=== PATIENT | female | born 1975 | race Caucasian/White ===

== ENCOUNTER 2020-05-25 07:59 | Outpatient (CLI) | payer BC, SELFPAY ==
--- NOTE | ~2020-05-25 | MM_ITS ---
EXAMINATION: MM screening urszula BI w lana HISTORY: Screening TECHNIQUE: Craniocaudal and mediolateral oblique 3-D tomosynthesis images were obtained and synthetic 2-D images were generated. CAD analysis was submitted and interpreted. COMPARISON: Comparison to multiple prior studies sequentially, with oldest reviewed study dated 03/2014. BREAST PARENCHYMAL COMPOSITION: There are scattered areas of fibroglandular density. FINDINGS: There are developing cluster of nonspecific calcifications mid outer aspect of the right br east. There is developing focal asymmetry in the lower outer quadrant of the left breast. IMPRESSION: 1. Developing clustered right breast calcifications and focal left breast asymmetry. 2. Additional mammographic views and possible breast ultrasound are recommended. BI-RADS Category 0: Incomplete: Needs additional imaging evaluation. Reviewed, dictated and finalized at location A. IMPRESSION: 1. Developing clustered right breast calcifications and focal left breast asymm etry. 2. Additional mammographic views and possible breast ultrasound are recommended . BI-RADS Category 0: Incomplete: Needs additional imaging evaluation.
== END 2020-05-25 08:00 | disposition home or self-care (01) ==
LOC: ANHIMG 08:02
PROVIDERS: PCP Family Medicine; Visit Provider Family Medicine
DX: Z12.31 Encounter for screening mammogram for malignant neoplasm of breast (principal); R92.8 Other abnormal and inconclusive findings on diagnostic imaging of breast
CPT/HCPCS: 77063; 77067

== ENCOUNTER 2020-06-16 11:20 | Outpatient (CLI) | payer BC, SELFPAY ==
--- NOTE | ~2020-06-16 | MMUS_ITS ---
EXAMINATION: MM diagnostic mammo BI, US breast LT limited HISTORY: Right breast calcifications and left breast mass on screening mammogram TECHNIQUE: Additional 3-D tomosynthesis images of the breasts were performed and synthetic 2-D images were generated. CAD analysis was submitted and interpreted. High resolution limited left breast ultr asound was performed. COMPARISON: 05/25/2020, 05/07/2019, 12/25/2018, 12/03/2018 FINDINGS: MAMMOGRAPHIC FINDINGS: Right breast: There are grouped fine pleomorphic calcifications in the middle third of the outer diane st at the 9:00 location 7 cm from the nipple. Left breast: There is a 7 mm low density oval, obscured mass in the middle third of the lower breast at the 6:00 location 5 cm from the nipple. ULTRASOUND: There is a 6 mm round hypoechoic mass at the 5:00 location 4 cm from the nipple which demonstrates po sterior acoustic enhancement and no internal vascularity. IMPRESSION: 1. Suspicious grouped calcifications in the right breast. Stereotactic biopsy is recommended. 2. Likely complicated cyst of the left breast. Follow-up diagnostic mammogram and ultrasound of the l eft breast in six months are recommended. BI-RADS category 4, suspicious findings. Reviewed, dictated and finalized at location A. IMPRESSION: 1. Suspicious grouped calcifications in the right breast. Stereotactic biopsy i s recommended. 2. Likely complicated cyst of the left breast. Follow-up diagnostic mammogram a nd ultrasound of the left breast in six months are recommended. BI-RADS category 4, suspicious findings.
== END 2020-06-16 11:21 | disposition home or self-care (01) ==
PROVIDERS: PCP Family Medicine; Visit Provider Physician Assistant
DX: R92.8 Other abnormal and inconclusive findings on diagnostic imaging of breast (principal)
CPT/HCPCS: 76642; 77066

== ENCOUNTER → 2020-06-24 10:08 | Outpatient (CLI) | payer BC, SELFPAY ==
--- NOTE | ~2020-06-24 | DEXA_ITS ---
Bone Density Report Name: Rebecca Pantoja Age: 45 Sex: Female Ethnicity: White Date of : 1975 Indication: postmenopausal; hysterectomy; Referring Provider: CHAZ, SHAINA Study: Bone densitometry was performed. Exam Date: June 24, 2020 Accession number: [id number] Bone Density: Region BMD T-score Z-score Classification AP Spine (L1-L4) 1.329 2.6 3.1 Normal Femoral Neck (Left) 1.115 2.4 3.0 Normal Total Hip (Left) 1.177 1.9 2.3 Normal Femoral Neck (Right) 1.027 1.6 2.2 Normal Total Hip (Right) 1.149 1.7 2.1 Normal Total Hip Mean 1.163 1.8 2.2 Normal World Health Organization criteria for BMD impression classify patients as: Normal (T-score at or above -1.0), Osteopenia (T-score between -1.0 and -2.5), or Osteoporosis (T-score at or below -2.5). 10-year Fracture Risk: FRAX not reported because: All T-scores for Spine Total, Hip Total, Femoral Neck at or above -1.0 Treated for osteoporosis Clinical Information Provided by Patient: Is being treated for osteoporosis Has used the following medications: HRT (i.e. estrogen/hormone therapy) Has the following medical conditions: Hysterectomy Patient maximum height was 65 Menopause Age: 45 Does not regularly consume dairy products Drinks caffeinated beverages Onset of menses at age 10 Number of children 2 Impression: The patient has normal bone mass. Discussion: It is important to ask patients whether they are taking their medications and to encourage continued and appropriate compliance with their osteoporosis therapies to reduce fracture risk. It is also important to review their risk factors and encourage appropriate calcium and vitamin D intakes, exercise, fall prevention and other lifestyle measures. Follow-Up: Consider a repeat BMD and Vertebral Fracture Assessment (VFA) exam in 2 years or sooner if medically necessary, to reassess this patient's status. Reported by: HARRY on 06/24/2020 10:40:00 AM. Reviewed, dictated and finalized at location ADee WONG
== END ==
PROVIDERS: Visit Provider Nurse Practitioner
DX: Z13.820 Encounter for screening for osteoporosis (principal); Z78.0 Asymptomatic menopausal state
CPT/HCPCS: 77080

== ENCOUNTER 2020-12-23 12:41 | Outpatient (CLI) | payer BC, SELFPAY ==
--- NOTE | ~2020-12-23 | MM_ITS ---
EXAMINATION: MM diagnostic urszula BI w lana HISTORY: Recent breast stereotactic biopsy at outside institution TECHNIQUE: Additional 3-D tomosynthesis images of the breasts were performed and synthetic 2-D images were generated. CAD analysis was submitted and interpreted. COMPARISON: Comparison to multiple prior studies sequentially, with oldest reviewed study dated 03/06. BREAST PARENCHYMAL COMPOSITION: Breast composed of scattered areas of fibroglandular density. FINDINGS: There is focal architectural distortion in the mid lateral aspect of the right breast is ne w from prior studies, although corresponds to the area of calcifications noted on prior examination d ated 06/16/2020. No tissue marker is identified to correspond to the area of biopsy. The left breast i s stable without evidence for malignancy. There is an older tissue marker anteriorly in the right ny ast in the upper outer quadrant near the nipple. IMPRESSION: 1. New architectural distortion mid lateral aspect of the right breast likely corresponds to recent b enign biopsy site, although no tissue marker is demonstrated. 2. Recommend 6 month follow-up diagnostic right mammogram BI-RADS category 3, probably benign findings. Reviewed, dictated and finalized at location A. CENTER RECRUITER IMPRESSION: 1. New architectural distortion mid lateral aspect of the right breast likely c orresponds to recent benign biopsy site, although no tissue marker is demonstra jairo. 2. Recommend 6 month follow-up diagnostic right mammogram BI-RADS category 3, probably benign findings.
== END 2020-12-23 12:42 | disposition home or self-care (01) ==
LOC: ANHIMG 12:44
PROVIDERS: PCP Family Medicine
DX: R92.8 Other abnormal and inconclusive findings on diagnostic imaging of breast (principal)
CPT/HCPCS: 77062; 77066; G0279

== ENCOUNTER 2021-07-13 11:41 | Outpatient (CLI) | payer BC, SELFPAY ==
--- NOTE | ~2021-07-13 | MMUS_ITS ---
EXAMINATION: MM diagnostic urszula RT w lana, US breast RT limited HISTORY: Six-month follow-up TECHNIQUE: ML, MLO and craniocaudal 3-D tomosynthesis images of the right breast were performed and s ynthetic 2-D images were generated. CAD analysis was submitted and interpreted. High resolution upper outer and lower outer quadrant right breast ultrasound was performed. COMPARISON: 12/23/2020, 06/16/2020 bilateral diagnostic digital mammogram examinations 05/25/2020 bilateral digital screening mammogram BREAST PARENCHYMAL COMPOSITION: There are scattered areas of fibroglandular density. FINDINGS: MAMMOGRAPHIC FINDINGS: There is stable postoperative change of the right breast following reported benign right lumpectomy. No interval suspicious mass or new architectural distortion, malignant calcification, skin thickening or retraction is evident. ULTRASOUND: 11:00 3 cm from nipple: 3.6 mm simple cyst with through transmission posterior enhancement There is some ill-defined shadowing associated with scar at 7:00 position 6 cm from the nipple IMPRESSION: 1. Probable benign postoperative change 2. Diagnostic right mammogram and targeted right breast ultrasound follow-up are recommended in 6 mon ths BI-RADS category 3, probably benign findings. Reviewed, dictated and finalized at location A. IMPRESSION: 1. Probable benign postoperative change 2. Diagnostic right mammogram and targeted right breast ultrasound follow-up ar e recommended in 6 months BI-RADS category 3, probably benign findings.
== END 2021-07-13 11:42 | disposition home or self-care (01) ==
PROVIDERS: PCP Family Medicine
DX: N60.01 Solitary cyst of right breast (principal)
CPT/HCPCS: 76642; 77061; 77065; G0279

== ENCOUNTER 2022-01-11 13:42 | Outpatient (CLI) | payer BC, SELFPAY ==
--- NOTE | ~2022-01-11 | MMUS_ITS ---
EXAMINATION: MM diagnostic urszula BI w lana, US breast RT limited HISTORY: Six-month follow-up of probable benign postoperative change at 7:00 6 cm from nipple TECHNIQUE: ML, MLO and CC 3-D tomosynthesis images of both breasts were performed and synthetic 2-D i mages were generated. CAD analysis was submitted and interpreted. High resolution limited right breas t ultrasound was performed. COMPARISON: 07/13/2021 diagnostic right mammogram and limited right breast ultrasound FINDINGS: MAMMOGRAPHIC FINDINGS: Stable asymmetry in the outer right breast on CC projection since 07/13/2021, likely postoperative wilfredo nge. ULTRASOUND: Stable focal ill-defined hypoechogenicity/shadowing at 7:00 6 cm from the nipple at the area of the s urgical scar, likely postoperative change. Previous reported 11:00 cyst 3 cm from the nipple is no longer present, having resolved since 07/13/20 21 IMPRESSION: 1. Postoperative changes of right breast; no evidence of malignancy 2. Routine annual mammographic screening is recommended. BI-RADS Category 2: Benign finding(s). Reviewed, dictated and finalized at location A. IMPRESSION: 1. Postoperative changes of right breast; no evidence of malignancy 2. Routine annual mammographic screening is recommended. BI-RADS Category 2: Benign finding(s).
== END 2022-01-11 13:43 | disposition home or self-care (01) ==
PROVIDERS: PCP Family Medicine
DX: R92.8 Other abnormal and inconclusive findings on diagnostic imaging of breast (principal)
CPT/HCPCS: 76642; 77062; 77066; G0279

== ENCOUNTER 2022-12-04 08:00 | Outpatient (NON) | payer OTHER, SELFPAY | END 2022-12-04 08:01 | disposition home or self-care (01) | PROVIDERS: PCP Family Medicine; Visit Provider Internal Medicine Gastroenterology | DX: Z12.11 Encounter for screening for malignant neoplasm of colon (principal) | CPT/HCPCS: 88305 ==

== ENCOUNTER 2022-12-04 10:58 | Day surgery (SDC) | payer OTHER, SELFPAY ==
[2022-10-26 11:45] VITALS: BMI 36.3
[2022-11-22 10:11] VITALS: BMI 35.9
[2022-12-04 11:29] VITALS: BP 132/89; PULSE 82; RESP 16; TEMP 36.8; O2SAT 97
[2022-12-04] MEDS: LACTATED RINGERS 1,000 ML 150 ML IV CONT (11:38)
--- NOTE | 2022-12-04 11:52 | WPDANESEPPF ---
Anes - Initial Pre Proc Eval Procedure: Operation Date: 12/04/22 13:00 Proposed Procedures p Diagnostic Colonoscopy - Sherwin Marquis MD Date/Time: 12/04/22 11:52 Surgeon: Sherwin Marquis MD Pre Op Diagnosis: Change in Bowel Habits Patient Data Age: 47 Gender: F Height: 1.65 m Weight: 98 kg Last Vital Signs Temp 36.8 C 12/04/22 11:29 Pulse 82 12/04/22 11:29 Resp 16 12/04/22 11:29 BP 132/89 12/04/22 11:29 Pulse Ox 97 12/04/22 11:29 O2 Del Method Room Air 12/04/22 11:29 Allergies Allergy/AdvReac Type Severity Reaction Status Date / Time Penicillins Allergy Intermediate Hives Verified 12/04/22 11:23 liraglutide [From Saxenda] AdvReac Unknown nausea Verified 12/04/22 11:23 Home Medications Medication Instructions Recorded Confirmed Type ubidecarenone-omega 3-vit E 25 1 cap PO DAILY 07/05/22 12/04/22 History mg-150 (90-60) mg-200 unit capsule (Co G-66-Swcyntn E-Fish Oil) cholestyramine-aspartame 4 gram 4 g PO BID #239.4 grams 10/24/22 12/04/22 Rx oral powder (Cholestyramine Light) venlafaxine 75 mg capsule,extended 75 mg PO QPM #90 caps 10/24/22 12/04/22 Rx release 24 hr vitamin B complex (B 1 tablet PO DAILY 11/22/22 12/04/22 History Complex-Vitamin B12 tablet) Patient hx anesthesia problems: none Family hx anesthesia problems: none Results Review: All pre-operative results and documents have been reviewed as part of the pre-operative evaluation. [facility] Past Medical History Medical History Intermittent palpitations Patellofemoral syndrome, right Perimenopausal menorrhagia Family History Family History Mother Family history of thyroid disease Depression Family history of malignant neoplasm of ovary Family history of malignant neoplasm of cervix Family history of malignant neoplasm of thyroid Father Diabetes mellitus Family history of arthritis Family history of diabetes mellitus in first degree relative Grandparent Family history of coronary artery disease Other Family history of Alzheimer's disease Family history of cardiovascular disease Family history of congestive heart failure Social History Social History Smoking packs per day: 1.5 Smoking cigarettes per day: 30.0 Years smoked: 20 Smoking pack-years: 30.00 Smoking status: Former smoker Tobacco type: cigarettes Smoking end date: 10/21/12 Alcohol intake: current Drinks per week: 1 Alcohol use details: 1-2 PER MONTH Substance use: current Substance use type: marijuana Other substance usage details: TAKE A GUMMY AT NIGHT TO SLEEP Last use: 11/21/22 Lack of Transportation: No Lack of Food: Never True Current Housing: I Have Housing Concerned About Future Housing: No Difficulty Paying Gas/Electric Bills: No Difficulty Paying for Meds: No Currently Unemployed: No Education: Trade/Vocational Certificate Difficulty w/ Childcare or Family Care: No Living arrangements: with family Spiritual care concerns: No Anes - Eval Final PreProcedure Day of Procedure 12/04/22 11:52 Patient weight: obese Heart: regular rate and rhythm Lungs: clear to auscultation Airway: Mallampati scale class II Last oral intake: >/= 8 hours ASA classification: II Emergent: no Anesthetic plan: proceed Anesthesia type and monitoring: general GIVS and standard monitoring Results Review: All pre-operative results and documents have been reviewed as part of the pre-operative evaluation. Informed Consent: The patient's anesthetic plan and its attendant risks and benefits were discussed with the patient/family/POA. Questions were solicited and answers provided to the satisfaction of the patient/family/POA.
--- NOTE | 2022-12-04 12:31 | PM.HPGS ---
History of Present Illness History of Present Illness Consent: Risks, benefits, and alternatives have been discussed and questions answered. Patient agrees to proceed with procedure. Chief complaint: Change in Bowel Habits Narrative: Rebecca Pantoja is a 47 year old female here for first screening colonoscopy Review of Systems Constitutional: Constitutional: Denies headache(s) and Denies weakness Eyes: Eyes: Denies blurry vision ENT: Reports Normal hearing present, Denies headache(s) and Denies neck pain Cardiovascular: Cardiovascular: Denies chest pain and Denies dyspnea Respiratory: Respiratory: Denies dyspnea Gastrointestinal: Gastrointestinal: Reports no additional gastrointestinal complaints Genitourinary: Genitourinary: Denies dysuria Musculoskeletal: Musculoskeletal: Denies neck pain Integumentary/Breasts: Skin/Breast: Denies dry skin Neurologic: Reports Normal hearing present, Denies headache(s) and Denies weakness Psychiatric: Psychiatric: Denies anxiety Endocrine: Endocrine: Denies change in body appearance Hematologic/Lymphatic: Hematologic/Lymphatic: Denies easy bleeding Allergic/Immunologic: Allergic/Immunologic: Denies urticaria PMFSH Past Medical History Medical History (Updated 12/04/22 @ 12:32 by Sherwin Marquis MD) Colon cancer screening Intermittent palpitations Patellofemoral syndrome, right Perimenopausal menorrhagia Family History Family History Mother Family history of thyroid disease Depression Family history of malignant neoplasm of ovary Family history of malignant neoplasm of cervix Family history of malignant neoplasm of thyroid Father Diabetes mellitus Family history of arthritis Family history of diabetes mellitus in first degree relative Grandparent Family history of coronary artery disease Other Family history of Alzheimer's disease Family history of cardiovascular disease Family history of congestive heart failure Social History Social History Smoking packs per day: 1.5 Smoking cigarettes per day: 30.0 Years smoked: 20 Smoking pack-years: 30.00 Smoking status: Former smoker Tobacco type: cigarettes Smoking end date: 10/21/12 Alcohol intake: current Drinks per week: 1 Alcohol use details: 1-2 PER MONTH Substance use: current Substance use type: marijuana Other substance usage details: TAKE A GUMMY AT NIGHT TO SLEEP Last use: 11/21/22 Lack of Transportation: No Lack of Food: Never True Current Housing: I Have Housing Concerned About Future Housing: No Difficulty Paying Gas/Electric Bills: No Difficulty Paying for Meds: No Currently Unemployed: No Education: Trade/Vocational Certificate Difficulty w/ Childcare or Family Care: No Living arrangements: with family Spiritual care concerns: No Meds Home Medications and Allergies Home Medications Medication Instructions Recorded Confirmed Type ubidecarenone-omega 3-vit E 25 1 cap PO DAILY 07/05/22 12/04/22 History mg-150 (90-60) mg-200 unit capsule (Co Z-10-Trftyxt E-Fish Oil) cholestyramine-aspartame 4 gram 4 g PO BID #239.4 grams 10/24/22 12/04/22 Rx oral powder (Cholestyramine Light) venlafaxine 75 mg capsule,extended 75 mg PO QPM #90 caps 10/24/22 12/04/22 Rx release 24 hr vitamin B complex (B 1 tablet PO DAILY 11/22/22 12/04/22 History Complex-Vitamin B12 tablet) Allergies Allergy/AdvReac Type Severity Reaction Status Date / Time Penicillins Allergy Intermediate Hives Verified 12/04/22 11:23 liraglutide [From Saxenda] AdvReac Unknown nausea Verified 12/04/22 11:23 Vital Signs Vital Signs - 24 hr 12/04/22 11:29 Temperature 98.3 F Pulse Rate 82 Respiratory Rate 16 Blood Pressure 132/89 Pulse Oximetry 97 Oxygen Delivery Room Air Exam Const: General: comfortable and no acute
[2022-12-04 13:00] VITALS: BP 106/60; PULSE 69; RESP 16; O2SAT 99
[2022-12-04 13:10] VITALS: BP 104/66; PULSE 63; RESP 16; O2SAT 100
--- NOTE | 2022-12-04 13:17 | WPDANESPN ---
Anes - Prog Note Post-Op Date/Time: 12/04/22 13:17 Cardiovascular status: normal Respiratory status: normal Airway patency: baseline Mental status: baseline Post-Op hydration status: normal Vital Signs: Last Vital Signs Temp 36.8 C 12/04/22 11:29 Pulse 82 12/04/22 11:29 Resp 16 12/04/22 11:29 BP 132/89 12/04/22 11:29 Pulse Ox 97 12/04/22 11:29 O2 Del Method Room Air 12/04/22 11:29 Pain Score (VAS): 0/10 Patient Feedback: Patient satisfied with anesthetic care.
[2022-12-04 13:20] VITALS: BP 119/80; PULSE 60; RESP 16; O2SAT 99
== END 2022-12-04 13:35 | disposition home or self-care (01) ==
PROVIDERS: PCP Family Medicine; Visit Provider Internal Medicine Gastroenterology
PROC: 0DJD8ZZ Inspection of Lower Intestinal Tract, Via Natural or Artificial Opening Endoscopic (ICD-10-PCS; CPT 45378; principal; 2022-12-04 13:00)
DX: Z12.11 Encounter for screening for malignant neoplasm of colon (principal)
CPT/HCPCS: 45385

== ENCOUNTER 2023-10-18 07:27 | Outpatient (CLI) | payer OTHER, SELFPAY ==
--- NOTE | ~2023-10-18 | MM_ITS ---
EXAMINATION: MM screening urszula BI w lana HISTORY: Screening mammogram TECHNIQUE: Craniocaudal and mediolateral oblique 3-D tomosynthesis images were obtained and synthetic 2-D images were generated. CAD analysis was submitted and interpreted. COMPARISON: 01/11/2022 diagnostic bilateral mammogram and limited right breast ultrasound 07/13/2021 diagnostic right mammogram and limited right breast ultrasound 12/23/2020 bilateral diagnostic mammogram BREAST PARENCHYMAL COMPOSITION: There are scattered areas of fibroglandular density. FINDINGS: Biopsy marker on the right; history of prior benign right breast biopsy. Stable mild fibro glandular asymmetry. There is no evidence of suspicious mass, calcification, or architectural distort ion to suggest malignancy in either breast. There has been no suspicious interval change. IMPRESSION: 1. No mammographic evidence of malignancy. 2. Recommend routine screening mammography in one year. BI-RADS Category 2: Benign finding(s). Reviewed, dictated and finalized at location A. IMEDIA DESIGNER
== END 2023-10-18 07:28 | disposition home or self-care (01) ==
PROVIDERS: PCP Family Medicine; Visit Provider Family Medicine
DX: Z12.31 Encounter for screening mammogram for malignant neoplasm of breast (principal)
CPT/HCPCS: 77063; 77067

== ENCOUNTER 2023-12-26 12:41 | Outpatient (CLI) | payer OTHER, SELFPAY ==
--- NOTE | ~2023-12-26 | MR_ITS ---
EXAMINATION: MR brain/brain stem wo/w con DATE: 12/26/2023 13:43 INDICATION: Other amnesia. Confusion. TECHNIQUE: Magnetic resonance imaging (MRI) of the brain and brainstem was performed without and with 15 mL MultiHance intravenous contrast. COMPARISON: None. FINDINGS: There is no intracranial hemorrhage, acute infarction, or abnormal intracranial mass lesion . The ventricles are normal in size. The paranasal sinuses are clear. The orbits are normal. The mast oid air cells are normal. IMPRESSION: 1. Normal brain. Reviewed, dictated and finalized at location E. MANAGER IMPRESSION: 1. Normal brain.
== END 2023-12-26 12:42 ==
LOC: GOSHIMG 12:42
PROVIDERS: PCP Family Medicine; Visit Provider Family Medicine
DX: R41.3 Other amnesia (principal)
CPT/HCPCS: 70553; A9577

== ENCOUNTER 2024-01-02 13:11 | Outpatient (CLI) | payer OTHER, SELFPAY | END 2024-01-02 13:12 | disposition home or self-care (01) | LOC: ANHAUDIO 13:12 | PROVIDERS: PCP Family Medicine; Visit Provider Family Medicine | DX: H90.3 Sensorineural hearing loss, bilateral (principal) | CPT/HCPCS: 92557; 92567 ==

== ENCOUNTER 2024-03-06 13:41 | Outpatient (CLI) | payer OTHER, SELFPAY ==
--- NOTE | 2024-03-06 14:34 | ECG_ITS ---
SEE SCANNED COPY FOR CONFIRMED REPORT MTDD
[2024-03-06 16:16] LABS: Urine Cotinine NEGATIVE
== END 2024-03-06 13:42 | disposition home or self-care (01) ==
LOC: ANHSURGERY 13:44
PROVIDERS: PCP Family Medicine; Visit Provider Orthopaedic Surgery
DX: Z01.818 Encounter for other preprocedural examination (principal); M17.0 Bilateral primary osteoarthritis of knee
CPT/HCPCS: 80307; 83036; 87081; 93005

== ENCOUNTER 2024-03-26 00:42 | Day surgery (SDC) | payer OTHER, SELFPAY ==
[2024-03-06 13:56] VITALS: BMI 31.8
--- NOTE | 2024-03-06 14:15 | PC.NURSE ---
Report to the Outpatient Waiting Room, entrance under the green pavilion located off [facility], at time _6:00 AM on date __03/26/24 . Planned Procedure Time: 7:30 AM . Time changes happen often and if your time is changed the preop area will call you the afternoon before. - You and your visitor will be asked to self-screen and do not enter if you have any COVID symptoms. - A mask is optional within the hospital at this time. Patients may have clear liquids (water, carbonated beverages, clear teas, apple juice) until 3 hours prior to surgery( 4:30AM) with a maximum of 20 ounces. - No food from midnight until time of surgery - Infants may have breast milk until 4 hours before surgery, infant formula 6 hours prior to surgery. - Children will be allowed to drink immediately following surgery. If applicable, please bring a bottle or sippy cup to assist with drinking. Juice, water, soda, and popsicles are readily available. For infants on formula, please bring formula the day of surgery. Pacifiers are allowed. Take the following medications with a SIP of water the morning of surgery: _VENLAFAXINE DO NOT STOP ANY OF YOUR OTHER PRESCRIPTION MEDICATIONS PRIOR TO SURGERY ?EXCEPT THE FOLLOWING Medications to discontinue per physician __HOLD IBUPROFEN 7 _DAYS PER OP PER DR SNYDER .LAST DOSE 03/18/24. MAY TAKE TYLENOL IF NEEDED FOR PAIN. HOLD TIRZEPATIDE 10 DAYS PRE OP PER ANESTHESIA.LAST DOSE 03/09/24 Please no make-up, nail korean, hairspray, perfume, deodorant, or body powder the day of surgery. No jewelry (including any body piercings) or valuables the day of surgery, leave them at home. Please take a shower or bath the night before, or the morning of, surgery with an antibacterial soap. Wear comfortable, loose fitting clothing. Children are encouraged to wear pajamas. - Jewelry must be removed prior to entering the operating room. Rings and piercings that are not removed may be cut off. - The hospital will not accept responsibility for valuables. - Please leave all valuables, including medications, at home the day of surgery. If you are going home after surgery, a licensed fence post driver must drive you home. - NO public transportation without another adult if you receive anesthesia. - We recommend that an adult stay with you for 24 hours following discharge. - We also recommend that you do not drive, make important decision, drink alcoholic beverages, or take any drugs that were not prescribed by your health care provider for at least 24 hours after your discharge time. Follow any additional instructions given to you from your surgeon. If you or anyone in your household have experienced Covid symptoms in the past week, please notify your surgeon or the nurse liaison at the phone number below for possible testing. VERBAL AND WRITTEN instructions given to ___PATIENT and asked if any additional questions and then verbalized understanding. Patient advised to call surgeon office or pre surgery nurse liaison [phone] if any additional questions.
[2024-03-06 14:32] VITALS: BP 114/72; PULSE 69; RESP 18; TEMP 37.1; O2SAT 100
--- NOTE | 2024-03-25 07:36 | PM.IMHP ---
H&P: HPI History of Present Illness Date/Time: 03/25/24 07:36 Chief Complaint: Bilateral knee DJD Narrative: 49-year-old female who presents today for a left total knee arthroplasty with cortisone injection in the right knee. She has been having symptoms in her knees for several years. She had arthroscopy done to the left knee about 5 years ago. Since that time she has been having progressively worsening symptoms in the knee. She has tried different anti-inflammatories. She had intolerance to Celebrex. Diclofenac and ibuprofen caused her GI distress and had stop these. She has had cortisone injections in the past. Last injection was in October of this year which gave her about 2 months relief. She has tried Euflexxa injections in the past without improvement of her symptoms. At this point patient is having symptoms on a daily basis and they are not improving with nonsurgical treatment. She feels this point she is ready to proceed with total knee arthroplasty rather continue nonsurgical treatment Review of Systems Review of Systems: All systems reviewed & are unremarkable except as noted in HPI and below PMFSH Past Medical History Medical History (Updated 02/09/24 @ 12:38 by Raulito Norton MD) Colon cancer screening Intermittent palpitations Patellofemoral syndrome, right Perimenopausal menorrhagia Surgical History Surgical History (Updated 02/05/24 @ 10:55 by Sangita Malik CMA) History of arthroscopy of left knee History of breast biopsy History of cholecystectomy History of lumpectomy S/P ALOK-BSO 9.24.23 complex hyperplasia of endometrium with atypia Family History Family History Mother Family history of thyroid disease Depression Family history of malignant neoplasm of ovary Family history of malignant neoplasm of cervix Family history of malignant neoplasm of thyroid Father Diabetes mellitus Family history of arthritis Family history of diabetes mellitus in first degree relative Grandparent Family history of coronary artery disease Other Family history of Alzheimer's disease Family history of cardiovascular disease Family history of congestive heart failure Social History Social History (Updated 02/05/24 @ 10:56 by Sangita Malik CMA) Smoking packs per day: 1.5 Smoking cigarettes per day: 30.0 Years smoked: 20 Smoking pack-years: 30.00 Smoking status: Former smoker Tobacco type: cigarettes Smoking end date: 10/21/10 Additional smoking assessment comments: DENIES ANY FORM OF TOBACCO USE Alcohol intake: current Drinks per week: 1 Alcohol use details: ONE DRINK PER MONTH Substance use: current Substance use type: marijuana Other substance usage details: TAKE A GUMMY AT NIGHT TO SLEEP Last use: JANUARY 20 2024 Do You Feel Safe in your Home?: Yes Lack of Transportation: No Lack of Food: Never True Current Housing: I Have Housing Concerned About Future Housing: No Difficulty Paying Gas/Electric Bills: No Difficulty Paying for Meds: No Currently Unemployed: No Education: Trade/Vocational Certificate Difficulty w/ Childcare or Family Care: No Living arrangements: with family Occupation/Education: occupation 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
[2024-03-26] VITALS (13 sets, daily range): BP systolic 104–125; BP diastolic 51–75; PULSE 68–86; RESP 12–18; TEMP 36.2–37.4; O2SAT 94–100
--- NOTE | ~2024-03-26 | XR_ITS ---
EXAMINATION: [id number] DATE: 03/26/2024 11:20 CDT INDICATION: Left total knee arthroplasty TECHNIQUE: 2 views left knee FINDINGS: There is a left total knee arthroplasty in expected position. Subcutaneous gas with fluid and air in the joint are consistent with recent surgery. No evidence of periprosthetic fracture. IMPRESSION: 1. Recent left total knee arthroplasty. Reviewed, dictated and finalized at location B.
[2024-03-26] MEDS: LACTATED RINGERS 1,000 ML 30 ML IV CONT ×2 (06:45→11:04)
[2024-03-26] MEDS: ACETAMINOPHEN 500 MG TABLET 1000 MG PO (06:45)
[2024-03-26] MEDS: VANCOMYCIN 1,250 MG/NS 250 ML BAG 166.67 MG IVPB (06:45)
[2024-03-26] MEDS: TRANEXAMIC ACID 1,000MG/ISO100 1,000 MG/100 ML BAG 200 MG IVPB (06:45)
--- NOTE | 2024-03-26 07:08 | WPDHPUPDATE1 ---
History and Physical Update Update Date/Time: 03/26/24 07:08 History and Physical has been reviewed, including an updated exam of the patient. There are NO changes in the patient's condition. Risks, benefits, and alternatives have been discussed and questions answered. Patient agrees to proceed with procedure.
--- NOTE | 2024-03-26 07:19 | WPDANESEPPF ---
Anes - Initial Pre Proc Eval Procedure: Operation Date: 03/26/24 07:30 Proposed Procedures p Left Total Knee Arthroplasty, Cortisone Injection Right Knee - Raulito Norton MD Date/Time: 03/26/24 07:19 Surgeon: Raulito Norton MD Pre Op Diagnosis: OA bilat knees Patient Data Age: 49 Gender: F Height: 1.65 m Weight: 86.2 kg Last Vital Signs Temp 99 F 03/26/24 06:45 Pulse 68 03/26/24 06:45 Resp 14 03/26/24 06:45 BP 118/72 03/26/24 06:45 Pulse Ox 97 03/26/24 06:45 O2 Del Method Room Air 03/26/24 06:45 Allergies Allergy/AdvReac Type Severity Reaction Status Date / Time Penicillins Allergy Intermediate Hives Verified 03/26/24 07:05 Home Medications Medication Instructions Recorded Confirmed Type tirzepatide (weight loss) 7.5 See Rx Instructions .Route 01/07/24 03/06/24 Rx mg/0.5 mL subcutaneous pen .COMPLEX #4 mL injector (Zepbound) ibuprofen 800 mg tablet 800 mg PO TID PRN Pain 03/06/24 03/06/24 History omeprazole 20 mg capsule,delayed 20 mg PO PRN PRN Heartburn 03/06/24 03/06/24 History release venlafaxine 75 mg capsule,extended 75 mg PO QAM 03/06/24 03/26/24 History release 24 hr tirzepatide (weight loss) 10 10 mg (0.5 mL) subcut WEEKLY #2 mL 03/25/24 03/26/24 Rx mg/0.5 mL subcutaneous pen injector (Zepbound) Patient hx anesthesia problems: none Family hx anesthesia problems: none Results Review: All pre-operative results and documents have been reviewed as part of the pre-operative evaluation. [facility] Past Medical History Medical History (Updated 02/09/24 @ 12:38 by Raulito Norton MD) Colon cancer screening Intermittent palpitations Patellofemoral syndrome, right Perimenopausal menorrhagia Surgical History Surgical History (Updated 02/05/24 @ 10:55 by Sangita Malik [facility]) History of arthroscopy of left knee History of breast biopsy History of cholecystectomy History of lumpectomy S/P ALOK-BSO 9.24.23 complex hyperplasia of endometrium with atypia Family History Family History (Reviewed 02/05/24 @ 10:55 by Sangita Malik [facility]) Mother Family history of thyroid disease Depression Family history of malignant neoplasm of ovary Family history of malignant neoplasm of cervix Family history of malignant neoplasm of thyroid Father Diabetes mellitus Family history of arthritis Family history of diabetes mellitus in first degree relative Grandparent Family history of coronary artery disease Other Family history of Alzheimer's disease Family history of cardiovascular disease Family history of congestive heart failure Social History Social History (Updated 02/05/24 @ 10:56 by Sangita Malik [facility]) Smoking packs per day: 1.5 Smoking cigarettes per day: 30.0 Years smoked: 20 Smoking pack-years: 30.00 Smoking status: Former smoker Tobacco type: cigarettes Smoking end date: 10/21/10 Additional smoking assessment comments: DENIES ANY FORM OF TOBACCO USE Alcohol intake: current Drinks per week: 1 Alcohol use details: ONE DRINK PER MONTH Substance use: current Substance use type: marijuana Other substance usage details: TAKE A GUMMY AT NIGHT TO SLEEP Last use: JANUARY 20 2024 Do You Feel Safe in your Home?: Yes Lack of Transportation: No Lack of Food: Never True Current Housing: I Have Housing Concerned About Future Housing: No Difficulty Paying Gas/Electric Bills: No Difficulty Paying for Meds: No Currently Unemployed: No Education: Trade/Vocational Certificate Difficulty w/ Childcare or Family Care: No Living arrangements: with family Occupation/Education: occupation Additional occupation/education comments: [employer] Spiritual care concerns: No Anes - Eval Final PreProcedure Day of Procedure 03/26/24 07:19 Patient weight: normal Heart: regular rate and rhythm Lungs: clear to auscultation Airway: Mallampati scale class II
[2024-03-26] MEDS: diphenhydrAMINE HCl INJ 50 MG/ML VIAL 25 MG IV PUSH (07:20)
[2024-03-26] MEDS: ceFAZolin 2 GM/D5W 50 ML 2 GM/50 ML BAG IVPB ×2 (07:34→16:18)
--- NOTE | 2024-03-26 07:34 | SUR.PREOP ---
At 0715, i walked pt back from bathroom. She reported some itching at this time. I slowed vanc down from 166 ml/hr to 100 ml/hr. pt head continued to increase itching. As i was still in the room, welts started forming on her forehead. i then stopped Vanc as dr Lorenz walked in to interview pt. I told Dr Lorenz what was going on, he ordered 25mg benadryl and told me to keep the vanc off. I notified Dr Norton, he advised to consult Dr Lorenz for decision. Dr Lorenz ordered Vanc to be stopped.. Pt starting getting relief from Benadryl and welts were already getting smaller by 0730.
[2024-03-26] MEDS: ceFAZolin SODIUM 1 GM VIAL 3 GM (08:11)
[2024-03-26] MEDS: SODIUM CHLORIDE 0.9% IV 37.7 ML, MORPHINE SULFATE INJ (*CRX) 2 MG, ROPivacaine HCL 1% 2... INFILTRATE (08:11)
[2024-03-26] MEDS: methylPREDNISolone ACETATE 80 MG/ML VIAL IM (08:31)
[2024-03-26] MEDS: ceFAZolin SODIUM 1 GM VIAL 2 GM IV PUSH (10:08)
[2024-03-26] MEDS: TRANEXAMIC ACID 1,000 MG/10 ML AMPUL 1000 MG IV PUSH (10:20)
[2024-03-26] MEDS: KETOROLAC 15 MG/ML VIAL (*BKC) IV PUSH ×3 (10:58→18:06)
[2024-03-26] MEDS: fentaNYL CITRATE INJ (*CRX) 100 MCG/2 ML VIAL 25 MCG IV PUSH ×4 (11:15→11:40)
--- NOTE | 2024-03-26 11:25 | W.PM.PROC2 ---
Procedure Note - Detailed Date of Procedure 03/26/24 Pre-op Diagnosis OA bilat knees Post-op Diagnosis Same Procedure Performed Cortisone injection right knee, left total knee arthroplasty Surgeon Raulito Norton MD [employer] PAC Anesthesia General Description of Procedure Patient was noted to have some hives on her forehead and itching around her head and neck this started approximately 15 minutes after initiation of vancomycin infusion and therefore patient will be considered allergic to vancomycin. Her symptoms improved with 25 mg of IV Benadryl. Patient was brought to the operating room and general anesthesia was administered. 2 g of IV Ancef were administered and patient was carefully watch for signs of allergic reaction and there were none. The Right knee was prepped with ChloraPrep and 80 mg of Depo-Medrol 4 cc 1% lidocaine injected through a lateral parapatellar approach without difficulty. Her left knee was prepped draped usual fashion. I could see that she had about 10? of hyperextension under deep anesthesia. Limb was exsanguinated tourniquet elevated to 250 mmHg. She had some bleeding through early on so we increased this to 300 mmHg. A 7 in longitudinal midline incision was used and a vastus medialis splitting approach utilized splitting the vastus medialis at the level of the superior pole of patella. Infrapatellar fat pad partially excised. Quadriceps synovectomy carried out. Small osteophytes were removed from the patella. There was some inferomedial chondromalacia but minor cartilage loss overall and I felt that non resurfacing was the best option for her. A conservative lateral facetectomy was performed. A guide [place] was inserted on femoral canal after aspiration of canal contents using the 5 degree valgus cutting bushing, set at 8 mm distal femoral resection which removed two less from the lateral side. Next the tibial plateau was cut. We made a skim cut off the low point of the medial tibial plateau. Cut was made perpendicular to the axis of the tibia. Meniscal remnants were excised and the PCL was recessed but we did not release the posterior capsule because of her hyperextension. Flexion gap measured a tight 8 medially and a tight 10 laterally. The femoral sizing guide was set at 3? of external rotation and posterior referencing pinholes were placed. The size 62.5 cutting block was applied which gave the appropriate size relative to the anterior cortex and AP and chamfer cuts were made. The size 62 fit properly. The 67 tibial trial with 10 CR trial insert could not be inserted in flexion. I could inserted in extension and then flexed the knee up and we were too tight medially and laterally therefore an additional 2 mm of bone removed from the tibial plateau. The tibial plateau was then sized to a 67 which fit line to line posterolateral to anteromedial at proper rotation. This was punched and we trialed with the 11 insert which had 2 mm of play laterally but no play medially at 90?. In extension there was about 10? of hyperextension with 1-2 mm of medial and 1 lateral opening in full extension. I carefully resected additional 1 mm of bone off the medial tibial plateau by re-applying the tibial cutting guide at 1-2 degrees of varus relative to the initial cut and this cut was made transitioning to the lateral side and we reapplied the 67 trial verified the cut was perfectly flat and repeat drilled and punched and on read trialing with the 11 , we now had 1 mm of medial opening at 90? and 2 lateral and about 2 or 3 mm of anterior drawer so this was appropriate. However we still had hyperextension. Therefore I elected to make 1.5 mm shims from the chamfer cuts and placed these on the distal femur and reapplied the femoral trial with the 11 insert and with this there was no medial opening and 1 mm of lateral opening at 0? and with gravity the knee hyperextended about 3? and I thought this was optimal. We trialed
[2024-03-26] MEDS: ONDANSETRON INJ 4 MG/2 ML VIAL IV PUSH (11:58)
--- NOTE | 2024-03-26 12:20 | ADMGEN ---
This patient, Rebecca Pantoja, was admitted to 2 Medical Room 253-01. Patient/family oriented to hospital policies and general routines including ID bracelet, bed and alarms, visiting hours, pain management, procedures, bathroom and other care routines, personal items, smoking policy, room service/diet, and visiting hours. Information on how to activate the Rapid Response Team has been discussed. Patient/Family are encouraged to report perceived risks to care and to ask questions if they do not understand what they are told or what they should do.
[2024-03-26] MEDS: SODIUM CHLORIDE 0.9% IV 1,000 ML 125 ML IV CONT (12:43)
[2024-03-26] MEDS: oxyCODONE HCL (*CRX) 5 MG TAB IR PO ×4 (12:53→20:41)
[2024-03-26] MEDS: ACETAMINOPHEN 500 MG TABLET PO ×2 (13:24→18:06)
[2024-03-26] MEDS: SENNA/DOCUSATE SODIUM TABLET 2 TAB PO (16:19)
[2024-03-26] MEDS: FAMOTIDINE 20 MG TABLET PO (20:41)
[2024-03-27] MEDS: ceFAZolin 2 GM/D5W 50 ML 2 GM/50 ML BAG IVPB ×2 (00:06→08:42)
[2024-03-27] MEDS: ACETAMINOPHEN 500 MG TABLET PO ×2 (00:06→06:24)
[2024-03-27] MEDS: oxyCODONE HCL (*CRX) 5 MG TAB IR PO ×4 (00:07→08:42)
[2024-03-27 00:26] VITALS: BP 108/60; PULSE 76; RESP 18; TEMP 36.6; O2SAT 98
[2024-03-27 04:00] VITALS: BP 101/51; PULSE 68; RESP 16; TEMP 36.6; O2SAT 100
[2024-03-27 04:49] LABS: Basophils Absolute Auto 0.1 K/mm3 (0.0-0.1); Basophils Percent Auto 0.5 % (0.2-1.2); Eosinophils Percent Auto 0.1 % (0-4.4); Hematocrit 35.6 % (37.0-47.0); Immature Granulocyte Absolute 0.06 K/mm3 (0.00-0.031); Immature Granulocyte Percent A 0.4 % (0-0.5); Lymphocytes Percent Auto 14.4 % (18.3-44.2); Mean Corpuscular HGB Conc 30.9 g/dl (32-36); Mean Corpuscular Hemoglobin 27.8 pg (26-34); Mean Corpuscular Volume 89.9 fl (80-100); Mean Platelet Volume 11.3 fl (7.4-10.4); Monocytes Absolute Auto 1.7 K/mm3 (0.1-0.6); Monocytes Percent Auto 11.3 % (2.6-8.5); Neutrophils Absolute Auto 10.7 K/mm3 (1.3-6.7); Neutrophils Percent Auto 73.3 % (45.5-73.1); Platelet Count Result 216 k/mm3 (150-375); Red Blood Count 3.96 M/mm3 (4.2-5.4); Red Cell Distribution Width 12.9 % (11.5-14.5); White Blood Count 14.6 K/mm3 (4.5-10.0)
[2024-03-27 05:00] LABS: Anion Gap 5 mmol/L (4-12); Blood Urea Nitrogen 18 mg/dL (7-17); Calcium 8.4 mg/dL (8.4-10.2); Carbon Dioxide 27 mmol/L (22-30); Chloride 108 mmol/L (98-107); Estimated CRCL calculation 70 ml/min; Estimated Glomerular Filt Rate > 60; Glucose 99 mg/dL (65-110); Sodium 140 mmol/L (137-145)
--- NOTE | 2024-03-27 07:29 | PM.PNORT ---
Subjective Subjective Date/Time Seen: 03/27/24 07:29 Interval history: Patient is alert. Pain is well controlled. She was up walking yesterday with physical therapy and is comfortable. She had a little bit increased pain overnight with a soft tissue block wore off but at this point she is comfortable. Dressing is intact. Neurovascularly she is intact. Minimal swelling in the knee. Patient will see Physical therapy this morning and if she is comfortable should be discharged home if she wishes to this today for a 2nd therapy session she will do so and then leave this afternoon. Objective Data Vital Signs Vital Signs: Vital Signs - 24 hr 03/26/24 11:04 03/26/24 11:15 03/26/24 11:30 Temperature 97.2 F L Pulse Rate 86 75 85 Respiratory Rate 12 12 14 Blood Pressure 104/75 114/65 118/63 Pulse Oximetry 98 98 94 Oxygen Delivery Simple Face Mask Simple Face Mask Room Air Oxygen Flow Rate 8 8 03/26/24 11:45 03/26/24 12:00 03/26/24 12:10 Temperature Pulse Rate 84 82 78 Respiratory Rate 16 12 14 Blood Pressure 116/68 125/73 120/70 Pulse Oximetry 94 94 94 Oxygen Delivery Room Air Room Air Room Air Oxygen Flow Rate 03/26/24 12:20 03/26/24 12:20 03/26/24 12:35 Temperature 98.0 F 98.0 F Pulse Rate 71 69 Respiratory Rate 16 16 16 Blood Pressure 125/66 115/63 Pulse Oximetry 100 100 98 Oxygen Delivery Room Air Oxygen Flow Rate 03/26/24 13:05 03/26/24 13:55 03/26/24 14:05 Temperature 98.4 F 98.7 F Pulse Rate 73 74 Respiratory Rate 16 16 Blood Pressure 122/65 120/64 Pulse Oximetry 99 97 Oxygen Delivery Room Air Oxygen Flow Rate 03/26/24 18:41 03/26/24 21:08 03/27/24 00:26 Temperature 98.5 F 99.4 F 98 F Pulse Rate 73 78 76 Respiratory Rate 16 18 18 Blood Pressure 115/61 113/51 L 108/60 Pulse Oximetry 98 97 98 Oxygen Delivery Oxygen Flow Rate 03/27/24 04:00 Temperature 97.9 F Pulse Rate 68 Respiratory Rate 16 Blood Pressure 101/51 L Pulse Oximetry 100 Oxygen Delivery Oxygen Flow Rate Intake/Output Intake/Output: Intake & Output 03/24/24 03/25/24 03/26/24 03/27/24 23:59 23:59 23:59 23:59 Intake Total 2070 350 Balance 2070 350 Meds/Results Medications: Active Medications Generic Name Dose Route Start Last Admin Trade Name Freq PRN Reason Stop Dose Admin Acetaminophen 500 mg 03/26/24 12:13 03/27/24 06:24 Acetaminophen 500 Mg Tablet PO 500 mg Q6H ISADORA Administration Apixaban 2.5 mg 03/27/24 09:00 Apixaban 2.5 Mg Tablet PO 04/07/24 21:01 Q12HR ISADORA Cefdinir 300 mg 03/27/24 09:00 Cefdinir 300 Mg Capsule PO Q12HR ISADORA Diphenhydramine HCl 25 mg 03/26/24 12:13 Diphenhydramine Hcl Inj 50 Mg/Ml Vial IV PUSH Q6H PRN Itching Famotidine 20 mg 03/26/24 21:00 03/26/24 20:41 Famotidine 20 Mg Tablet PO 20 mg Q12HR [facility] Administration Cefazolin Sodium 2 gm in 50 mls @ 100 mls/hr 03/26/24 16:00 03/27/24 00:35 Ancef 2 Gm/D5w 50 Ml IVPB 03/27/24 08:29 Infused Q8H [facility] Infusion Meloxicam 7.5 mg 03/27/24 08:00 Meloxicam 7.5 Mg Tablet PO DAILY@0800 [facility] Morphine Sulfate 2 mg 03/26/24 12:13 Morphine Sulfate (*Crx) 2 Mg/Ml Inj IV PUSH Q2H PRN Breakthrough Pain Rated 4-6 or NPO Naloxone HCl 0.1 mg 03/26/24 12:13 Naloxone Hcl 0.4 Mg/Ml Vial IV PUSH Q2M PRN Opiate Reversal Ondansetron HCl 4 mg 03/26/24 12:13 Ondansetron Inj 4 Mg/2 Ml Vial IV PUSH Q4H PRN Nausea And Vomiting Oxycodone HCl 5 mg 03/26/24 12:13 03/27/24 04:46 Oxycodone Hcl (*Crx) 5 Mg Tab Ir PO 5 mg Q4H ISADORA Administration Oxycodone HCl 5 mg 03/26/24 12:13 03/27/24 06:50 Oxycodone Hcl (*Crx) 5 Mg Tab Ir PO 5 mg Q4H PRN Administration Pain Rated 7-10 Polyethylene Glycol 17 gm 03/27/24 09:00 Polyethylene Glycol 3350 17 Gm Powd.Pack PO QAM ISADORA Senna/Docusate Sodium 2 tab 03/26/24 17:00 03/26/24 16:19 Senna/Docusate Sodium Tabl
--- NOTE | 2024-03-27 07:32 | PM.DS ---
DS: Admitting Diagnosis Discharge Date 03/27 Admitting Diagnosis Left knee DJD DS: Discharge Diagnosis Discharge Diagnosis (1) Primary localized osteoarthritis of both knees: Code(s): M17.0 - Bilateral primary osteoarthritis of knee Status: Acute DS: Summary Hospital Course Hospital Course: 49-year-old female who underwent left total knee arthroplasty as well as cortisone injection in the right knee on 03/26. Underwent the procedure without complications. Postoperatively she has been afebrile vital signs are stable. She was up walking with physical therapy the day of surgery. Pain is well controlled with scheduled Tylenol every 6 hours as well as oxycodone 5 mg. She is on meloxicam 7.5 mg daily as well. She is on Eliquis for DVT prophylaxis. She is weight-bearing as tolerated. She is going to be discharged home on 03/27. She was advised to keep the leg elevated home prevent swelling but do her exercises on hourly basis. She has outpatient therapy starting next Saturday. She will go home with a 1 week course of Omnicef. She also go home with Senokot MiraLax. Patient was advised any questions or concerns she is to call the office otherwise we will see her at her appointments. Labs on the morning of postop day 1 were all stable. Time Spent with Patient Time attestation: Total time spent providing and/or coordinating discharge services: DS: Data Data Completed and Pending Labs on day of discharge: Labs from last 24 hours 03/27/24 04:26 WBC 14.6 H RBC 3.96 L Hgb 11.0 L Hct 35.6 L MCV 89.9 MCH 27.8 MCHC 30.9 L RDW 12.9 Plt Count 216 MPV 11.3 H Immature Gran % (Auto) 0.4 Neut % (Auto) 73.3 H Lymph % (Auto) 14.4 L [place] % (Auto) 11.3 H Eos % (Auto) 0.1 Baso % (Auto) 0.5 Lymph # (Auto) 2.10 [place] # (Auto) 1.7 H Eos # (Auto) 0.0 Baso # (Auto) 0.1 Abs Immat Gran (auto) 0.06 H Absolute Neuts (auto) 10.7 H Absolute Nucleated RBC 0.000 Nucleated RBC % 0.0 Sodium 140 Potassium 4.0 Chloride 108 H Carbon Dioxide 27 Anion Gap 5 BUN 18 H Creatinine 0.90 Estim Creat Clear Calc 70 Estimated GFR > 60 Glucose 99 Calcium 8.4 Discharge Plan Discharge Patient Disposition: Home, Self-Care Discharge Instructions: [place] SNYDER M[facility]D [facility] [address] [address] [address] [place] [address] POST-OPERATIVE DISCHARGE INSTRUCTIONS TOTAL KNEE ARTHROPLASTY 1. When resting, do not rest in the chair.When resting, lie on your back, with back flat on the couch or bed, with leg elevated above heart to minimize swelling. You may put a pillow under your head. . Significant swelling could indicate a blood clot and if this occurs call the office (or go to the ER) to have a venous ultrasound. Therefore, do not rest in a chair. 2. At least five times a day spend several minutes stretching your knee into flexion while sitting in the chair and also stretching your knee out straight The abilities to bend your knee fully and straighten your knee fully are two most important knee functions to focus on during your recovery. 3. It is ok to sit in chair to eat, use the toilet and receive a guest and to do your stretching exercises, but, sitting in a chair will cause your leg to swell. Therefore, avoid additional time sitting in the chair. and don't rest in the chair. 4. Wound Care: Nursing will give you an additional Mepilex dressing at the time of discharge. Patient to remove the dressing and apply a new Mepilex dressing at home 7 days after surgery and leave the dressing on until seen in office. It is normal to see a small amount of blood on the silver pad of the Mepilex dressing. Its designed to hold small spots of blood. However, if the blood reaches the edge of the pad up to the boarder of the clear membrane that surrounds the pad, the pad is saturated and the Mepilex dressing should be removed and a new Mepilex dressing should be applied. 5.
[2024-03-27 08:00] VITALS: BP 104/58; PULSE 64; RESP 16; TEMP 36.6; O2SAT 100
[2024-03-27] MEDS: APIXABAN 2.5 MG TABLET PO (08:42)
[2024-03-27] MEDS: CEFDINIR 300 MG CAPSULE PO (08:42)
[2024-03-27] MEDS: MELOXICAM 7.5 MG TABLET PO (08:42)
[2024-03-27] MEDS: VENLAFAXINE HCL XR 75 MG CAP.ER.24H PO (08:43)
[2024-03-27] MEDS: FAMOTIDINE 20 MG TABLET PO (08:43)
[2024-03-27] MEDS: polyethylene glycoL 3350 17 GM POWD.PACK PO (08:43)
[2024-03-27] MEDS: SENNA/DOCUSATE SODIUM TABLET 2 TAB PO (08:43)
--- NOTE | 2024-03-27 09:45 | P.PNAN_ITS ---
Anes - Prog Note Post-Op Date/Time: 03/27/24 09:45 Cardiovascular status: normal Respiratory status: normal Airway patency: baseline Mental status: baseline Post-Op hydration status: normal Vital Signs: Last Vital Signs Temp 36.6 C 03/27/24 08:00 Pulse 64 03/27/24 08:00 Resp 16 03/27/24 08:00 BP 104/58 L 03/27/24 08:00 Pulse Ox 100 03/27/24 08:00 O2 Del Method Room Air 03/26/24 13:55 O2 Flow Rate 8 03/26/24 11:15 Pain Score (VAS): 310 I/O: Intake & Output 03/26/24 03/27/24 03/27/24 23:59 07:59 15:59 Intake Total 990 350 240 Balance 990 350 240 Laboratory Tests 03/27/24 04:26 03/27/24 04:26 03/27/24 04:26 WBC 14.6 H RBC 3.96 L Hgb 11.0 L Hct 35.6 L MCV 89.9 MCH 27.8 MCHC 30.9 L RDW 12.9 Plt Count 216 MPV 11.3 H Immature Gran % (Auto) 0.4 Neut % (Auto) 73.3 H Lymph % (Auto) 14.4 L [place] % (Auto) 11.3 H Eos % (Auto) 0.1 Baso % (Auto) 0.5 Lymph # (Auto) 2.10 [place] # (Auto) 1.7 H Eos # (Auto) 0.0 Baso # (Auto) 0.1 Abs Immat Gran (auto) 0.06 H Absolute Neuts (auto) 10.7 H Absolute Nucleated RBC 0.000 Nucleated RBC % 0.0 Sodium 140 Potassium 4.0 Chloride 108 H Carbon Dioxide 27 Anion Gap 5 BUN 18 H Creatinine 0.90 Estim Creat Clear Calc 70 Estimated GFR > 60 Glucose 99 Calcium 8.4 Post-procedural complaints: none Patient Feedback: Patient satisfied with anesthetic care.
== END 2024-03-27 11:47 | disposition home or self-care (01) ==
LOC: ANHSURGERY 05:50 → ANH2MED 12:14
PROVIDERS: Physician Assistant Surgical; PCP Family Medicine; Visit Provider Orthopaedic Surgery
PROC: (CPT 27447; principal; 2024-03-26 07:30)
DX: M17.0 Bilateral primary osteoarthritis of knee (principal); Z79.85 Long-term (current) use of injectable non-insulin antidiabetic drugs; Z87.891 Personal history of nicotine dependence; F12.90 Cannabis use, unspecified, uncomplicated
CPT/HCPCS: 27447; 20610; 36415; 73560; 80048; 80307; 83036; 85025; 86850; 86900; 86901; 87081; 93005; 97110; 97161; 97165; 97530; 97535; A9270; C1713; C1776; J0171; J0330; J0690; J1010; J1100; J1170; J1200; J1885; J2250; J2270; J2405; J2704; J2795; J3010; J3370; J7030; J7120

== ENCOUNTER 2024-04-22 14:15 | Outpatient (RCR) | payer OTHER, SELFPAY ==
--- NOTE | 2024-03-30 10:44 | OPREHPOC ---
Outpatient Therapy Plan of Care This is a Multidisciplinary Plan of Care that may contain components documented by all disciplines (PT, OT, and ST.) PT Problem 1 PT Problem #1 Knowledge Deficit PT Goal 1 Goal *indep with HEP * correct use of assistive device Target Visit 8 PT Problem 2 PT Problem #2 Pain PT Goal 1 Goal 1* pain rating of 4/10 at worst 2* LE functional scale rating of 20% limitation in activity decrease edema over knee to decrease pain: circumferential measurements 3* proximal to patella 42 cm 4* mid patella 41 cm 5* inferior to patella 35 cm Target Visit 8 PT Problem 3 PT Problem #3 Impaired Range of Motion PT Goal 1 Goal increase L knee ROM to improve gait pattern and ability on stairs active in sittin* extension 0' 2* flexion 110' Target Visit 8 PT Problem 4 PT Problem #4 Impaired Functional Mobility PT Goal 1 Goal 1* 2 minute walking test distance of 450' 2* pt ambulate with cane and good gait pattern 3* up/down 12 steps with one hand railing and alternate step pattern Target Visit 8
--- NOTE | 2024-03-30 10:44 | PTOPEVAL1 ---
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 She reports doing well at home, is supportive. LE functional scale rating of 38% limitation in activity level. With the evaluation: active sitting knee ROM is (-15') to 95'/ in supine extension with quad set and stretch is (-10'); mat exercises 10-15 reps with L LE; 2 minute walking test distance of 375' and 5 reps sit/stand time is 15 seconds, which is normal; Skilled PT services are indicted for modalities to decrease pain and edema over L knee, therapeutic exercises to increase L LE strength and knee ROM with education for progression of HEP and gait device. Plan of Care Interventions Electrical Stimulation,Gait Training,Intermittent Compression pump,Manual Therapy,Neuro Re-education, Patient/Caregiver Education,Therapeutic Activities, Therapeutic Exercise,Other Other Interventions taping PT Services Indicated Yes Treatment Frequency and 2x/wk for 8 visits Duration These treatments will address the objective and functional deficits as defined above. The patient will be advanced safely and appropriately in order for the p
--- NOTE | 2024-04-22 14:54 | PTOPDC ---
Assessment and note entered by Bettina Gray, PT discharge report Assessment Status Discharge Diagnosis s/p L TKR Onset 03-26-24 Subjective Information knee is good; back to doing everything; saw dr and the incision is OK- was a suture working out; been doing exercises, riding bicycle; not using cane; going up/down stairs at home with laundry and not problems; plan to go back to work Saturday. Ready to be finished with therapy. Reported Pain Level Pain Score 1: Self Report Additional Pain Score Comments pain range in the past week- stays 1/10- skin tight, but not hurting Assessment PT Clinical Summary Smitha has received 8 PT sessions. Compared to the initial evaluation: pain from 3-8 to 10; self assessment LE functional scale self rating from 38% to 13% limitation in activity level; increase strength and ROM of L knee; 2 minute walking test distance from 275' with walker to 375' without device; education complete for HEP; continues to have slight edema over L knee; AROM L knee in sitting (-3') to 125' in sitting. The goals were achieved, except 2 of the 3 circumferential measurement of knee. Discharge PT. Continue to perform HEP. Plan of Care PT Services Indicated No
== END 2024-04-22 16:58 | disposition home or self-care (01) ==
LOC: ANHPT 14:15
PROVIDERS: PCP Family Medicine; Visit Provider Orthopaedic Surgery
DX: M17.12 Unilateral primary osteoarthritis, left knee (principal); Z96.652 Presence of left artificial knee joint
CPT/HCPCS: 97014; 97016; 97110; 97140; 97161; 97530; G0283

== ENCOUNTER 2024-05-27 13:43 | Outpatient (CLI) | payer OTHER, SELFPAY ==
--- NOTE | ~2024-05-27 | US_ITS ---
Duplex Sonography of the left extremity: Indication: Soft tissue disorder Findings: Sagittal and transverse B-mode images as well as color-flow imaging were performed on the l eft femoral and popliteal veins. B-mode examination was done without and with compression in the tra nsverse plane. There is good visualization of the common femoral, proximal profunda femoral, superfi cial femoral, greater saphenous, and popliteal veins. Normal flow was seen on color-flow imaging. No rmal compressibility was demonstrated. Visualized calf veins are also patent. Impression: No evidence of deep vein thrombosis involving the left lower extremity. Reviewed, dictated and finalized at location . Impression: No evidence of deep vein thrombosis involving the left lower extremity.
== END 2024-05-27 13:44 | disposition home or self-care (01) ==
LOC: ANHIMG 13:43
PROVIDERS: PCP Family Medicine; Visit Provider Orthopaedic Surgery
DX: M79.89 Other specified soft tissue disorders (principal)
CPT/HCPCS: 93971

== ENCOUNTER 2024-08-02 01:55 | Emergency (ER) | payer OTHER, SELFPAY ==
[2024-08-02 02:00] VITALS: BP 126/81; PULSE 80; RESP 18; TEMP 36.8; O2SAT 98
--- NOTE | 2024-08-02 02:30 | PC.NURSE ---
Pt noted to have 100cc yellowish emesis. new bag given
--- NOTE | 2024-08-02 04:00 | PC.NURSE ---
Emesis noted to be approx 200cc. New emesis bag given.
[2024-08-02 06:05] VITALS: BP 134/59; PULSE 74; RESP 18; O2SAT 97
[2024-08-02 06:18] LABS: Basophils Absolute Auto 0.1 K/mm3 (0.0-0.1); Basophils Percent Auto 0.5 % (0.2-1.2); Eosinophils Percent Auto 0.3 % (0-4.4); Hematocrit 43.5 % (37.0-47.0); Hemoglobin 14.2 g/dL (12.0-15.0); Immature Granulocyte Absolute 0.09 K/mm3 (0.00-0.031); Immature Granulocyte Percent A 0.7 % (0-0.5); Lymphocytes Absolute Auto 2.16 K/mm3 (0.9-3.2); Mean Corpuscular HGB Conc 32.6 g/dl (32-36); Mean Corpuscular Hemoglobin 28.5 pg (26-34); Mean Corpuscular Volume 87.2 fl (80-100); Mean Platelet Volume 10.9 fl (7.4-10.4); Monocytes Absolute Auto 0.7 K/mm3 (0.1-0.6); Monocytes Percent Auto 5.6 % (2.6-8.5); Neutrophils Percent Auto 74.9 % (45.5-73.1); Platelet Count Result 341 k/mm3 (150-375); Red Blood Count 4.99 M/mm3 (4.2-5.4); Red Cell Distribution Width 13.5 % (11.5-14.5)
[2024-08-02] MEDS: ONDANSETRON INJ 4 MG/2 ML VIAL IV PUSH (06:18)
[2024-08-02] MEDS: SODIUM CHLORIDE 0.9% IV 1,000 ML 999 ML IV CONT ×2 (06:19→10:04)
[2024-08-02 06:31] LABS: Alanine Aminotransferase 12 U/L (6-35); Albumin Level 5.1 g/dL (3.5-5.1); Alkaline Phosphatase 81 U/L (38-126); Anion Gap 10 mmol/L (4-12); Aspartate Amino Transferase 24 U/L (14-36); Bilirubin,Total 0.9 mg/dL (0.2-1.3); Blood Urea Nitrogen 15 mg/dL (7-17); Calcium 10.1 mg/dL (8.4-10.2); Carbon Dioxide 29 mmol/L (22-30); Chloride 103 mmol/L (98-107); Estimated Glomerular Filt Rate > 60; Glucose 114 mg/dL (65-110); Lipase 95 U/L (23-300); Potassium 3.9 mmol/L (3.4-5.0); Sodium 142 mmol/L (137-145)
--- NOTE | 2024-08-02 07:15 | ED.GENADULT ---
HPI - General Adult General Chief complaint: Nausea/Vomiting/Diarrhea Stated complaint: vomiting Time Seen by Provider: 08/02/24 06:55 History of Present Illness HPI narrative: 49-year-old female presented to the emergency department for evaluation for an overdose on semaglutide. Patient just started the medication Saturday. Patient states her 1st dose was supposed to be 8 mg and she tach 80 mg p.o. patient then began developing nausea and vomiting afterwards. Patient denies any associated abdominal pain. Patient has no prior history abdominal surgeries. Related Data Home Medications Medication Instructions Recorded Confirmed multivitamin 1 tablet PO DAILY 07/16/24 Allergies Allergy/AdvReac Type Severity Reaction Status Date / Time Penicillins Allergy Intermediate Hives Verified 08/02/24 06:20 vancomycin Allergy Hives Verified 08/02/24 06:20 Review of Systems Review of Systems: All systems reviewed & are unremarkable except as noted in HPI and below PMFSH Past Medical History Medical History Colon cancer screening Intermittent palpitations Patellofemoral syndrome, right Perimenopausal menorrhagia Surgical History Surgical History History of arthroscopy of left knee History of breast biopsy History of cholecystectomy History of left knee replacement 03/26/24 History of lumpectomy S/P ALOK-BSO 07.14.23 complex hyperplasia of endometrium with atypia Family History Family History Mother Family history of thyroid disease Depression Family history of malignant neoplasm of ovary Family history of malignant neoplasm of cervix Family history of malignant neoplasm of thyroid Father Diabetes mellitus Family history of arthritis Family history of diabetes mellitus in first degree relative Grandparent Family history of coronary artery disease Sibling No problems noted. Other Family history of Alzheimer's disease Family history of cardiovascular disease Family history of congestive heart failure Social History Social History Smoking packs per day: 1.5 Smoking cigarettes per day: 30.0 Years smoked: 20 Smoking pack-years: 30.00 Smoking status: Former smoker Second hand tobacco smoke exposure: No Additional smoking assessment comments: DENIES ANY FORM OF TOBACCO USE Alcohol intake: current Drinks per week: 1 Alcohol use details: ONE DRINK PER MONTH Substance use: current Substance use type: marijuana Other substance usage details: TAKE A GUMMY AT NIGHT TO SLEEP Last use: JANUARY 20 2024 Do You Feel Safe in your Home?: Yes Lack of Transportation: No Lack of Food: Never True Current Housing: I Have Housing Concerned About Future Housing: No Difficulty Paying Gas/Electric Bills: No Difficulty Paying for Meds: No Currently Unemployed: No Education: Trade/Vocational Certificate Difficulty w/ Childcare or Family Care: No Living arrangements: with family Occupation/Education: occupation Additional occupation/education comments: [employer] Spiritual care concerns: No Exam Narrative: APPEARANCE: Well appearing, no pain, no distress, well-nourished. HEAD: normocephalic, atraumatic. EYES: PERRLA/EOMI, conjunctivae clear. NOSE: Normal no drainage EARS:TMS clear with good light reflex. THROAT: Pharynx clear, no exudate. NECK: Supple. No adenopathy, no masses. RESPIRATORY: Airway patent, respirations nonlabored. Clear to auscultation bilaterally, no rales, rhonchi, wheezing. CARDIOVASCULAR: Regular rate and rhythm without murmurs rubs or gallops. ABDOMINAL: Soft, nontender, nondistended, normal bowel sounds MUSCULOSKELETAL: Moves all extremities. Strength/ROM intact, No edema, No calf tenderness. NEUR
[2024-08-02 07:18] LABS: Add Urine Microscopic? YES; Appearance Urine Cloudy (Clear); Bacteria Urine 4+ /hpf; Bilirubin Urine Negative (Negative); Blood Urine Negative (Negative); Color Urine Yellow (Yellow); Glucose Urine UA Negative (Negative); Ketones Urine Negative (Negative); Leukocyte Esterase Ur 1+ LEU/UL (Negative); Need Manual Microscopic Reviewed; Nitrate Urine Negative (Negative); Non Pathogenic Casts 0-2; Protein Urine Trace mg/dL (Negative); RBC Urine 0-2 /hpf (0-2); Specific Grav Ur 1.026 (1.001-1.035); Squamous Epithelial Cell Urine Moderate /hpf (Few); Urobilinogen Urine 0.2 mg/dL (<2.0); WBC Urine 21-50 /hpf (0-3)
--- NOTE | 2024-08-02 07:24 | PC.NURSE ---
RN spoke with poison control regarding pt. Poison control stated that care should be centered around supportive care including IV fluids and antiemetics.
[2024-08-02 07:26] LABS: BEDSIDEPREGUCG Negative (Negative)
[2024-08-02 07:55] VITALS: BP 114/72; PULSE 71; RESP 16; O2SAT 98
[2024-08-02] MEDS: diphenhydrAMINE HCl INJ 50 MG/ML VIAL 25 MG IV PUSH (10:04)
[2024-08-02] MEDS: KETOROLAC 15 MG/ML VIAL (*BKC) IV PUSH (10:06)
[2024-08-02] MEDS: PROCHLORPERAZINE EDISYLATE 10 MG/2 ML VIAL IV PUSH (10:07)
[2024-08-02 10:10] VITALS: BP 115/71; PULSE 70; RESP 14; O2SAT 100
[2024-08-02 10:41] LABS: Pregnancy On Board Control Positive; Urine Pregnancy Test Negative
--- NOTE | 2024-08-02 11:17 | PC.NURSE ---
Bedside report given to Huma BRIGHT, all questions answered
== END 2024-08-02 12:00 | disposition home or self-care (01) ==
PROVIDERS: Student in an Organized Health Care Education/Training Program; Emergency Provider Emergency Medicine; PCP Family Medicine
DX: T38.3X1A Poisoning by insulin and oral hypoglycemic [antidiabetic] drugs, accidental (unintentional), initial encounter (principal); Z96.652 Presence of left artificial knee joint; Z87.891 Personal history of nicotine dependence; Z90.49 Acquired absence of other specified parts of digestive tract; Z90.710 Acquired absence of both cervix and uterus; Z90.79 Acquired absence of other genital organ(s); Z90.722 Acquired absence of ovaries, bilateral
CPT/HCPCS: 36415; 80053; 81001; 81025; 83690; 85025; 87086; 96361; 96374; 99283; 99284; J0780; J1200; J1885; J2405; J7030

== ENCOUNTER 2024-10-06 11:54 | Outpatient (CLI) | payer OTHER, SELFPAY ==
[2024-10-06 12:59] LABS: Basophils Absolute Auto 0.1 K/mm3 (0.0-0.1); Basophils Percent Auto 0.9 % (0.2-1.2); Eosinophils Absolute Auto 0.2 K/mm3 (0-0.3); Eosinophils Percent Auto 2.3 % (0-4.4); Hematocrit 41.4 % (37.0-47.0); Hemoglobin 13.3 g/dL (12.0-15.0); Immature Granulocyte Absolute 0.04 K/mm3 (0.00-0.031); Immature Granulocyte Percent A 0.5 % (0-0.5); Lymphocytes Absolute Auto 3.35 K/mm3 (0.9-3.2); Lymphocytes Percent Auto 39.1 % (18.3-44.2); Mean Corpuscular HGB Conc 32.1 g/dl (32-36); Mean Corpuscular Hemoglobin 27.8 pg (26-34); Mean Corpuscular Volume 86.6 fl (80-100); Mean Platelet Volume 10.4 fl (7.4-10.4); Monocytes Absolute Auto 0.6 K/mm3 (0.1-0.6); Monocytes Percent Auto 6.7 % (2.6-8.5); Neutrophils Absolute Auto 4.3 K/mm3 (1.3-6.7); Neutrophils Percent Auto 50.5 % (45.5-73.1); Platelet Count Result 267 k/mm3 (150-375); Red Blood Count 4.78 M/mm3 (4.2-5.4); Red Cell Distribution Width 12.7 % (11.5-14.5); White Blood Count 8.6 K/mm3 (4.5-10.0)
[2024-10-06 13:11] LABS: Albumin Level 4.5 g/dL (3.5-5.1); Anion Gap 5 mmol/L (4-12); Blood Urea Nitrogen 21 mg/dL (7-17); Calcium 9.3 mg/dL (8.4-10.2); Carbon Dioxide 29 mmol/L (22-30); Chloride 105 mmol/L (98-107); Estimated Glomerular Filt Rate 58; Glucose 127 mg/dL (65-110); Potassium 3.7 mmol/L (3.4-5.0); Sodium 139 mmol/L (137-145)
[2024-10-06 13:15] LABS: Hemoglobin A1C 5.4 % (<5.7); Urine Cotinine NEGATIVE
== END 2024-10-06 11:55 | disposition home or self-care (01) ==
LOC: ANHSURGERY 11:59
PROVIDERS: PCP Family Medicine; Visit Provider Orthopaedic Surgery
DX: M17.11 Unilateral primary osteoarthritis, right knee (principal); Z01.818 Encounter for other preprocedural examination
CPT/HCPCS: 80048; 80307; 82040; 83036; 85025; 86850; 86900; 86901; 87081

== ENCOUNTER 2024-10-22 01:42 | Day surgery (SDC) | payer OTHER, SELFPAY ==
[2024-10-06 12:06] VITALS: BP 136/73; PULSE 79; RESP 16; TEMP 36.9; O2SAT 100; BMI 36.2
--- NOTE | 2024-10-06 12:21 | PC.NURSE ---
Report to the Outpatient Waiting Room, entrance under the green pavilion located off [facility], at time _06:00am on date ____10/22/2024___. Planned Procedure Time: __07:30am .? Time changes happen often and if your time is changed the preop area will call you the afternoon before. - You and your visitor will be asked to self-screen and do not enter if you have any COVID symptoms. Please call surgeon if you need to reschedule. - A mask is optional within the hospital at this time. Patients may have clear liquids (water, carbonated beverages, clear teas, apple juice) until 3 hours prior to surgery with a maximum of 20 ounces. - No food from midnight until time of surgery and no smoking. This includes no chewing gum, candy or mints.([id number]) - Take only the following medications with a SIP of water on the morning of surgery: __Venlafaxine & Tylenol if needed DO NOT STOP ANY OF YOUR OTHER PRESCRIPTION MEDICATIONS PRIOR TO SURGERY EXCEPT THE FOLLOWING Medications to discontinue per physician Hold all vitamins and supplements for 3 days prior per Anesthesia. Date to take last dose 10/18/24 Hold all ibuprofen and NSAIDS per Dr Olivares for 7 days prior , last dose to take is 10/14/24. Please no make-up, nail yakut, hairspray, perfume, deodorant, or body powder the day of surgery.? No jewelry (including any body piercings) or valuables the day of surgery, leave them at home.? Please take a shower or bath the night before, or the morning of, surgery with an antibacterial soap.?Hibicleanse scrub per Dr Olivares. Wear comfortable, loose fitting clothing.? - Jewelry must be removed prior to entering the operating room.? Rings and piercings that are not removed may be cut off. - The hospital will not accept responsibility for valuables.? - Please leave all valuables, including medications, at home the day of surgery. If you are going home after surgery, a licensed lumber driver must drive you home.? - NO public transportation without another adult if you receive anesthesia. - We recommend that an adult stay with you for 24 hours following discharge. - We also recommend that you do not drive, make important decision, drink alcoholic beverages, or take any drugs that were not prescribed by your health care provider for at least 24 hours after your discharge time. Follow any additional instructions given to you from your surgeon. Telephone instructions given to _Patient and asked if any additional questions and then verbalized understanding. Patient advised to call surgeon office or pre surgery nurse liaison [phone] if any additional questions.
--- NOTE | 2024-10-19 07:37 | P.HP_ITS ---
H&P: HPI History of Present Illness Date/Time: 10/19/24 07:37 Chief Complaint: Right knee DJD Narrative: 49-year-old female presents today for a right total knee arthroplasty. She underwent left total knee arthroplasty in March of 2024. She had an uneventful recovery. She is happy with her results with her left knee. She has severe medial compartment osteoarthritis in the right knee that continues to be sym ptomatic. She limits any anti-inflammatories due to her history bariatric surgery. At this point patient feels she is having significant symptoms on a regular basis and is ready to proceed with total knee arthroplasty on the right. Last cortisone injection was approximately 4 months ago Review of Systems Review of Systems: All systems reviewed & are unremarkable except as noted in HPI and below PMFSH Past Medical History Medical History (Updated 10/06/24 @ 07:53 by Kathi Shin RN) Colon cancer screening Intermittent palpitations Patellofemoral syndrome, right Perimenopausal menorrhagia Surgical History Surgical History History of left knee replacement 03/26/24 History of arthroscopy of left knee History of lumpectomy History of breast biopsy History of cholecystectomy S/P ALOK-BSO 9.24.23 complex hyperplasia of endometrium with atypia Family History Family History Mother Family history of thyroid disease Depression Family history of malignant neoplasm of ovary Family history of malignant neoplasm of cervix Family history of malignant neoplasm of thyroid Father Diabetes mellitus Family history of arthritis Family history of diabetes mellitus in first degree relative Grandparent Family history of coronary artery disease Sibling No problems noted. Other Family history of Alzheimer's disease Family history of cardiovascular disease Family history of congestive heart failure Social History Social History (Updated 09/28/24 @ 13:34 by Vianey Lopez CMA) Smoking packs per day: 1.5 Smoking cigarettes per day: 30.0 Years smoked: 20 Smoking pack-years: 30.00 Smoking status: Former smoker Second hand tobacco smoke exposure: No Smoking end date: 10/21/14 Additional smoking assessment comments: DENIES ANY FORM OF TOBACCO USE Alcohol intake: current Drinks per week: 1 Alcohol use details: Beer a month Substance use: current Substance use type: marijuana Other substance usage details: gummies to help sleep occasionally Last use: JANUARY 20 2024 Current Housing: Decline to Answer Concerned About Future Housing: Decline to Answer Difficulty Paying Gas/Electric Bills: Decline to Answer Difficulty Paying for Meds: Decline to Answer Currently Unemployed: Decline to Answer Education: Decline to Answer Difficulty w/ Childcare or Family Care: Decline to Answer Living arrangements: with family Occupation/Education: occupation Additional occupation/education comments: [employer] Spiritual care concerns: No Meds Home Medications and Allergies Home Medications ?Medication ?Instructions ?Recorded ?Confirmed ?Type cholecalciferol (vitamin D3) 1,250 1,250 mcg PO .every 2 weeks #30 07/16/24 10/06/24 Rx mcg (50,000 unit) capsule caps ferrous gluconate 324 mg (38 mg 324 mg PO DAILY #90 tabs 07/16/24 10/06/24 Rx iron) tablet multivitamin 1 tablet PO DAILY 07/16/24 10/06/24 History venlafaxine 75 mg capsule,extended See Rx Instructions .Route 07/17/24 10/06/24 Rx release 24 hr .COMPLEX #90 caps ibuprofen 200 mg tablet (Advil) 400 mg PO ONCE PRN pain 10/06/24 10/06/24 History Allergies Allergy/AdvReac Type Severity Reaction Status Date / Time Penicillins Allergy Intermediate Hives Verified 10/06/24 12:03 vancomycin Allergy Hives Verified 10/06/24 12:03 Exam Narrative: 49-year-old female alert pleasant. She walks with a mild limp. She is 5 ft 4 and 214 lb BMI is 35.7. Right knee range of motion is from 3-135 degrees. Trace effusion. Mild medial pseudolaxity to valgus stress with good endpoint. Negative Keara's. Moderately severe tenderness over medial joint line to palpation. Full range of motion of right hip without discomfort, negative Stinchfield maneuver. Normal quad strength. 2+ dorsalis pedis and 1+ posterior tibial artery pulse. No edema in either lower extremity. Resp: Auscultation: clear to auscultation bilaterally Cardio: Rate: regular rate Rhythm: regular rhythm Assessment and Plan Assessment and plan (1) Primary osteoarthritis of right knee: Code(s): M17.11 - Unilateral primary osteoarthritis, right knee Status: Acute Plan 49-year-old female who has severe medial compartment osteoarthritis the right knee with significant symptoms on a daily basis. She did well with her left total knee arthroplasty in March. She is happy with the results and is ready proceed with the right knee. Surgical procedures well as the risks and complications were reviewed and all questions were answered. Patient's nasal swab was negative. Hemoglobin 13.3 and platelets were 267. Creatinine was 1.00 her GFR was 58.
[2024-10-22] VITALS (16 sets, daily range): BP systolic 96–146; BP diastolic 50–88; PULSE 70–88; RESP 12–18; TEMP 36.1–37.4; O2SAT 92–98; BMI 37.1
--- NOTE | ~2024-10-22 | XR_ITS ---
EXAMINATION: [id number] DATE: 10/22/2024 11:11 INDICATION: Postoperative evaluation following right total knee arthroplasty. TECHNIQUE: Anteroposterior and lateral views of the right knee were obtained. COMPARISON: None. FINDINGS: Right total knee arthroplasty with patellar resurfacing appears well seated and in near anatomic alig nment. No fractures identified. Expected postoperative subcutaneous and intra-articular gas. IMPRESSION: 1. Right total knee arthroplasty, negative for postoperative purposes. Reviewed, dictated and finalized at location B. 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
[2024-10-22] MEDS: ACETAMINOPHEN 500 MG TABLET 1000 MG PO (06:30)
[2024-10-22] MEDS: LACTATED RINGERS 1,000 ML 30 ML IV CONT ×2 (06:35→11:11)
[2024-10-22] MEDS: TRANEXAMIC ACID 1,000MG/ISO100 1,000 MG/100 ML BAG 200 MG IVPB (06:35)
--- NOTE | 2024-10-22 07:20 | WPDHPUPDATE1 ---
History and Physical Update Update Date/Time: 10/22/24 07:20 History and Physical has been reviewed, including an updated exam of the patient. There are NO changes in the patient's condition. Risks, benefits, and alternatives have been discussed and questions answered. Patient agrees to proceed with procedure.
--- NOTE | 2024-10-22 07:24 | P.PNAN_ITS ---
Anes - Initial Pre Proc Eval Procedure: Operation Date: 10/22/24 07:30 Proposed Procedures p Right Total Knee Arthroplasty - Raulito Norton MD Date/Time: 10/22/24 07:24 Surgeon: Raulito Norton MD Pre Op Diagnosis: O A Right Knee Patient Data Age: 49 Gender: F Height: 1.65 m Weight: 101.2 kg Last Vital Signs Temp 97.4 F L 10/22/24 06:06 Pulse 76 10/22/24 06:06 Resp 18 10/22/24 06:06 BP 131/78 10/22/24 06:06 Pulse Ox 95 10/22/24 06:06 O2 Del Method Room Air 10/22/24 06:06 Allergies Allergy/AdvReac Type Severity Reaction Status Date / Time Penicillins Allergy Intermediate Hives Verified 10/22/24 06:58 vancomycin Allergy Hives Verified 10/22/24 06:58 Home Medications ?Medication ?Instructions ?Recorded ?Confirmed ?Type cholecalciferol (vitamin D3) 1,250 1,250 mcg PO .every 2 weeks #30 07/16/24 10/22/24 Rx mcg (50,000 unit) capsule caps ferrous gluconate 324 mg (38 mg 324 mg PO DAILY #90 tabs 07/16/24 10/22/24 Rx iron) tablet multivitamin 1 tablet PO DAILY 07/16/24 10/22/24 History venlafaxine 75 mg capsule,extended See Rx Instructions .Route 07/17/24 10/22/24 Rx release 24 hr .COMPLEX #90 caps ibuprofen 200 mg tablet (Advil) 400 mg PO ONCE PRN pain 10/06/24 10/06/24 History Patient hx anesthesia problems: none Family hx anesthesia problems: none Results Review: All pre-operative results and documents have been reviewed as part of the pre- operative evaluation. [facility] Past Medical History Medical History (Updated 10/06/24 @ 07:53 by Kathi Shin RN) Colon cancer screening Intermittent palpitations Patellofemoral syndrome, right Perimenopausal menorrhagia Surgical History Surgical History History of left knee replacement 03/26/24 History of arthroscopy of left knee History of lumpectomy History of breast biopsy History of cholecystectomy S/P ALOK-BSO ..23 complex hyperplasia of endometrium with atypia Family History Family History Mother Family history of thyroid disease Depression Family history of malignant neoplasm of ovary Family history of malignant neoplasm of cervix Family history of malignant neoplasm of thyroid Father Diabetes mellitus Family history of arthritis Family history of diabetes mellitus in first degree relative Grandparent Family history of coronary artery disease Sibling No problems noted. Other Family history of Alzheimer's disease Family history of cardiovascular disease Family history of congestive heart failure Social History Social History (Updated 09/28/24 @ 13:34 by Vianey Lopez [facility]) Smoking packs per day: 1.5 Smoking cigarettes per day: 30.0 Years smoked: 20 Smoking pack-years: 30.00 Smoking status: Former smoker Second hand tobacco smoke exposure: No Smoking end date: 10/21/14 Additional smoking assessment comments: DENIES ANY FORM OF TOBACCO USE Alcohol intake: current Drinks per week: 1 Alcohol use details: Beer a month Substance use: current Substance use type: marijuana Other substance usage details: gummies to help sleep occasionally Last use: JANUARY 20 2024 Current Housing: Decline to Answer Concerned About Future Housing: Decline to Answer Difficulty Paying Gas/Electric Bills: Decline to Answer Difficulty Paying for Meds: Decline to Answer Currently Unemployed: Decline to Answer Education: Decline to Answer Difficulty w/ Childcare or Family Care: Decline to Answer Living arrangements: with family Occupation/Education: occupation Additional occupation/education comments: [employer] Spiritual care concerns: No Anes - Eval Final PreProcedure Day of Procedure 10/22/24 07:24 Patient weight: obese Heart: regular rate and rhythm Lungs: clear to auscultation Airway: Mallampati scale class II Neurological: alert and oriented Last oral intake: >/= 8 hours ASA classification: III Emergent: no Anesthetic plan: proceed Anesthesia type and monitoring: general ETT and standard monitoring Results Review: All pre-operative results and documents have been reviewed as part of the pre- operative evaluation. Informed Consent: The patient's anesthetic plan and its attendant risks and benefits were discuss ed with the patient/family/POA. Questions were solicited and answers provided to the satisfaction of the patient/family/POA.
[2024-10-22] MEDS: ceFAZolin 2 GM/D5W 50 ML 2 GM/50 ML BAG IVPB ×2 (07:32→18:12)
[2024-10-22] MEDS: ceFAZolin SODIUM 1 GM VIAL 3 GM (08:13)
[2024-10-22] MEDS: SODIUM CHLORIDE 0.9% IV 38.7 ML, MORPHINE SULFATE INJ (*CRX) 2 MG, ROPivacaine HCL 1% 2... INFILTRATE (08:13)
[2024-10-22] MEDS: GENTAMICIN BONE CEMENT REFOBACIN 1 EACH TOPICAL (09:56)
[2024-10-22] MEDS: ceFAZolin SODIUM 1 GM VIAL IV PUSH (10:19)
[2024-10-22] MEDS: TRANEXAMIC ACID 1,000 MG/10 ML AMPUL 1000 MG IV PUSH (10:21)
[2024-10-22] MEDS: KETOROLAC 15 MG/ML VIAL (*BKC) IV PUSH ×3 (10:22→23:24)
--- NOTE | 2024-10-22 11:07 | P.OP_ITS ---
Procedure Note - Detailed Date of Procedure 10/22/24 Pre-op Diagnosis O A Right Knee Post-op Diagnosis Same Procedure Performed Right total knee arthroplasty Surgeon Raulito Norton MD Utility Mechanic Supervisor Birdie Anesthesia General Description of Procedure Patient was brought to the operating room and general anesthesia was administered. She received 2 g of Ancef weight based vancomycin 1 g of TXA preoperatively. Initially after anesthesia induction and intubation the right knee had a positive bounce but after prep and drape there was no bounce under the deeper anesthesia Limb was exsanguinated tourniquet elevated to 300 mmHg. A 7 in longitudinal midline incision was used and a vastus medialis splitting approach utilized splitting the vastus medialis at the superior pole of patella. Partial excision of infrapatellar fat pad was performed and a quadriceps synovectomy carried out. The patella was arthritic with deforming osteophytes growing from the surface of the medial facet and I felt that resurfacing would be best for her. The patella measured 24 mm in thickness was cut to 16 mm. Bone quality was excellent. Protector cap was applied. The next a guide [place] was inserted down the femoral canal after aspiration of canal contents and using the 5 degree valgus cutting bushing 8 mm of bone removed the distal femur. We elected to be a little bit conservative as she had hyperextension propensity in the other knee. The next the tibial plateau was cut. We removed about 2 mm of bone from the low point of medial tibial plateau which removed 10 laterally. Alignment was confirmed. Meniscal remnants were excised PCL recessed. Flexion gap measured 8 mm medially and 12 mm laterally. Femoral sizing guide was applied set at 5? of external rotation which matched Whitesides line and posterior referencing pinholes were placed. If the the femur was cut to a size 62.5. We had ample play in flexion with the 10 CR trial insert at 90? with equal opening 2 mm on each side. The knee was excessively tight medially in extension. The knee lacked about 7? of extension. An additional mm of bone was removed the distal femur at this time and chamfer cuts revisited. He the it tibia was sized to a size 67 vanguard. The 71 was going to overhang at the proper rotation posterolateral knee. This was punched. We trialed with the 10 insert which seemed a little bit too loose at 90?. The 11 had appropriate AP stability and the 12 had no anterior-posterior play I was too tight. With the 11 insert the knee lacked about 3? of extension. No play medially. About 11/2 to 2 mm of play laterally. Osteophyte was removed from the medial tibial plateau at this time. The the removal was carried out posteromedially. Posterior femoral osteophyte was removed. We did not release posterior capsule. A on re trialing the knee had a barely positive bounce the with the 11 insert and still no plate and valgus stress medially in extension. Therefore an additional 1 mm bone was removed the distal femur. On trialing again with the 11 insert knee came out to full extension with negative bounce and about 0.5 mm of opening medially and 2 mm lateral. There was normal AP stability in flexion with a mm of medial and lateral opening each at 90?. There was full flexion to 135. The patella was sized to a size 34 and the lug holes drilled and with the 7.8 thick by 34 vanguard patella composite thickness was 24 mm. There was perfect patellar tracking throughout range of motion. We had lowered the tourniquet at approximately 85 minutes and this time the limb was re-exsanguinated tourniquet elevated to 300 mmHg. All the bony surfaces were prepped with the step drill for cement interdigitation as her bone quality was excellent. Lug holes were drilled the femoral component trial. Bony surfaces were thoroughly irrigated and dried. Using 2 batches of methylmethacr ylate 1 the gentamicin powder, the cement was applied to the Vanguard 67 tibial component in the 62.5 right CR femoral component. Cement was applied to the tibial and pressurized tibial component fully seated cement applied the femur the femoral component fully seated and the knee brought into full extension with a 12 mm 5 in 1 trial insert for pressurization and the 34 thin patella cemented. Tourniquet was released and total tourniquet time 105 minutes. Cement was allowed to harden after which excess cement was sought for removed and we trialed with the 11 insert which gave full extension with the same stability findings as above. The 12 as insert was trialed and was too tight both in flexion and extension with a positive bounce. The 11 insert was chosen placed and locked with a locking pin range of motion stability patellar tracking reconfirmed. Local anesthetic cocktail injected the periarticular soft tissues. Wound was thoroughly irrigated again with antibiotic solution arthrotomy closed with 2. Vicryl and 1. Unidirectional barbed Stratafix suture and the split in the quadriceps repair with 1. Vicryl. Skin was closed with 2 subcu Vicryl 3-0 subcuticular Monocryl and glue EBL was 250 cc. Two additional g of Ancef 1 g of TXA given time wound closure. There were no complications he was transferred postop recovery room in stable condition. [facility] Billing Surgery - Charge Forward: Surgery Billing (Right total knee arthroplasty)
--- NOTE | 2024-10-22 11:19 | PM.OP ---
Procedure Note - Brief Procedure Note - Brief Date of procedure: 10/22/24 O A Right Knee Procedure performed: Right total knee arthroplasty Surgeon: VERONIKA Morrow Findings: 49-year-old female who went right total knee arthroplasty on 10/22. I was involved in the procedure including positioning the patient on the OR table and 1st assisting through the time surgery. Total time spent was 3-1/2 hours
[2024-10-22] MEDS: fentaNYL CITRATE INJ (*CRX) 100 MCG/2 ML VIAL 25 MCG IV PUSH ×2 (12:01→13:02)
[2024-10-22] MEDS: ONDANSETRON INJ 4 MG/2 ML VIAL IV PUSH (12:46)
--- NOTE | 2024-10-22 13:15 | ADMGEN ---
This patient, Rebecca Pantoja, was admitted to [address] [place] [address] Room 325-01. Patient/family oriented to hospital policies and general routines including ID bracelet, bed and alarms, visiting hours, pain management, procedures, bathroom and other care routines, personal items, smoking policy, room service/diet, and visiting hours. Information on how to activate the Rapid Response Team has been discussed. Patient/Family are encouraged to report perceived risks to care and to ask questions if they do not understand what they are told or what they should do.
[2024-10-22] MEDS: oxyCODONE HCL (*CRX) 5 MG TAB IR PO ×3 (15:05→20:35)
[2024-10-22] MEDS: ACETAMINOPHEN 325 MG TABLET 650 MG PO ×3 (15:05→20:34)
[2024-10-22] MEDS: SENNA/DOCUSATE SODIUM TABLET 2 TAB PO (18:12)
[2024-10-22] MEDS: FAMOTIDINE 20 MG TABLET PO (20:35)
[2024-10-23] MEDS: oxyCODONE HCL (*CRX) 5 MG TAB IR PO ×3 (01:25→12:23)
[2024-10-23] MEDS: ACETAMINOPHEN 325 MG TABLET 650 MG PO ×4 (01:25→12:20)
[2024-10-23] MEDS: ceFAZolin 2 GM/D5W 50 ML 2 GM/50 ML BAG IVPB ×2 (01:31→09:15)
[2024-10-23 01:36] VITALS: BP 150/78
[2024-10-23 04:00] VITALS: BP 105/45; PULSE 90; RESP 18; TEMP 37; O2SAT 98
--- NOTE | 2024-10-23 06:56 | P.PNOP_ITS ---
Subjective Subjective Date/Time Seen: 10/23/24 06:56 Interval history: Postop day 1 patient is alert. She is afebrile vital signs stable. Labs are still pending. Patient was up yesterday walking with therapy and doing exercises and was very comfortable. Soft tissue block has worn off but pain is still well controlled. Small area of blood on the dressing. Neurovascularly she is intact. Patient was able do a straight leg raise in the bend and was actively bending her knee to 90? in the bed. Will plan have the patient work with Physical therapy this morning and if she is continuing to do very well she will be discharged home. If she feels she needs additional therapy she will stay and do a 2nd therapy session and then leave this afternoon. Objective Data Vital Signs Vital Signs: Vital Signs - 24 hr 10/22/24 11:11 10/22/24 11:25 10/22/24 11:40 Temperature 97.0 F L Pulse Rate 82 84 82 Respiratory Rate 15 12 12 Blood Pressure 124/66 130/68 137/77 Pulse Oximetry 95 97 98 Oxygen Delivery Simple Face Mask Simple Face Mask Simple Face Mask Oxygen Flow Rate 6 6 6 10/22/24 11:55 10/22/24 12:10 10/22/24 12:25 Temperature Pulse Rate 84 81 82 Respiratory Rate 12 12 14 Blood Pressure 145/78 H 146/76 H 145/88 H Pulse Oximetry 98 98 92 Oxygen Delivery Simple Face Mask Room Air Room Air Oxygen Flow Rate 6 10/22/24 12:40 10/22/24 12:55 10/22/24 13:10 Temperature 97.2 F L Pulse Rate 81 80 80 Respiratory Rate 16 16 14 Blood Pressure 133/58 L 108/68 112/70 Pulse Oximetry 93 94 93 Oxygen Delivery Room Air Room Air Room Air Oxygen Flow Rate 10/22/24 13:45 10/22/24 14:00 10/22/24 14:30 Temperature 97.3 F L 97.6 F 98.0 F Pulse Rate 83 85 87 Respiratory Rate 16 16 16 Blood Pressure 130/72 146/78 H 119/73 Pulse Oximetry 96 96 96 Oxygen Delivery Oxygen Flow Rate 10/22/24 15:18 10/22/24 15:30 10/22/24 20:00 Temperature 98.7 F 99.4 F Pulse Rate 86 88 Respiratory Rate 16 18 Blood Pressure 128/57 L 127/60 Pulse Oximetry 96 95 Oxygen Delivery Room Air Oxygen Flow Rate 10/22/24 20:00 10/22/24 23:44 10/23/24 01:36 Temperature 97.8 F Pulse Rate 70 Respiratory Rate 18 Blood Pressure 96/50 L 150/78 H Pulse Oximetry 97 Oxygen Delivery Room Air Oxygen Flow Rate 10/23/24 04:00 Temperature 98.6 F Pulse Rate 90 Respiratory Rate 18 Blood Pressure 105/45 L Pulse Oximetry 98 Oxygen Delivery Oxygen Flow Rate Intake/Output Intake/Output: Intake & Output 10/20/24 10/21/24 10/22/24 10/23/24 23:59 23:59 23:59 23:59 Intake Total 440 300 Balance 440 300 Meds/Results Medications: Active Medications Generic Name Dose Route Start Last Admin Trade Name Freq PRN Reason Stop Dose Admin Acetaminophen 650 mg 10/22/24 13:00 10/23/24 05:51 Acetaminophen 325 Mg Tablet PO 650 mg Q4HR [facility] Administration Apixaban 2.5 mg 10/23/24 09:00 Apixaban 2.5 Mg Tablet PO 11/03/24 21:01 Q12HR [facility] Cefdinir 300 mg 10/23/24 09:00 Cefdinir 300 Mg Capsule PO Q12HR [facility] Celecoxib 100 mg 10/23/24 08:00 Celecoxib 100 Mg Capsule PO DAILY@0800 [facility] Diphenhydramine HCl 25 mg 10/22/24 13:11 Diphenhydramine Hcl Inj 50 Mg/Ml Vial IV PUSH Q6H PRN Itching Ergocalciferol 50,000 units 11/02/24 09:00 Ergocalciferol 50,000 Units Capsule PO Q14D [facility] Famotidine 20 mg 10/22/24 21:00 10/22/24 20:35 Famotidine 20 Mg Tablet PO 20 mg Q12HR [facility] Administration Cefazolin Sodium 2 gm in 50 mls @ 100 mls/hr 10/22/24 18:00 10/23/24 01:31 Ancef 2 Gm/D5w 50 Ml IVPB 10/23/24 10:29 100 mls/hr Q8H [facility] Administration Morphine Sulfate 2 mg 10/22/24 13:11 Morphine Sulfate (*Crx) 2 Mg/Ml Inj IV PUSH Q2H PRN Breakthrough Pain Rated 4-6 or NPO Naloxone HCl 0.1 mg 10/22/24 13:11 Naloxone Hcl 0.4 Mg/Ml Vial IV PUSH Q2M PRN Opiate Reversal Ondansetron HCl 4 mg 10/22/24 13:11 Ondansetron Inj 4 Mg/2 Ml Vial IV PUSH Q4H PRN Nausea And Vomiting Oxycodone HCl 5 mg 10/22/24 13:00 10/23/24 05:48 Oxycodone Hcl (*Crx) 5 Mg Tab Ir PO Not Given Q4HR [facility] Oxycodone HCl 5 mg 10/22/24 13:11 Oxycodone Hcl (*Crx) 5 Mg Tab Ir PO Q4H PRN Pain Rated 7-10 Polyethylene Glycol 17 gm 10/23/24 09:00 Polyethylene Glycol 3350 17 [facility]m [facility] [place]/Docusate Sodium 2 tab 10/22/24 17:00 10/22/24 18:12 Senna/Docusate Sodium Tablet PO 2 tab BID [facility] Administration Venlafaxine HCl 75 mg 10/23/24 09:00 Venlafaxine Hcl Xr 75 Mg Cap.Er.24h [facility] [place] Results: ITS Impressions Knee X-Ray 10/22/24 11:42 IMPRESSION: 1. Right total knee arthroplasty, negative for postoperative purposes. Labs Labs: Laboratory Results - last 24 hr 10/22/24 06:30 Blood Type O Positive Antibody Screen Negative
--- NOTE | 2024-10-23 07:02 | PM.DS ---
DS: Admitting Diagnosis Discharge Date 10/23 Admitting Diagnosis Right knee DJD DS: Discharge Diagnosis Discharge Diagnosis (1) Primary osteoarthritis of right knee: Code(s): M17.11 - Unilateral primary osteoarthritis, right knee Status: Acute DS: Summary Hospital Course Hospital Course: 49-year-old female who underwent right total knee arthroplasty 0 10/22. Underwent the procedure without complications. Postoperatively she has been afebrile vital signs are stable. She was up walking with physical therapy the day of surgery was very comfortable. She had a little increased pain on the morning of postop day 1 but overall tolerable. She is on scheduled Tylenol every 4 hours and oxycodone 5 mg. She is also on Celebrex 100 mg a day. She is on Eliquis for DVT prophylaxis. Morning of postop day 1 patient was very alert. She was able to actively range her knee from 0-90 degrees without difficulty. There was a small area of drainage on the dressing, it did not reach the edges. Patient was advised if it does she should change the dressing. She will change in 1 week. Patient be discharged on 10/23. She is going to go home with Pepcid twice a day as well, she had intolerance to meloxicam when she had her left knee replaced, so will try Pepcid along with the low-dose Celebrex to see if she tolerates that better. Patient was advised to keep leg elevated home but do her exercises on hourly basis. She left knee replaced earlier this year she is very familiar with the recovery and what she needs to do. She is anxious to go home today. At the time of dictation morning labs not been completed these will be checked before discharge. She also go home on 1 week course of Omnicef as well as Senokot and MiraLax. Patient was advised any questions or concerns she is to call the office Time Spent with Patient Time attestation: Total time spent providing and/or coordinating discharge services: DS: Data Data Completed and Pending Labs on day of discharge: Labs from last 24 hours 10/22/24 06:30 Blood Type O Positive Antibody Screen Negative Discharge Plan Discharge Patient Disposition: Home, Self-Care Discharge Instructions: RAULITO NORTON M.D [facility] [address] [place] [address] [address] [place] [address] POST-OPERATIVE DISCHARGE INSTRUCTIONS TOTAL KNEE ARTHROPLASTY 1. When resting, do not rest in the chair.When resting, lie on your back, with back flat on the couch or bed, with leg elevated above heart to minimize swelling. You may put a pillow under your head. . Significant swelling could indicate a blood clot and if this occurs call the office (or go to the ER) to have a venous ultrasound. Therefore, do not rest in a chair. 2. At least five times a day spend several minutes stretching your knee into flexion while sitting in the chair and also stretching your knee out straight The abilities to bend your knee fully and straighten your knee fully are two most important knee functions to focus on during your recovery. 3. It is ok to sit in chair to eat, use the toilet and receive a guest and to do your stretching exercises, but, sitting in a chair will cause your leg to swell. Therefore, avoid additional time sitting in the chair. and don't rest in the chair. 4. Wound Care: Nursing will give you an additional Mepilex dressing at the time of discharge. Patient to remove the dressing and apply a new Mepilex dressing at home 7 days after surgery and leave the dressing on until seen in office. It is normal to see a small amount of blood on the silver pad of the Mepilex dressing. Its designed to hold small spots of blood. However, if the blood reaches the edge of the pad up to the boarder of the clear membrane that surrounds the pad, the pad is saturated and the Mepilex dressing should be removed and a new Mepilex dressing should be applied. 5. May shower with a Mepilex dressing in place.The water will run off the dressing. 6. Unless you are told otherwise, you may put full weight on your operated leg. Use a walker for balance and practice walking as normally as you can, ideally for a few minutes every hour while you are awake. 7. I would advise against putting ice packs on your knee incision. Ice constricts blood flow which can impar healing of the knee incision. IMPORTANT: Remember not to sit in the chair for more than 30 minutes at a time. As a rule, during the first 14 days after surgery, only sit in the chair to work on the chair knee bending stretch exercise, for meals or for use of the restroom. Sitting in the chair promotes significant swelling in the knee and leg which will make your knee stiff and more painful and which simulates having a blood clot in the veins of the leg. If this type of significant diffuse swelling occurs, an ultrasound at the hospital will be necessary to rule out a blood clot. Be up walking around with the walker for a few minutes every hour while awake and then rest laying on your back on the couch or in bed with your leg elevated on cushions or pillows. Do not rest in the chair. Patient Language: Yoruba Stand Alone Forms: General Discharge Instructions Follow-up/Referrals: Raulito Norton MD [Physician] - Keep Reg. Scheduled Appt. Discharge Medications: New acetaminophen 325 mg Tablet 650 mg PO Q4HR Qty: 90 0RF sennosides-docusate sodium [Senokot-S] 8.6-50 mg Tablet 2 tab-cap PO BID Qty: 60 0RF celecoxib [Celebrex] 100 mg Capsule 100 mg PO DAILY@0800 Qty: 30 0RF cefdinir 300 mg Capsule 300 mg PO Q12HR Qty: 14 0RF Eliquis 2.5 mg Tablet 2.5 mg PO Q12HR Qty: 28 0RF famotidine 20 mg Tablet 20 mg PO Q12HR Qty: 60 0RF polyethylene glycol 3350 [Miralax] 17 gram Powder In Packet 17 g PO QAM Qty: 30 0RF oxycodone 5 mg Tablet 5 mg PO Q4H PRN (Reason: Pain Rated 7-10) Qty: 40 0RF Continued venlafaxine 75 mg capsule,extended release 24hr 75 mg PO DAILY Patient Comments: I take it in the morning because it keeps me awake at night if I take it later in the day Rx Instructions: TAKE 1 CAPSULE BY MOUTH IN THE MORNING multivitamin Tablet 1 tablet PO DAILY cholecalciferol (vitamin D3) 1,250 mcg (50,000 unit) capsule 1,250 mcg PO .every 2 weeks Qty: 30 0RF Rx Instructions: Take after meal ferrous gluconate 324 mg (38 mg iron) tablet 324 mg PO DAILY Qty: 90 1RF Rx Instructions: Take with vitamin C or glass of orange juice. Discontinued ibuprofen [Advil] 200 mg tablet 400 mg PO ONCE PRN (Reason: pain) Patient Comments: Pt to hold for [address] Olivares.
[2024-10-23 08:11] LABS: Basophils Absolute Auto 0.1 K/mm3 (0.0-0.1); Basophils Percent Auto 0.3 % (0.2-1.2); Eosinophils Percent Auto 0.2 % (0-4.4); Hematocrit 32.7 % (37.0-47.0); Hemoglobin 10.4 g/dL (12.0-15.0); Immature Granulocyte Absolute 0.08 K/mm3 (0.00-0.031); Immature Granulocyte Percent A 0.6 % (0-0.5); Lymphocytes Percent Auto 15.4 % (18.3-44.2); Mean Corpuscular HGB Conc 31.8 g/dl (32-36); Mean Corpuscular Hemoglobin 27.9 pg (26-34); Mean Corpuscular Volume 87.7 fl (80-100); Mean Platelet Volume 10.8 fl (7.4-10.4); Monocytes Absolute Auto 1.7 K/mm3 (0.1-0.6); Monocytes Percent Auto 11.7 % (2.6-8.5); Neutrophils Absolute Auto 10.3 K/mm3 (1.3-6.7); Neutrophils Percent Auto 71.8 % (45.5-73.1); Platelet Count Result 221 k/mm3 (150-375); Red Blood Count 3.73 M/mm3 (4.2-5.4); Red Cell Distribution Width 13.1 % (11.5-14.5); White Blood Count 14.3 K/mm3 (4.5-10.0)
[2024-10-23 08:31] LABS: Anion Gap 0 mmol/L (4-12); Blood Urea Nitrogen 15 mg/dL (7-17); Calcium 8.8 mg/dL (8.4-10.2); Carbon Dioxide 30 mmol/L (22-30); Chloride 107 mmol/L (98-107); Estimated CRCL calculation 69 ml/min; Estimated Glomerular Filt Rate 58; Glucose 112 mg/dL (65-110); Potassium 4.4 mmol/L (3.4-5.0); Sodium 137 mmol/L (137-145)
[2024-10-23] MEDS: APIXABAN 2.5 MG TABLET PO (09:14)
[2024-10-23] MEDS: SENNA/DOCUSATE SODIUM TABLET 2 TAB PO (09:14)
[2024-10-23] MEDS: CELECOXIB 100 MG CAPSULE PO (09:14)
[2024-10-23] MEDS: FAMOTIDINE 20 MG TABLET PO (09:14)
[2024-10-23] MEDS: VENLAFAXINE HCL XR 75 MG CAP.ER.24H PO (09:14)
[2024-10-23] MEDS: CEFDINIR 300 MG CAPSULE PO (09:15)
[2024-10-23] MEDS: polyethylene glycoL 3350 17 GM POWD.PACK PO (09:15)
[2024-10-23 10:56] VITALS: BP 107/58; PULSE 75; RESP 20; TEMP 36; O2SAT 98
--- OUTSIDE RECORDS SUMMARY | 2024-10-28 20:57 | XMS_ITS | Continuity of Care Document ---
Author Organization [facility] Address [address] [place] [address] Care Team Providers Care Tool Checker Name Role Phone MD Raulito Norton Attending Provider [phone] MD Josefina Martin Primary Care Provider + MD Josefina Martin Referring Provider VERONIKA Packer Attending Provider MD Aly Buchanan Emergency Provider Care Teams Patient Care Team Team Status: Active Member Role Status Dates Josefina Martin MD Primary Care Provider Active Visit Care Team Team Status: Inactive Member Role Status Dates Josefina Martin MD Primary Care P zandra, Attending Provider, Referring Provider Active Visit Care Team Team Status: Inactive Member Role Status Dates VERONIKA Morrow Attending Provider Active Josefina Martin MD Primary Care Provider, Refer ring Provider Active Visit Care Team Team Status: Inactive Member Role Status Dates Raulito Norton MD Attending Provider Active Josefina Martin MD Primary Care Provider, Refer ring Provider Active Visit Care Team Team Status: Inactive Member Role Status Dates Raulito Norton MD Attending Provider Active Josefina Martin MD Primary Care Provider, Refer ring Provider Active Visit Care Team Team Status: Inactive Member Role Status Dates VERONIKA Morrow Attending Provider Active Josefina Martin MD Primary Care Provider, Refer ring Provider Active Visit Care Team Team Status: Inactive Member Role Status Dates Raulito Norton MD Attending Provider Active Josefina Martin MD Primary Care Provider, Refer ring Provider Active Visit Care Team Team Status: Inactive Member Role Status Dates Raulito Norton MD Attending Provider Active Josefina Martin MD Referring Provider Active Visit Care Team Team Status: Inactive Member Role Status Dates Josefina Martin MD Primary Care Provider Active Raulito Norton MD Attending Provider Active Visit Care Team Team Status: Inactive Member Role Status Dates Joesfina Martin MD Primary Care Provider Active Raulito Norton MD Attending Provider Active Visit Care Team Team Status: Inactive Member Role Status Dates Josefina Martin MD Primary Care Provider Active Raulito Norton MD Attending Provider Active Visit Care Team Team Status: Inactive Member Role Status Dates Josefina Martin MD Primary Care Provider Active Raulito Norton MD Attending Provider Active Patient Care Team Team Status: Inactive Member Role Status Dates Josefina Martin MD Primary Care Provider Active Aly Buchanan MD Emergency Provider Active Chief Complaint and Reason for Visit Chief Complaint Left knee pain OA bilat knees 6-6 OA bilat knees left knee post op M17.12, Z96.652 left knee left calf hurting other specified soft tissue disorders right knee Wellness Exam vomiting Reason for Visit Primary localized os teoarthritis of both knees Primary localized osteoarthritis of both knees History of total left knee replacement History of total left knee replacement History of total left knee replacement Lumbar radicular pain Primary osteoarthritis of right knee Generalized anxiety disorder Obesity (BMI 30-39.9) Major depression, recurrent, chronic Encounter for wellness examination Allergies, Adverse Reactions, Alerts Allergen Type Severity Reaction Last Updated Verified Status Penicillins Allergy Moderate Hives August 02, 2024 6:20am Y es Active vancomycin Allergy Unknown Hives August 02, 2024 6:20am Yes Active Social History Smoking Status Status Start Date End Date Date of Observa tion Ex-smoker (finding) [facility] 2023 3:59pm Observation Status Date of Observation Not July 08, 2024 Observation Status Observation Response Date of Response Do You Feel Safe in your Home? Yes Bran moreno 2023 8:02am Has Lack of Trans Kept You F rom Med Appts or Getting Meds? No May 06, 2024 8:02am In Past 12 Months, Were You Worried Your Food Would Run Out? Never True May 06, 2024 8:02a m What is Your Housing Situati on Today? I Have Housing May 06, 2024 8:02am Are You Worried That in Next 2 Mo, You Won't Have Housing? No May 06, 2024 8:02am Do You Have Trouble Paying Y our Heating Or Electricity Bill? No May 06, 2024 8:02am Do You Have Trouble Paying F or Medicines? No May 06, 2024 8:02am Are You Currently Unemployed and Looking for Work? No May 06, 2024 8:02am Highest Level of Education Completed Trade/Vocational Certificate May 06, 2024 8:02am Do You Have Trouble With Childcare/Care of a Family Member? No May 06, 2024 8:02am alcohol intake current May 06, 2024 8:02am Substance use type marijuana May 06 8:02am Additional Data Assigned Sex Female Family History Relationship Condition Age at Onset Recorded Date/T daquan Not Specified Family history of ca rdiovascular disease Unknown Family history of Alzheimer's disease Unk nown Family history of co ngestive heart failure Unknown mother Family history of thyroid disease Unknown Depression Unknown Family history of ma lignant neoplasm of ovary Unknown Family history of ma lignant neoplasm of cervix Unknown Family history of ma lignant neoplasm of thyroid Unknown Unknown father Diabetes mellitus Unknown Family history of arthritis Unknown Family history of di abetes mellitus in first degree relative Unknown grandparent Family history of co ronary artery disease Unknown Problems Active Problems Medical Problem Onset Date Status Generalized anxiety disorder Act gene Primary osteoarthritis of right knee Active Major depression, recurrent, chronic Active Degenerative arthritis of knee, bilateral Active Hearing loss Active Obstructive sleep apnea (adult) (pediatric) Active Actinic keratitis Active History of total left knee replacement Active Mixed hyperlipidemia Active Adverse drug reaction Active Bariatric surgery status Active Primary localized osteoarthritis of both knees Active Chronic GERD Active Memory changes Active Atypical ductal hyperplasia, breast Active Lumbar radicular pain Active Iron deficiency anemia following bariatric surge ry Active Colon polyps Active Vitamin D deficiency, unspecified Active Dumping syndrome Active Internal derangement of knee joint Active Obesity (BMI 30-39.9) Active Inactive/Resolved Problems Medical Problem Onset Date Status Atypical nevus of face Resolved Colon cancer screening Resolved Perimenopausal menorrhagia Resol alfredo Intermittent palpitations Resolv ed Patellofemoral syndrome, right R esolved Medications Medication Status Dose Units Route Directions Qty Days St art Date End Date Instructions Ondansetron Active 4 MG PO Q8H 14 Octob er 2023 12:00am Multivitamin Active 1 TABLET PO DAILY Jun embe r 2023 12:00am Cholecalcifero l (Vitamin D3) Active 1250 MCG PO .every 2 weeks 30 e r 2023 12:00am Take after meal Ferrous Gluconate Active 324 MG PO DAILY 90 Junembe r 2023 12:00am Take with vitamin C or glass of orange juice. Venlafaxine Active 0 .ROUTE .COMPLEX 90 Sep tembe r 2023 9:44am TAKE 1 CAPSULE BY MOUTH IN THE EVENING Immunizations Immunization Event Date Not Given Reason Dose Number Gum Rolling Machine Operator Lot Number Vaccine Information Statement (VIS) Detail Fluarix Quad 6m+ July 21, 2018 Flulaval Quad 3YR+ July 21, 2018 Hepatitis A Vaccine, Adult Dosage November 06, 2018 Influenza, inactivated quadrivalent July 08, 2024 [id number] SARS-COV-2 (COVID-19) Jm December 26, 2020 Tetanus, Diphtheria, Pertussis (Tdap) November 06, 2018 Medical Equipment Device Date Implanted Device Details BIOMET BONE CEMENT R March 26, 2024 BIOMET BONE CEMENT REFOBACIN March 26, 2024 BIOMET FEMORAL COMPONENT [id number] March 26, 2024 BIOMET TIBIAL TRAY [id number] March 26, 2024 TOTAL KNEE MED DEMAND CEFERINO March 26, 2024 VANGUARD TIBIAL BEARING [id number] March 26, 2024 Procedures Procedure Date Performed Status Total Knee Arthroplasty (Bilateral) March 26 7:30am completed Staphylococcus Screen March 06, 2024 completed Urine Culture August 02, 2024 active Relevant Diagnostic Tests and/or Laboratory Data Laboratory Results Test Date/Time Result Interpretation Reference Range Result Comment Performing Site Vitamin B12 Level March 04, 2024 8:10am 410 pg/mL 200-1100 Thyroid Stimulating Hormone (TSH) March 04, 2024 8:10am 2.02 mIU/L Reference Range > or = 20 Years 0.40-4.50 Ranges First trimester 0.26-2.66 Second trimester 0.55-2.73 Third trimester 0.43-2.91 Ferritin March 04, 2024 8:10am 15 ng/mL Below low normal 16-232 Glucose Level March 04, 2024 8:10am 71 mg/dL 65-99 Fasting reference interval Vitamin D 1,25-Dihydrox y Total March 05, 2024 2:37pm 30 pg/mL 18-72 Ferritin March 05, 2024 2:37pm 17 ng/mL 16-232 White Blood Count March 05, 2024 2:37pm 8.7 Thousand/uL 3.8-10.8 Celiac Disease Screen March 05, 2024 2:37pm See comment No serological evidence for celiac disease is present. tTg may normalize in individuals with celiac disease who maintain a gluten free diet. If high suspicion of celiac disease, consider HLA DQ2 and DQ8 testing to rule out celiac disease. Vitamin D 25-Hydroxy July 13, 2024 8:01am 21 ng/mL Below low normal 30-100 Vitamin D Status 25-OH Vitamin D: Deficiency: <20 ng/mLInsufficie ncy: 20 - 29 ng/mLOptimal: > or = 30 ng/mL For 25-OH Vitamin D testing on patients on D2-supplementat ion and patients for whom quantitation of D2 and D3 fractions is required, the Sendia(TM )25-OH VIT D, (D2,D3), LC/MS/MS is recommended: order code [id number] (patients >2yrs). See Note 1 Note 1 For additional information, please refer to http://educatio n.[employer] Word [employer].com/faq/FAQ 199 (This link is being provided for informational/e ducational purposes only.) Vitamin B12 Level July 13, 2024 8:01am 315 pg/mL 200-1100 Please Note: Although the reference range for iameauqA14 is 200-1100 pg/mL, it has been reported that between5 and 10% of patients with values between 200 and 400pg/mL may experience neuropsychiatri c and hematologicabno rmalities due to occult B12 deficiency; less than 1%of patients with values above 400 pg/mL will have symptoms. Ferritin July 13, 2024 8:01am 14 ng/mL Below low normal 16-232 White Blood Count July 13, 2024 8:01am 8.7 Thousand/uL 3.8-10.8 Glucose Level July 13, 2024 8:01am 81 mg/dL 65-99 Fasting reference interval Triglycerides Level July 13, 2024 8:01am 146 mg/dL <150 Blood Urea Nitrogen March 04, 2024 8:10am 18 mg/dL 7-25 1,25 Dihydroxy Vitamin D3 March 05, 2024 2:37pm 30 pg/mL Red Blood Count March 05, 2024 2:37pm 4.69 Million/uL 3.80-5.10 Tissue Transglutamin ase IgA Ab March 05, 2024 2:37pm <1.0 U/mL Value Interpretation- ---- < 15.0 Antibody not detected> or = 15.0 Antibody detected Red Blood Count July 13, 2024 8:01am 4.56 Million/uL 3.80-5.10 Blood Urea Nitrogen July 13, 2024 8:01am 16 mg/dL 7-25 Cholesterol Level July 13, 2024 8:01am 222 mg/dL Above high normal <200 Creatinine March 04, 2024 8:10am 1.00 mg/dL 0.50-1.03 1,25 Dihydroxy Vitamin D2 March 05, 2024 2:37pm <8 pg/mL (Note)Vitamin D3, 1,25(OH)2 indicates both endogenous production and supplementation . Vitamin D2, 1,25(OH)2 is an indicator of exogenous sources, such as diet or supplementation . Interpretation and therapy are based on measurement of Vitamin D, 1,25 (OH)2, Total. This test was developed, and its analytical performance characteristics have been determined by [employer]. It has not been cleared or approved by the FDA. This assay has been validated pursuant to the CLIA regulations and is used for clinical purposes. For additional information, please refer tohttp://educat ion.[employer].com/faq/F AQ199(This link is being provided for informational/e ducational purposes only.) [facility] [id number] [place] [address],[address] [place] [address] [phone] Munir Johnson MD, PhD Hemoglobin March 05, 2024 2:37pm 13.4 g/dL 11.7-15.5 Immunoglobuli n A March 05, 2024 2:37pm 168 mg/dL 47-310 Hemoglobin July 13, 2024 8:01am 12.7 g/dL 11.7-15.5 Creatinine July 13, 2024 8:01am 0.95 mg/dL 0.50-1.03 HDL Cholesterol Direct July 13, 2024 8:01am 63 mg/dL > OR = 50 BUN/Creatinin e Ratio March 04, 2024 8:10am SEE NOTE: (calc) 6-22 Not Reported: BUN and Creatinine are within reference range. Hematocrit March 05, 2024 2:37pm 40.2 % 35.0-45.0 Hematocrit July 13, 2024 8:01am 40.2 % 35.0-45.0 BUN/Creatinin e Ratio July 13, 2024 8:01am SEE NOTE: (calc) 6-22 Not Reported: BUN and Creatinine are within reference range. LDL Cholesterol, Calculated July 13, 2024 8:01am 133 mg/dL (calc) Above high normal Reference range: <100 Desirable range <100 mg/dL for primary prevention; <70 mg/dL for patients with CHD or diabetic patients with > or = 2 CHD risk factors. LDL-C is now calculated using the Manuel calculation, which is a validated novel method providing better accuracy than the Friedewald equation in the estimation of LDL-C. Martell ORELLANA et al. AKI. 2013;310(19): 6466-8592 (http://educati on.[employer]/faq/FA Q164) Sodium Level March 04, 2024 8:10am 139 mmol/L 135-146 Mean Corpuscular Volume March 05, 2024 2:37pm 85.7 fL 80.0-100.0 Mean Corpuscular Volume July 13, 2024 8:01am 88.2 fL 80.0-100.0 Sodium Level July 13, 2024 8:01am 138 mmol/L 135-146 Cholesterol/H DL Ratio July 13, 2024 8:01am 3.5 (calc) <5.0 Potassium Level March 04, 2024 8:10am 4.1 mmol/L 3.5-5.3 Mean Corpuscular Hemoglobin March 05, 2024 2:37pm 28.6 pg 27.0-33.0 Mean Corpuscular Hemoglobin July 13, 2024 8:01am 27.9 pg 27.0-33.0 Potassium Level July 13, 2024 8:01am 4.3 mmol/L 3.5-5.3 Non-HDL Cholesterol July 13, 2024 8:01am 159 mg/dL (calc) Above high normal <130 For patients with diabetes plus 1 major ASCVD risk factor, treating to a non-HDL-C goal of <100 mg/dL (LDL-C of <70 mg/dL) is considered a therapeutic option. Chloride Level March 04, 2024 8:10am 101 mmol/L 98-110 Mean Corpuscular Hemoglobin Concent March 05, 2024 2:37pm 33.3 g/dL 32.0-36.0 Mean Corpuscular Hemoglobin Concent July 13, 2024 8:01am 31.6 g/dL Below low normal 32.0-36.0 Chloride Level July 13, 2024 8:01am 102 mmol/L 98-110 Carbon Dioxide Level March 04, 2024 8:10am 27 mmol/L 20-32 Red Cell Distribution Width March 05, 2024 2:37pm 13.0 % 11.0-15.0 Red Cell Distribution Width July 13, 2024 8:01am 13.3 % 11.0-15.0 Carbon Dioxide Level July 13, 2024 8:01am 23 mmol/L 20-32 Calcium Level March 04, 2024 8:10am 9.6 mg/dL 8.6-10.4 Platelet Count March 05, 2024 2:37pm 248 Thousand/uL 140-400 Platelet Count July 13, 2024 8:01am 249 Thousand/uL 140-400 Calcium Level July 13, 2024 8:01am 9.2 mg/dL 8.6-10.4 Total Protein March 04, 2024 8:10am 6.5 g/dL 6.1-8.1 Neutrophils % March 05, 2024 2:37pm 59.4 % Neutrophils % July 13, 2024 8:01am 56.6 % Total Protein July 13, 2024 8:01am 6.2 g/dL 6.1-8.1 Albumin March 04, 2024 8:10am 4.3 g/dL 3.6-5.1 Band Neutrophils % March 05, 2024 2:37pm BONE WORKER % Band Neutrophils % July 13, 2024 8:01am BONE WORKER % Albumin July 13, 2024 8:01am 4.0 g/dL 3.6-5.1 Globulin March 04, 2024 8:10am 2.2 g/dL (calc) 1.9-3.7 Band Neutrophils # March 05, 2024 2:37pm BONE WORKER cells/uL 0-750 Band Neutrophils # July 13, 2024 8:01am BONE WORKER cells/uL 0-750 Globulin July 13, 2024 8:01am 2.2 g/dL (calc) 1.9-3.7 Albumin/Globu jae Ratio March 04, 2024 8:10am 2.0 (calc) 1.0-2.5 Metamyelocyte s % March 05, 2024 2:37pm BONE WORKER % Metamyelocyte s % July 13, 2024 8:01am BONE WORKER % Albumin/Globu jae Ratio July 13, 2024 8:01am 1.8 (calc) 1.0-2.5 Total Bilirubin March 04, 2024 8:10am 0.3 mg/dL 0.2-1.2 Metamyelocyte s # March 05, 2024 2:37pm BONE WORKER cells/uL 0 Metamyelocyte s # July 13, 2024 8:01am BONE WORKER cells/uL 0 Total Bilirubin July 13, 2024 8:01am 0.4 mg/dL 0.2-1.2 Alkaline Phosphatase March 04, 2024 8:10am 73 U/L 37-153 Myelocytes % March 05, 2024 2:37pm BONE WORKER % Myelocytes % July 13, 2024 8:01am BONE WORKER % Alkaline Phosphatase July 13, 2024 8:01am 58 U/L 37-153 Aspartate Amino Transf (AST/SGOT) March 04, 2024 8:10am 15 U/L 10-35 Myelocytes # March 05, 2024 2:37pm BONE WORKER cells/uL 0 Myelocytes # July 13, 2024 8:01am BONE WORKER cells/uL 0 Aspartate Amino Transf (AST/SGOT) July 13, 2024 8:01am 13 U/L 10-35 Alanine Aminotransfer ase (ALT/SGPT) March 04, 2024 8:10am 7 U/L 6-29 Promyelocytes % March 05, 2024 2:37pm BONE WORKER % Promyelocytes % July 13, 2024 8:01am BONE WORKER % Alanine Aminotransfer ase (ALT/SGPT) July 13, 2024 8:01am 6 U/L 6-29 Estimat Glomerular Filtration Rate March 04, 2024 8:10am 68 mL/min/1.73 m2 > OR = 60 Promyelocytes # March 05, 2024 2:37pm BONE WORKER cells/uL 0 Promyelocytes # July 13, 2024 8:01am BONE WORKER cells/uL 0 Estimat Glomerular Filtration Rate July 13, 2024 8:01am 73 mL/min/1.73 m2 > OR = 60 Neutrophils # March 05, 2024 2:37pm 5168 cells/uL 9459-5394 Neutrophils # July 13, 2024 8:01am 4924 cells/uL 1671-5509 Lymphocytes % March 05, 2024 2:37pm 31.2 % Lymphocytes % July 13, 2024 8:01am 32.3 % Reactive Lymphocytes % March 05, 2024 2:37pm BONE WORKER % 0-10 Reactive Lymphocytes % July 13, 2024 8:01am BONE WORKER % 0-10 Lymphocytes # March 05, 2024 2:37pm 2714 cells/uL 850-3900 Lymphocytes # July 13, 2024 8:01am 2810 cells/uL 850-3900 Monocytes % March 05, 2024 2:37pm 7.1 % Monocytes % July 13, 2024 8:01am 8.9 % Monocytes # March 05, 2024 2:37pm 618 cells/uL 200-950 Monocytes # July 13, 2024 8:01am 774 cells/uL 200-950 Eosinophils % March 05, 2024 2:37pm 1.6 % Eosinophils % July 13, 2024 8:01am 1.5 % Eosinophils # March 05, 2024 2:37pm 139 cells/uL 15-500 Eosinophils # July 13, 2024 8:01am 131 cells/uL 15-500 Basophils % March 05, 2024 2:37pm 0.7 % Basophils % July 13, 2024 8:01am 0.7 % Basophils # March 05, 2024 2:37pm 61 cells/uL 0-200 Basophils # July 13, 2024 8:01am 61 cells/uL 0-200 Blast Cells % March 05, 2024 2:37pm BONE WORKER % Blast Cells % July 13, 2024 8:01am BONE WORKER % Blast Cells # March 05, 2024 2:37pm BONE WORKER cells/uL 0 Blast Cells # July 13, 2024 8:01am BONE WORKER cells/uL 0 Nucleated Red Blood Cells % March 05, 2024 2:37pm BONE WORKER /100 WBC 0 Nucleated Red Blood Cells % July 13, 2024 8:01am BONE WORKER /100 WBC 0 Nucleated Red Blood Cells # March 05, 2024 2:37pm BONE WORKER cells/uL 0 Nucleated Red Blood Cells # July 13, 2024 8:01am BONE WORKER cells/uL 0 Hematology Comments March 05, 2024 2:37pm BONE WORKER Hematology Comments July 13, 2024 8:01am BONE WORKER Mean Platelet Volume March 05, 2024 2:37pm 11.3 fL 7.5-12.5 Mean Platelet Volume July 13, 2024 8:01am 11.7 fL 7.5-12.5 White Blood Count March 27, 2024 4:26am 14.6 K/mm3 Above high normal 4.5-10.0 [facility] [id number] [address] [place] [address] White Blood Count August 02, 2024 6:13am 12.0 K/mm3 Above high normal 4.5-10.0 [facility] [id number] [address] [place] [address] Red Blood Count March 27, 2024 4:26am 3.96 M/mm3 Below low normal 4.2-5.4 [facility] [id number] [address] [place] [address] 287[address] Red Blood Count August 02, 2024 6:13am 4.99 M/mm3 4.2-5.4 [facility] [id number] [address] [place] [address] Hemoglobin March 27, 2024 4:26am 11.0 g/dL Below low normal 12.0-15.0 [facility] [id number] [address] [place] [address] Hemoglobin August 02, 2024 6:13am 14.2 g/dL 12.0-15.0 Delta: 11.0 on 03/27/24-6 [facility] [id number] [address] [address] Hematocrit March 27, 2024 4:26am 35.6 % Below low normal 37.0-47.0 [facility] [id number] [address] [address] Hematocrit August 02, 2024 6:13am 43.5 % 37.0-47.0 [facility] [id number] [address] [address] Mean Corpuscular Volume March 27, 2024 4:26am 89.9 fL [facility]100 [facility] [id number] [address] [address] Mean Corpuscular Volume August 02, 2024 6:13am 87.2 fL 80-100 [facility] [id number] [address] [address] Mean Corpuscular Hemoglobin March 27, 2024 4:26am 27.8 pg 26-34 [facility] [id number] [address] [address] Mean Corpuscular Hemoglobin August 02, 2024 6:13am 28.5 pg 26-34 [facility] [id number] [address] [address] Mean Corpuscular Hemoglobin Concent March 27, 2024 4:26am 30.9 g/dL Below low normal -36 [facility] [id number] [address] [address] Mean Corpuscular Hemoglobin Concent August 02, 2024 6:13am 32.6 g/dL [facility]36 [facility] [id number] [facility] [address] [address] Red Cell Distribution Width March 27, 2024 4:26am 12.9 % 11.5-14.5 [facility] [id number] [address] [address] Red Cell Distribution Width August 02, 2024 6:13am 13.5 % 11.5-14.5 [facility] [id number] [address] [address] Platelet Count March 27, 2024 4:26am 216 k/mm3 150-375 [facility] [id number] [address] [address] Platelet Count August 02, 2024 6:13am 341 k/mm3 150-375 Delta: 216 on 03/27/24-0426 [facility] [id number] [address] [place] [address] Mean Platelet Volume March 27, 2024 4:26am 11.3 fL Above high normal 7.4-10.4 [facility] [id number] [address] [place] [address] Mean Platelet Volume August 02, 2024 6:13am 10.9 fL Above high normal 7.4-10.4 [facility] [id number] [address] [place] [address] Nucleated Red Blood Cells % March 27, 2024 4:26am 0.0 % 0.0-0.2 [facility] [id number] [address] [place] [address] Nucleated Red Blood Cells % August 02, 2024 6:13am 0.0 % 0.0-0.2 [facility] [id number] [address] [place] [address] Immature Granulocyte % (Auto) March 27, 2024 4:26am 0.4 % 0-0.5 [facility] [id number] [address] [place] [address] Immature Granulocyte % (Auto) August 02, 2024 6:13am 0.7 % Above high normal 0-0.5 [facility] [id number] [address] [place] [address] Neutrophils (%) (Auto) March 27, 2024 4:26am 73.3 % Above high normal 45.5-73.1 [facility] [id number] [address] [place] [address] Neutrophils (%) (Auto) August 02, 2024 6:13am 74.9 % Above high normal 45.5-73.1 [facility] [id number] [address] [place] [address] Lymphocytes (%) (Auto) March 27, 2024 4:26am 14.4 % Below low normal 18.3-44.2 [facility] [id number] [address] [place] [address] Lymphocytes (%) (Auto) August 02, 2024 6:13am 18.0 % Below low normal 18.3-44.2 [facility] [id number] [address] [place] [address] Monocytes (%) (Auto) March 27, 2024 4:26am 11.3 % Above high normal 2.6-8.5 [facility] [id number] [address] [place] [address] Monocytes (%) (Auto) August 02, 2024 6:13am 5.6 % 2.6-8.5 [facility] [id number] [address] [place] [address] Eosinophils (%) (Auto) March 27, 2024 4:26am 0.1 % 0-4.4 [facility] [id number] [address] [place] [address] Eosinophils (%) (Auto) August 02, 2024 6:13am 0.3 % 0-4.4 [facility] [id number] [address] [place] [address] Basophils (%) (Auto) March 27, 2024 4:26am 0.5 % 0.2-1.2 [facility] [id number] [address] [place] [address] Basophils (%) (Auto) August 02, 2024 6:13am 0.5 % 0.2-1.2 [facility] [id number] [address] [place] [address] Nucleated RBC Absolute Count (auto) March 27, 2024 4:26am 0.000 K/mm3 0.0-0.012 [facility] [facility] [id number] [address] [place] [address] 47396 Nucleated RBC Absolute Count (auto) August 02, 2024 6:13am 0.000 K/mm3 0.0-0.012 [facility] [id number] [address] [place] [address] 52674 Absolute Immature Granulocyte (auto March 27, 2024 4:26am 0.06 K/mm3 Above high normal 0.00-0.031 [facility] [id number] [address] [place], [place] [address] Absolute Immature Granulocyte (auto August 02, 2024 6:13am 0.09 K/mm3 Above high normal 0.00-0.031 [facility] [id number] [address] [place], [place] [address] Absolute Neutrophils (auto) March 27, 2024 4:26am 10.7 K/mm3 Above high normal 1.3-6.7 [facility] [id number] [address] [place], [place] [address] Absolute Neutrophils (auto) August 02, 2024 6:13am 9.0 K/mm3 Above high normal 1.3-6.7 [facility] [id number] [address] [place] [address] Lymphocytes # (Auto) March 27, 2024 4:26am 2.10 K/mm3 0.9-3.2 [facility] [id number] [address] [place] [address] Lymphocytes # (Auto) August 02, 2024 6:13am 2.16 K/mm3 0.9-3.2 [facility] [id number] [address] [place] [address] Monocytes # (Auto) March 27, 2024 4:26am 1.7 K/mm3 Above high normal 0.1-0.6 [facility] [id number] [address] [place] [address] Monocytes # (Auto) August 02, 2024 6:13am 0.7 K/mm3 Above high normal 0.1-0.6 [facility] [id number] [address] [place] [address] Eosinophils # (Auto) March 27, 2024 4:26am 0.0 K/mm3 0-0.3 [facility] [id number] [address] [place] [address] Eosinophils # (Auto) August 02, 2024 6:13am 0.0 K/mm3 0-0.3 [facility] [id number] [address] [place] [address] Basophils # (Auto) March 27, 2024 4:26am 0.1 K/mm3 0.0-0.1 [facility] [id number] [address] [place] [address] Basophils # (Auto) August 02, 2024 6:13am 0.1 K/mm3 0.0-0.1 [facility] [id number] [address] [place], [place] [address] Urine Color August 02, 2024 6:41am Yellow Yellow [facility] [id number] [address] [place], [place] [address] Urine Appearance August 02, 2024 6:41am Cloudy Above high normal [facility] [id number] [facility] [address] [address] Urine pH August 02, 2024 6:41am 7.0 5.0-9.0 [facility] [id number] [facility] [address] [address] Urine Specific Fine August 02, 2024 6:41am 1.026 1.001-1.03 5 [facility] [id number] [facility] [address] [address] Urine Protein August 02, 2024 6:41am Trace mg/dL Negative [facility] [id number] [facility] [address] [address] Urine Glucose (UA) August 02, 2024 6:41am Negative mg/dL Negative [facility] [id number] [address] [place] [address]185 Urine Ketones August 02, 2024 6:41am Negative mg/dL Negative [facility] [id number] [address] [place] [address]35 Urine Blood (Manual) August 02, 2024 6:41am Negative Negative [facility] [id number] [address] [place] [address]7553 Urine Nitrate August 02, 2024 6:41am Negative Negative [facility] [id number] [address] [place] [address]1245 Urine Bilirubin August 02, 2024 6:41am Negative Negative [facility] [id number] [address] [place] [address] Urine Urobilinogen August 02, 2024 6:41am 0.2 mg/dL <2.0 [facility] [id number] [address] [place] [address]252 Urine Leukocyte Esterase (Reflex) August 02, 2024 6:41am 1+ JAY/UL Above high normal Negative [facility] [id number] [facility] [address] [address] Urine RBC August 02, 2024 6:41am 0-2 [HPF] 0-2 [facility] [id number] [facility] [address] [address] Urine WBC August 02, 2024 6:41am 21-50 [HPF] Above high normal 0-3 [facility] [id number] [facility] [address] [address] Urine Squamous Epithelial Cells August 02, 2024 6:41am Moderate [HPF] Few [facility] [id number] [address] [address] Urine Bacteria August 02, 2024 6:41am 4+ [HPF] Above high normal [facility] [id number] [address] [address] Urine Test August 02, 2024 7:23am Negative [facility] [id number] [facility] [address] [address] Sodium Level March 27, 2024 4:26am 140 mmol/L 137-145 [facility] [id number] [facility] [address] [address] Sodium Level August 02, 2024 6:13am 142 mmol/L 137-145 [facility] [id number] [facility] [address] [address] Potassium Level March 27, 2024 4:26am 4.0 mmol/L 3.4-5.0 [facility] [id number] [facility] [address] [address] Potassium Level August 02, 2024 6:13am 3.9 mmol/L 3.4-5.0 [facility] [id number] [address] [address] Chloride Level March 27, 2024 4:26am 108 mmol/L Above high normal 98-107 [facility] [id number] [facility] [address] [address] Chloride Level August 02, 2024 6:13am 103 mmol/L 98-107 [facility] [id number] [facility] [address] [address] Carbon Dioxide Level March 27, 2024 4:26am 27 mmol/L [facility] [id number] [facility] [address] [address] Carbon Dioxide Level August 02, 2024 6:13am 29 mmol/L [facility] [id number] [address] [address] Anion Gap March 27, 2024 4:26am 5 mmol/L 01-30 [facility] [id number] [facility] [address] [address] Anion Gap August 02, 2024 6:13am 10 mmol/L 01-30 [facility] [id number] [facility] [address] [place] [address] Blood Urea Nitrogen March 27, 2024 4:26am 18 mg/dL Above high normal 05-06 [facility] [id number] [address] [place] [address] Blood Urea Nitrogen August 02, 2024 6:13am 15 mg/dL 05-06 [facility] [id number] [address] [place] [address] Creatinine March 27, 2024 4:26am 0.90 mg/dL 0.7-1.0 [facility] [id number] [address] [place] [address] Creatinine August 02, 2024 6:13am 0.90 mg/dL 0.7-1.0 [facility] [id number] [address] [place] [address] Estimat Glomerular Filtration Rate March 27, 2024 4:26am > 60 >59 > OR = 60 ml/min/1.73 square metersThe MDRD formula used to calculate the eGFR result has not been validated in patients > 70 years of age. [facility] [id number] [address] [place] [address] Estimat Glomerular Filtration Rate August 02, 2024 6:13am > 60 >59 > OR = 60 ml/min/1.73 square metersThe MDRD formula used to calculate the eGFR result has not been validated in patients > 70 years of age. [facility] [id number] [address] [place] [address] Estimated Creatinine Clearance Calc March 27, 2024 4:26am 70 mL/min For use in prescription drug dose determination only. Reference ranges have not been establishe for this calculation. [facility] [id number] [address] [place] [address] Estimated Creatinine Clearance Calc August 02, 2024 6:13am Not Reportable [facility] [id number] [address] [place] [address] Glucose Level March 27, 2024 4:26am 99 mg/dL 65-110 [facility] [id number] [address] [place] [address] Glucose Level August 02, 2024 6:13am 114 mg/dL Above high normal 65-110 [facility] [id number] [address] [place] [address] Hemoglobin A1c March 06, 2024 2:53pm 5.0 % <5.7 <5.7: Decreased risk of diabetes 5.7-6.0: Increased risk of diabetes 6.1-6.4: Higher risk of diabetes> or = 6.5: Consistent with diabetes [facility] [id number] [address] [place], [place] [address] Calcium Level March 27, 2024 4:26am 8.4 mg/dL 8.4-10.2 [facility] [id number] [address] [place] [address] Calcium Level August 02, 2024 6:13am 10.1 mg/dL 8.4-10.2 [facility] [id number] [address] [place] [address] Total Bilirubin August 02, 2024 6:13am 0.9 mg/dL 0.2-1.3 [facility] [id number] [address] [place], [place] [address] Aspartate Amino Transf (AST/SGOT) August 02, 2024 6:13am 24 U/L 14-36 [facility] [id number] [address] [place], [place] [address] Alanine Aminotransfer ase (ALT/SGPT) August 02, 2024 6:13am 12 U/L 6-35 [facility] [id number] [address] [place], [place] [address] Total Protein August 02, 2024 6:13am 9.0 g/dL Above high normal 6.3-8.2 [facility] [id number] [address] [place] [address] Albumin August 02, 2024 6:13am 5.1 g/dL 3.5-5.1 [facility] [id number] [address] [place] [address] Alkaline Phosphatase August 02, 2024 6:13am 81 U/L 38-126 [facility] [id number] [address] [place] [address] Lipase August 02, 2024 6:13am 95 U/L 23-300 [facility] [id number] [address] [place] [address] Cotinine March 06, 2024 2:52pm Negative [facility] [id number] [address] [place], [place] [address] Bedside Urine HCG, Qualitative August 02, 2024 7:24am Negative Negative Negative Telcor POC Urine Casts August 02, 2024 6:41am 0-2 [facility] [id number] [address] [place] [address] Add Urine Microanalysis August 02, 2024 6:41am Reviewed [facility] [id number] [address] [place] [address] Microbiology Results Procedure Source Result Collection Date/Time Result Date/Time Result Comment Performing Site Staphylococcus Screen Nasopharynx March 06, 2024 2:52pm March 09, 2024 7:24am [facility] Vital Signs Vital Reading Result Reference Range Collection Date/Time Height 65 [in_i] February 04 10:53am Weight 85.72 kg February 04 10:53am BMI (Body Mass Index) 31.4 kg/m2 February 05, 2024 10:53am Height 65 [in_i] March 06, 2024 1:56pm Weight 86.20 kg March 26, 2024 6:45am Body Temperature 97.8 [degF] 97.6-99.6 March 27, 2 024 8:00am Heart Rate 64 /min 60-100 March 27, 2024 8:00am Respiratory rate 16 /min 12-March 27, 2 024 8:00am Oxygen saturation by Pulse oximetry 100 % 90-100 March 27, 2024 8:00a m BP Systolic 104 mm[Hg] 100-140 March 27, 2024 8:00am BP Diastolic 58 mm[Hg] 60-90 March 27, 2024 8:00am BMI (Body Mass Index) 31.8 kg/m2 March 062023 1:56pm Inhaled oxygen flow rate 8 L/min Mar 11:15am Height 65 [in_i] April 08, 2024 1:20pm Weight 88.45 kg April 08, 2024 1:20pm BMI (Body Mass Index) 32.4 kg/m2 March 212023 1:20pm Height 65 [in_i] April 20, 2024 12:48pm Weight 90.71 kg April 20, 2024 12:48pm BMI (Body Mass Index) 33.3 kg/m2 April 202023 12:48pm Height 64.96 [in_i] May 06, 2024 7:57am Weight 88.45 kg May 06, 2024 7:57am BMI (Body Mass Index) 32.5 kg/m2 April 202023 7:57am Height 64.5 [in_i] May 27 12:57pm Weight 88.45 kg May 27 12:57pm BMI (Body Mass Index) 32.9 kg/m2 May 27, 2024 12:57pm Height 64.5 [in_i] June 29, 2024 2:12pm Weight 90.26 kg June 29, 2024 2:12pm BMI (Body Mass Index) 33.6 kg/m2 2023 2:12pm Height 64.5 [in_i] July 08, 2024 3:59pm Weight 91.62 kg July 08, 2024 3:59pm Heart Rate 80 /min 60-100 July 08, 2024 3:59pm Oxygen saturation by Pulse oximetry 98 % 90-100 July 08, 2024 3:59pm BP Systolic 110 mm[Hg] 100-140 July 08, 2024 3:59pm BP Diastolic 70 mm[Hg] 60-90 July 08, 2024 3:59pm BMI (Body Mass Index) 34.1 kg/m2 2023 3:59pm Weight 91.60 kg August 02, 024 2:00am Body Temperature 98.2 [degF] 97.6-99.6 July 2:00am Heart Rate 70 /min 60-100 August 02, 2 024 10:10am Respiratory rate 14 /min 12-20 July 10:10am Oxygen saturation by Pulse oximetry 100 % 90-100 August 02, 2024 1 0:10am BP Systolic 115 mm[Hg] 100-140 August 02, 2 024 10:10am BP Diastolic 71 mm[Hg] 60-90 August 02, 2 024 10:10am Advance Directives Advance Directive Response Recorded Date/ Time Current Advance Directive No March 262023 12:28pm Insurance Providers Guarantor Rebecca Pantoja Address [address] [place] [address] Contact Info. Home Phone: Payer Policy Id Coverage Id Subscriber's Name Subscriber Id Effective Date [facility]piration Date [facility] [id number] Rebecca Pantoja [id number] Self Pay Self N/A [facility] [id number] Rebecca Pantoja [id number] Encounters Encounter Location(s) Arrival/Admit Date Discharge/Depart Date Provider(s) Departed Physician/Provi fidencio Office Visit [facility] February 05, 2024 10:20am February 05, 2024 12:05pm Raulito Norton MD Departed [facility] Surgery March 06, 2024 1:41pm March 06, 2024 1:42pm Raulito Norton MD Departed [facility] Surgery March 26, 2024 12:42am March 27, 2024 11:47am Raulito Norton MD Departed Physician/Provi fidencio Office Visit [facility] April 08, 2024 12:41pm April 08, 2024 11:59pm Constantin Packer PA-C Departed Physician/Provi fidencio Office Visit [facility] April 20, 2024 12:42pm April 20, 2024 11:59pm Constantin Packer PA-C Discharged [facility] April 22, 2024 2:15pm April 22, 2024 4:58pm Raulito Norton MD Departed Physician/Provi fidencio Office Visit [facility] May 06, 2024 7:44am May 06, 2024 11:59pm Raulito Norton MD Departed Physician/Provi fidencio Office Visit [facility] May 27, 2024 12:52pm May 27, 2024 11:59pm Raulito Norton MD Departed [facility] Imaging May 27, 2024 1:43pm May 27, 2024 1:44pm Raulito Norton MD Departed Physician/Provi fidencio Office Visit [facility] June 29, 2024 1:43pm June 29, 2024 4:37pm Raulito Norton MD Departed Physician/Provi fidencio Office Visit [facility] July 08, 2024 3:45pm July 08, 2024 4:42pm Josefina Martin MD Departed Emergency [facility] Emergency Department August 02, 2024 1:55am August 02, 2024 12:00pm null Recent Diagnosis Onset Date Primary localized osteoarthritis of both knees Primary localized osteoarthritis of both knees History of total left knee replacement History of total left knee replacement History of total left knee replacement Lumbar radicular pain Primary osteoarthritis of right knee Generalized anxiety disorder Obesity (BMI 30-39.9) Major depression, recurrent, chronic Encounter for wellness examination Assessments Diagnosis Onset Date Resolution Status Primary localized osteoarthritis of both knees acute Primary localized osteoarthritis of both knees acute History of total left knee replacement acute History of total left knee replacement acute History of total left knee replacement acute Lumbar radicular pain acute Primary osteoarthritis of right knee acute Generalized anxiety disorder acute Obesity (BMI 30-39.9) acute Major depression, recurrent, chronic chronic Encounter for wellness examination noneactive Plan of Treatment Author Josefina Martin [facility] Authored July 08, 2024 4:28pm doing well on venlafaxine. L eft knee surgery successful. going to have right knee surgery 10/2024 hx of steffanie/bso, sees patient access specialist phq2:[id number] Mammogram 10/18/23 DEXA 05/24/20 normal Colonoscopy 12/04/22 polyp/repeat 5 years hep c 9.14.23 MR brain 3.7.24 normal Tdap 11/06/18 plan: -flu vaccine -Regular exercise. Healthy eating -Self skin exam -Immunizations: recommended flu/covid -Lab ordered -Mammogram ordered -Follow up one year /e time: 30 min phq2:0 plan doing well on effexor plan: continue effexor regular exercise, healthy diet perimenopausal component. doing well on effexor plan: continue effexor regular exercise healthy diet follow u 6 months bmi 34.1 had gastric balloon in place-removed plan lab ordered regular exercise healthy diet Author Constantin Packer [facility] Authored April 08, 2024 1:54 pm Patient is doing well post 2 weeks out left total knee arthroplasty. She will finish up her Eliquis and transition to the baby aspirin twice a day. At that time she can increase to meloxicam to twice a day. She will continue with her therapy and exercises at home. Overall she is making good progress. We will see her back in 2 weeks for re-evaluation. Author Raulito Norton [facility] Authored February 09, 2024 12: 44pm impression: Patient has rowdy re medial compartment osteoarthritis in both knees. Left knee bothers her the most. She has less than 1 mm medial compartment joint space narrowing both knees. She would like to proceed with left total knee arthroplasty and had a cortisone shot in the right the same time. Has failed extensive non operative treatment. I have discussed risks of surgery with her in detail. I explained to her that due to her young age, she is at increased risk for need for revision surgery due to aseptic loosening. She understands that she will be tested for her nicotine status 2 weeks before surgery must have no nicotine in her system for 6 weeks prior to surgery. I have explained that open numbness lateral to incision patient's have difficulty kneeling frequently and some patients will have chronic anterior knee soreness. Patient is with history of depression do tend to have a more difficult recovery after knee replacement. She is being treated and does take Effexor. Risk of infection was discussed. She is at some increased risk for infection a recent chronic smoker and we will plan to use extended oral antibiotic prophylaxis after surgery. She states that her teeth are fine and she just had dental work completed. I explained we want her to take antibiotics before dental work in the future to protect her knee replacement from infection. Risk of DVT was discussed. She has no personal or family history of DVT. I discussed my preference for Eliquis for 2 weeks followed by baby aspirin twice daily for 4 weeks after surgery for DVT prophylaxis. Risk of stiffness, instability, loosening, component wear and need for revision surgery was discussed. Risk of nerve injury fracture bleeding transfusion and medical complications edges were attack stroke pulmonary embolism and were reviewed. She understands wishes to proceed schedule this for her in the near future. She will avoid ibuprofen or Aleve for 1 week before surgery will skip dose of Zepbound during the 7 days before surgery. Patient did review the Ortho info handout that was provided to her previously and had no additional questions. Given her history of intolerance to Celebrex will plan to low-dose meloxicam after surgery for nonsteroidal anti-inflammatory component of her pain control regimen. 45 minutes were spent in total care this patient more than half this time spent in xiuq-hi-ufeu care. Author Raulito Norton [facility] Authored May 06, 2024 8:26 am Patient is doing very well f ollowing her left total knee replaced I would like her to continue spending 5 minutes every day working on stretching her knee into full flexion and full extension. I explained that if she does not do the some patients will lose range of motion and I would expect that if she does this she will reach 140?? of flexion which would be ideal. She will do this. She can stop her baby aspirin now. Patient would like to schedule right total knee arthroplasty in October of 2024. She would like to come back in 6 weeks for another cortisone shot of the right knee and we will schedule that. Author Constantin Packer [facility] Authored April 20, 2024 1:20p m Patient is a month out from left total knee arthroplasty. Overall she is doing well. I talked with her that it is not uncommon to see suture spits at the 4or 5 week pj. It is very benign looking today. She has a little bit of extension to gain so that she gets herself all the way out to 0. We talked about ways to obtain this special with the chair exercise. She also needs a slow her walking down. She has a very fast walker and when she got up start walking she had her knees both flexed when she walked which is going to be previous habit she had. She is going to have slow down her walking and concentrate so that when she walks she is walking with the knee fully extended. She has a minimal flexion contracture in the right knee of only about 3??. She will continue work hard on her extension. We will see her back in 2 weeks with x-rays of the knee. She will continue the meloxicam and aspirin until then. Future Tests Future scheduled test information is unavailable Pending Tests Test Name Ordered Date Scheduled Date Urine Culture August 02, 2024 6:41am MM screening urszula BI w lana July 08, 2024 4:00pm PT Treatment Clarification March 26, 2024 2:37pm March 26, 2024 2:37pm Future Visits Future appointment information is unavailable Referrals to Other Providers Reason for Referral Referral Start Date Provider Provider Contact Information Provider Address Raulito Norton MD Work Phone: [facility] [address] [facility] [address] Josefina Martin MD Work Phone: [address] [facility] [address] [facility] [address] Future Procedures Procedure Name Ordered Date Scheduled Date Outpatient Surgery Discharge March 27, 2024 7:32 am March 27, 2024 12:00am Outpatient Procedure/ Extend ed Recovery March 26, 2024 11:06am March 26, 2024 12:13pm Intraoperative Tourniquet, Place March 26, 2024 8:03am March 26, 2024 8:03am OT Treatment Clarification March 26, 2024 3:14pm March 26, 2024 3:14pm Urine Culture August 02, 2024 6:03am Octobe r 2023 6:41am Future Medications Future medication information is unavailable Patient Instructions Back Pain (AC) Back Pain (GEN) Back Pain in Older Children and Adolescents (GEN) Back Pain in Children (GEN) Anxiety (AC) Antibiotic Form Acute Nausea and Vomiting in Children (ED) Clear Liquid Diet (ED) Goals Acute Goals Author Authored Date Pt will Experience Minimal A nxiety Patient will Demonstrate/Verbalize Minimal Anxiety Prior to Surgery 1. Amboy Patient by Explaining Room & Equipment 2. Allow Patient to Verbalize and Answer Questions 3. Monitor Patient Comfort i.e. Provide Warm Blankets 4. Indicate Special Needs r/t Development Age 5. Provide Emotional Support and Reassuring Atmosphere 6. Describe Sequence of Events During Pre-Op Period 7. Confirm Written and Verbal Consent for Operative Procedure [facility] March 26, 2024 3:20pm Demonstrate/Verbalize Minima l Pain Pt will Demonstrate/Verbalize Minimal Pain to Surgical Intervention 1. Assess Location, Duration, and Intensity of Pain 2. Change Position as Allowed 3. Use Therapeutic Communication 4. Relay Complaints of Pain to Primary Nurse [facility] March 27, 2024 11:49am Remain free of complications *Maintains optimal gas exchange *Maintains fluid and electrolyte balance *Remains free of infection *Exhibits no s/s thrombophlebitis *Maintains optimal elimination patterns [facility] March 27, 2024 11:49am Remain free of complications * Performs physical activity within means - Increases participation in ADL's - Increases activity * Exhibits no s/s of thrombophlebitis * Performs exercise program as instructed [facility] March 27, 2024 11:49am *Improve Functional Mobility In order to achieve this outcome the patient will: *Improve bed mobility to independence *Improve transfers to independence *Improve gait to independent using least restrictive assistive device for 150 feet to meet home/community needs *Improve stair (1) ascending/descending to SBA using rails/least restrictive assistive device to meet home needs. *Improve balance to maximize independence with functional mobility * Improve endurance for functional mobility and ADL's [facility] March 27, 2024 11:49am *Achieve Optimal Muscle Stre ngth In order to achieve this outcome the patient will: * Patient will be able to perform 15 repetitions of the L TKA exercises independently [facility] March 27, 2024 11:49am *Achieve Optimal Range of Mo tion (ROM) In order to achieve this outcome the patient will: * Increase AROM to 0-115 degrees in affected knee(s) [facility] March 27, 2024 11:49am *Improved Safety Awareness In order to achieve this outcome the patient will: *Request help when needed *Demonstrate increased safety during ADL's *Demonstrate increased safety during functional mobility tasks [facility] March 27, 2024 11:49am Reduced risk of bleeding * Maintain lab work WNL * Exhibits no bruises/petechiae [facility] March 27, 2024 11:49am Develop pain management prog leonides In order to achieve this outcome the patient will: * Use the pain scale appropriately * Identify options for pain control - Analgesics - Narcotics - Non-medication measures [facility] March 27, 2024 11:49am Increase knowledge regarding pain mgmt *Demonstrates understanding of teaching [facility] March 27, 2024 11:49am Verbalizes/Demonstrates Unde rstanding *Demonstrates understanding of teaching [facility] March 27, 2024 11:49am *Understands knee rehabilita tion program In order to achieve this outcome the patient &/or caregiver will: * Demonstrate understanding of injury/disease * Demonstrate understanding of functional limitations * Demonstrate understanding of safety guidelines and precautions * Demonstate understanding of rehab process * Verbalize understanding of the importance of optimal knee ROM * Demonstrate understanding of exercises by accurate return demonstration without the need for re-instruction * Demonstrate independence with use of assistive device/equipment * Demonstrate understanding of care of the assistive device/equipment * Demonstrate good energy conservation techniques [facility] March 27, 2024 11:49am Participate in Discharge Karissa nning In order to achieve this outcome, the patient/ and or family will: * assist in identification of DME needs * assist in identification of community resource needs * assist in identification of appropriate discharge destination [facility] March 27, 2024 11:49am *Improved Functional ADLs In order to achieve this outcome the patient will: *Safely complete grooming tasks with independence (with/without) the use of adaptive equipment. *Safely complete bathing with independence (with/without) the use of adaptive equipment *Safely complete upper body dressing/undressing with independence (with/without) the use of adaptive equipment *Safely complete lower body dressing/undressing with independence (with/without) the use of adaptive equipment *Safely don/doff shoes and socks with independence (with/without) the use of adaptive equipment *Safely complete toileting with independence (with/without) adaptive equipment or durable medical equipment. [facility] March 27, 2024 11:49am Adapt to partial or total he aring loss * Learns optimal communication methods * Wears hearing aid [facility] March 27, 2024 11:49am Exhibit optimal tissue integ rity * Exhibits granulation/healing at site * Exhibits decreased drainage at site * Exhibits no s/s of infection * Exhibits a decrease in lesion size * Maintains nutritional status * Maintains hydration status * Maintains optimal lab values [facility] March 27, 2024 11:49am Remain free of injury *Follows Safety Interventions [facility] March 27, 2024 11:49am Adapt to partial or total vi ze loss * Uses corrective lenses * Performs ADL's * Uses safety measures [facility] March 27, 2024 11:49am Hospital Discharge Instructions Additional Instructions Clear liquid diet for the next few days. Zofran as needed for nausea control. Have close follow-up with your primary care physician. If you have any worsening symptoms then please call or return to the emergency department.
--- OUTSIDE RECORDS SUMMARY | 2024-10-28 20:58 | XMS_ITS | Clinical Summary ---
Author Organization [facility] Address [address] [place] [address]. [place] [address] [place] [address] Care Team Providers Care Dryerman/Woman Name Role Phone Josefina Martin MD Primary Care Provider [phone] [phone] Allergies Active Allergy Reactions Criticality Noted Date Comments Penicillins Hives,Swelling 01/21/2019 Medications ALPRAZolam 0.25 MG tablet Take 0.25 mg by mouth daily as needed for Anxiety. Active HYDROcodone-holly taminophen 5-325 MG tabletIndicatio ns:Acute Pain < 7 Day Supply Take 1-2 tablets by mouth every 6 (six) hours as needed for Pain. Indications: Acute Pain < 7 Day Supply 20 tablet 08/03/2020 Active Family History Medical History Relation Comments Diabetes Father Cancer Maternal Aunt BREAST Cancer Mother OVARIAN' Relation Status Comments Father Maternal Aunt Mother Social History Tobacco Use Types Packs/Day Years Used Date Smoking Tobacco: Former Cigarettes 1 12 1 - 07/26/2010 Smokeless Tobacco: Never Alcohol Use Standard Drinks/Week Comments Yes 0 (1 standard drink = 0.6 oz pur e alcohol) ONCE A MONTH Comments No Sex and Gender Information Value Date Recorded Sex Assigned at Not on file Legal Sex Female 3:49 PM CDT Gender Identity Not on file Sexual Orientation Not on file Last Filed Vital Signs Vital Sign Reading Time Taken Comments Blood Pressure 133/72 08/03/2020 1:20 PM CDT Pulse 70 08/03/2020 1:20 PM CDT Temperature 36.8 ??C (98.3 ??F) 08/03/2020 1:20 PM CD T Respiratory Rate 16 08/03/2020 1:20 PM CDT Oxygen Saturation 97% 08/03/2020 1:20 PM CDT Inhaled Oxygen Concentration - - Weight 91.4 kg (201 lb 8 oz) 08/03/2020 8:25 AM CDT Height 165.1 cm (5' 5 ) 08/03/2020 8:25 AM CDT Body Mass Index 33.53 08/03/2020 8:25 AM CDT Plan of Treatment Health Maintenance Due Date Last Done Comments Colorectal Cancer Screening Colonoscopy (10 Years) 1973 Annual Physical 02/05/1976 Hepatitis C 1991 DTaP, Tdap and Td Vaccines ( 1 - Tdap) 02/05/1992 Hepatitis B Vaccines (1 of 3 - 19+ 3-dose series) 02/05/1992 Mammogram Screening 07/06/2022 07/06/2020, 01/21/2019 Zoster Vaccines (1 of 2) 2023 COVID-19 Vaccine ( - 2023-2 5 season) 2024 Influenza Adult (#1) 2024 Meningococcal Vaccine Aged Out No janett brenda eligible based on patient's age to complete this topic Pneumococcal Vaccine: Pediatrics (0 to 5 Years) and At-Risk Patients (6 to 64 Years) Aged Out No longer eligible b ased on patient's age to complete this topic RSV Immunizations Under 20 Months Aged Out No longer eligible b ased on patient's age to complete this topic Procedures Procedure Name Priority Date/Time Associated Diagnosis Comments MG DIAGNOSTIC RT DIGI Routine 07/06/2020 3:21 PM CDT Breast calcification, right from Last 3 Months or Most Recently Relevant to Health Maintenance Results * MG DIAGNOSTIC RT DIGI (07/06/2020 3:21 PM CDT) Anatomical Region Laterality Modality Breast Right Mammography 07/06/2020 2:27 PM CDT Impressions 07/06/2020 2:29 PM CDT =====IMPRESSION:===== Post biopsy change lateral right breast. Adjacent residual punctate calcifications are possible. ASSESSMENT: Post procedure imaging for marker placement RECOMMENDATION: 1: Clinical management ??right COMMENTS: ? Narrative 07/06/2020 2:29 PM CDT EXAMINATION: Digital right diagnostic mammogram EXAM DATE/TIME: 07/06/2020 2:09 PM REASON FOR EXAM: ??POST BX ? Right breast calcifications COMPARISON: 06/16/2020 TECHNIQUE: Digital diagnostic mammography of the right breast was performed. This study was read with the assistance of a computer-aided detection system. TISSUE DENSITY: The breast tissue is heterogeneously dense. FINDINGS: New biopsy marker in the lateral right breast is seen. This is in the general location of targeted calcifications. Some air in this area is seen. Residual adjacent punctate calcifications are possible. us Neri Vna MD MAMMO Final Result from Last 3 Months or Most Recently Relevant to Health [place] [address] [facility] Care Teams Dryerman/Woman Relationship Specialty Start Date End Date Josefina Martin MD PCP - General FAMILY PRACTICE 01/20/19
--- OUTSIDE RECORDS SUMMARY | 2024-10-28 20:58 | XMS_ITS | Encounter Summary ---
Author Organization [facility] Address [address] [place] [address]. [place] [address] [place] [address] Care Team Providers Care Loan Expeditor Name Role Phone Josefina Martin MD Primary Care Provider [phone] Encounter Details Date Type Department Care Team (Late st Contact Info) Description 07/26/2020 Prep for Procedure [facility] Pre-Admission Testing [address] [place] [address] Neri Van MD [facility] [address] [address] Social History Tobacco Use Types Packs/Day Years [...] on file Sexual Orientation Not on file COVID-19 Exposure Response Date Recorded In the last month, have you been in contact with someone who was confirmed or suspected to have Coronavirus / COVID-19? No / Unsure 07/26/2020 3:11 PM CDT documented as of this encounter Plan of Treatment Not on file documented as of this encounter Results * PRE-SURGICAL/PRE-PROCEDURE CORONAVIRUS (COVID 19) (07/31/2020 9:50 AM CDT) CORONAVIRUS SARS COV 2 PCR (RESP) NOT DETECTED NOT DETECTED 08/01/2020 9:46 PM CDT [facility] Comment: A Not Detected (negative) test result for this test means that SARS- CoV-2 RNA was not present in the specimen above the limit of detection. A negative result does not rule out the possibility of COVID-19 and should not be used as the sole basis for treatment or patient management decisions. ??If COVID-19 is still suspected, based on exposure history together with other clinical findings, re-testing should be considered in consultation with public health authorities. Laboratory test results should always be considered in the context of clinical observations and epidemiological data in making a final diagnosis and patient management decisions. Please review the Fact Sheets and FDA authorized labeling available for health care providers and patients using the following websites: https://www.Mobile [employer].com/home/Covid-19/HCP/NAAT/fact-sheet2 https://www.[employer]/home/Covid-19/Patients/NAAT/ fact-sheet2 This test has been authorized by the FDA under an Emergency Use Authorization (EUA) for use by authorized laboratories. Due to the current public health emergency, [facility] is receiving a high volume of samples from a wide variety of swabs and media for COVID-19 testing. In order to serve patients during this public health crisis, samples from appropriate clinical sources are being tested. Negative test results derived from specimens received in non-commercially manufactured viral collection and transport media, or in media and sample collection kits not yet authorized by FDA for COVID-19 testing should be cautiously evaluated and the patient potentially subjected to extra precautions such as additional clinical monitoring, including collection of an additional specimen. Methodology: ??Nucleic Acid Amplification Test (NAAT) includes RT-PCR or TMA Additional information about COVID-19 can be found at the [facility] website: www.Tribzi.SoStupid.com/Covid19. Test performed at [facility] [employer] [id number] [place] [address] ??[phone] Director: JONATHAN FOWLER DO,MPH FIRST TEST YES 07/31/2020 2:30 PM CDT [facility] EMPLOYED IN HEALTHCARE NO 07/31/2020 2:30 PM CDT [facility] SYMPTOMATIC DEFINED BY CDC NO 07/31/2020 2:30 PM CDT [facility] DATE OF SYMPTOM ONSET NO 07/31/2020 3:57 PM CDT [facility] HOSPITALIZATION STATUS NO 07/31/2020 2:30 PM CDT [facility] PATIENT IN ICU NO 07/31/2020 2:30 PM CDT [facility] RESIDENT OF [facility] NO 07/31/2020 2:30 PM CDT [facility] NOT 07/31/2020 2:30 PM CDT [facility] PATIENT'S RACE WHITE OR 07/31/2020 2:30 PM CDT [facility] ETHNICITY NONHISPANIC 07/31/2020 2:30 PM CDT [facility] SOURCE (QST) NASOPHARYNGEAL SWAB 07/31/2020 2:30 PM CDT [facility] NASOPHARYNGEAL SWAB / Unknown 07/31/2020 9:50 AM CDT us Neri Van MD MICROBIOLOGY - GENERAL ORDERAB LES Final Result [facility] [address] [place] [address], [place] [phone] [place] [address], documented in this encounter Visit Diagnoses Diagnosis Preop examination- Primary Preoperative examination, unspecified documented in this encounter Additional Health Concerns Infection Onset Date Last Indicated Resolved Time COVID-19 Rule Out 07/31/2020 07/31/2020 08/01/2020 9:46 PM CDT documented as of this encounter Care Teams Loan Expeditor Relationship Specialty Start Date End Date Josefina Martin MD PCP - General FAMILY PRACTICE 01/20/19 documented as of this encounter
--- OUTSIDE RECORDS SUMMARY | 2024-10-28 20:58 | XMS_ITS | Encounter Summary ---
Author Organization [facility] Address [address] [place] [address]. [place], [place] [address] [place] [address] Care Team Providers Care Bath Mixer Name Role Phone Josefina Martin MD Primary Care Provider [phone] Encounter Details Date Type Department Care Team (Latest Contact Info) Description 07/06/2020 Travel Social History Tobacco Use Types Packs/Day Years Used Date Smoking Tobacco: Never Assessed Comments Unknown Sex and Gender Information Value Date Recorded Sex Assigned at Not on file Legal Sex Female 3:49 PM CDT Gender Identity Not on file Sexual Orientation Not on file COVID-19 Exposure Response Date Recorded In the last month, have you been in contact with someone who was confirmed or suspected to have Coronavirus / COVID-19? No / Unsure 07/06/2020 12:14 PM CDT documented as of this encounter Plan of Treatment Not on file documented as of this encounter Visit Diagnoses Not on filedocumented in this encounter Care Teams Bath Mixer Relationship Specialty Start Date End Date Josefina Martin MD PCP - General FAMILY PRACTICE 01/20/19 documented as of this encounter
--- OUTSIDE RECORDS SUMMARY | 2024-10-28 20:58 | XMS_ITS | Encounter Summary ---
Author Organization [facility] Address [address] [place] [address]. [place] [address] [place] [address] Care Team Providers Care Music Grapher Name Role Phone Josefina Martin MD Primary Care Provider [phone] Encounter Details Date Type Department Care Team (Latest Contact Info) Description 07/31/2020 10:10 AM CDT - 07/31/2020 11:59 PM CDT Hospital Encounter [facility] Laboratory [place] [id number] Neri Van MD [facility] [address] [id number] Discharge Disposition: Home or Self Care (Routine Discharge) Social History Tobacco Use Types Packs/Day Years [...] PM CDT documented as of this encounter Medications at Time of Discharge ALPRAZolam 0.25 MG tablet Take 0.25 mg by mouth daily as needed for Anxiety. HYDROcodone-aceta minophen 5-325 MG tabletIndications :Acute Pain < 7 Day Supply Take 1-2 tablets by mouth every 6 (six) hours as needed for Pain. Indications: Acute Pain < 7 Day Supply 20 tablet 08/03/2020 documented as of this encounter Plan of Treatment Not on file documented as of this encounter Procedures Procedure Name Priority Date/Time Associated Diagnosis Comments CORONAVIRUS (COVID 19) Routine 07/31/2020 9:50 AM CDT Preop examination documented in this encounter Results * PRE-SURGICAL/PRE-PROCEDURE CORONAVIRUS (COVID 19) (07/31/2020 9:50 AM CDT) CORONAVIRUS SARS COV 2 PCR (RESP) NOT DETECTED NOT DETECTED 08/01/2020 9:46 PM CDT [facility] Comment: A Not Detected (negative) test result [...] providers and patients using the following websites: https://www.[employer]/home/Covid-19/HCP/NAAT/fact-sheet2 https://www.[employer]/home/Covid-19/Patients/NAAT/ fact-sheet2 This test has been authorized by the FDA under an Emergency Use Authorization (EUA) for use by authorized laboratories. Due to the current public health emergency, [facility] is receiving a high volume of samples [...] about COVID-19 can be found at the [facility] website: www.[employer].com/Covid19. Test performed at [facility] [place] [address] [address] [facility] [place] ??[phone] Director: JONATHAN FOWLER DO,MPH FIRST TEST YES 07/31/2020 2:30 PM CDT [facility] EMPLOYED IN HEALTHCARE NO 07/31/2020 2:30 PM CDT [facility] SYMPTOMATIC DEFINED BY CDC NO 07/31/2020 2:30 PM CDT [facility] DATE OF SYMPTOM ONSET NO 07/31/2020 3:57 PM CDT [facility] HOSPITALIZATION STATUS NO 07/31/2020 2:30 PM CDT [facility] PATIENT IN ICU NO 07/31/2020 2:30 PM CDT [facility] RESIDENT OF [facility] CARE NO 07/31/2020 2:30 PM CDT [facility] NOT 07/31/2020 2:30 PM CDT [facility] PATIENT'S RACE WHITE OR 07/31/2020 2:30 PM CDT [facility] ETHNICITY NONHISPANIC 07/31/2020 2:30 PM CDT [facility] SOURCE (QST) NASOPHARYNGEAL SWAB 07/31/2020 2:30 PM CDT [facility] NASOPHARYNGEAL SWAB / Unknown 07/31/2020 9:50 AM CDT us Neri Van MD MICROBIOLOGY - GENERAL ORDERAB LES Final Result [facility] [address] [place] [address], [place] [phone] [facility] [address] [place] [address], documented in this encounter Visit Diagnoses Diagnosis Preop examination Preoperative examination, unspecified documented in this encounter Additional Health Concerns Infection Onset Date Last Indicated Resolved Time COVID-19 Rule Out 07/31/2020 07/31/2020 08/01/2020 9:46 PM CDT documented as of this encounter Care Teams Music Grapher Relationship Specialty Start Date End Date Josefina Martin MD PCP - General FAMILY PRACTICE 01/20/19 documented as of this encounter
--- OUTSIDE RECORDS SUMMARY | 2024-10-28 20:58 | XMS_ITS | Encounter Summary ---
Author Organization [facility] Address [address] [place] [address]. [place], [place] [address] [place] [id number] Care Team Providers Care Production Supervisor Trainee Name Role Phone Josefina Martin MD Primary Care Provider [phone] [phone] Encounter Details Date Type Department Care Team (Latest Contact Info) Description 08/03/2020 Travel Social History Tobacco Use Types Packs/Day [...] have Coronavirus / COVID-19? No / Unsure 08/03/2020 8:03 AM CDT documented as of this encounter Plan of Treatment Not on file documented as of this encounter Visit Diagnoses Not on filedocumented in this encounter Care Teams Production Supervisor Trainee Relationship Specialty Start Date End Date Josefina Martin MD PCP - General FAMILY PRACTICE 01/20/19 documented as of this encounter
--- OUTSIDE RECORDS SUMMARY | 2024-10-28 20:58 | XMS_ITS | Encounter Summary ---
Author Organization [facility] Address [address] [place] [address]. [place] [address] [place] [address] Care Team Providers Care Shoe Sprayer Name Role Phone Josefina Martin MD Primary Care Provider [phone] Reason for Visit * Auth/Cert Specialty Diagnoses / Procedures Referred By Jessica dejesus Referred To Contact Diagnoses ATYPICAL DUCTAL HYPERPLASIA Procedures WIDE EXCISION RIGHT BREAST BIOPSY SITE WITH PREOPERATIVE NEEDLE LOCALIZATION Referral ID Status Reason Start Date Expiration Date Visits Re quested Visits Authorized [id number] 1 1 Encounter Details Date Type Department Care Team (Late st Contact Info) Description 08/03/2020 10:26 AM CDT Anesthesia Event [facility] [place] [address] Steve Ibarra MD 1 [place] [phone] [phone] (Work) Kiley Morrison FNP [address] [place] [address] Anesthesia Record Procedure Summary Procedure Name Responsible Anesthesiologist Anesthesia Start Time Anesthesia Stop Time WIDE EXCISION RIGHT BREAST BIOPSY SITE WITH PREOPERATIVE NEEDLE LOCALIZATION (Right: Breast) Steve Ibarra MD 08/03/20 1026 08/03/20 1147 Events Date Time Event Comment 08/03/2020 0857 0857 AN Anesthesia Prepped 1011 AN DATA PROCESSING CONSULTANT Prepped 1026 An Start Patient ID and consent checked and patient reassessed. 1027 An Start Data 1029 Preoxygenation 1031 An Induction 1033 An LMA 1034 Anesthesia Ready 1135 LMA Removed 1136 An Emergence 1139 Face Mask Applied 1141 an stop data 1147 Post Anesthetic Care Handoff I completed my handoff to the receiving nurse during which we: 1. Identified the patient 2. Identified the responsible provider 3. Reviewed the pertinent medical history 4. Discussed the surgical course 5. Reviewed intra-op anesthesia management and issues during anesthesia 6. Set expectations for post-procedure period 7. Allowed opportunity for questions and acknowledgement of understanding. 1147 An Stop Meds Name Total propofol (DIPRIVAN) 200 mg/20 mL injecti on 200 mg lidocaine (PF) (XYLOCAINE) 2% injection 50 mg fentaNYL (SUBLIMAZE) 100 mcg/2 mL inject ion 100 mcg midazolam 2 mg/2 mL injection 2 mg levoFLOXacin (LEVAQUIN) IVPB 500 mg 500 mg lactated ringers infusion 600 mL * Agents Name O2 N2O Air Inspired Sevoflurane Sevoflurane * Blood No blood administrations on file. Lines, Drains, and Airways Type Details Placement Removal Peripheral IV Placement Date: 07/21 02/07; Placement Time: 0840; Placed Outside of This Facility?: No; Size: 20 G; Orientation: Left; Location: Wrist; Site Prep: Chlorhexidine; Insertion attempts: 2; Patient Tolerance: Tolerated well 08/03/20 0840 by Miriam Marie RN Supraglottic Airway Placement Date: 07/21 02/07; Placement Time: 1033; Airway Device: LMA; LMA Size: 4; Placed By: Other (Comment) (Tami Barajas, DEON); Style: Other (i gel); Insertion Attempts:1; Placement Verified By: Capnography, Chest Rise; Extubation Assessment: Tolerated well, Patient spontaneously breathing, Atraumatic; Removal Date: 08/03/20; Removal Time: 1135; Removal Person: DATA PROCESSING CONSULTANT; Removal Reason: End of Case 08/03/20 1033 by Nigel Kruger CRNA 08/03/20 1135 by Nigel Kruger CRNA Surgical/Incision 08/03/20; 1055; Surg ical Wound; Breast; Right; TAPE MEDIPORE 2 (x1); sutures, dermabond, 4x4s, medipore tape, Jobst bra; 08/03/20; 1525 08/03/20 1055 by Soheila Amaro RN 08/03/20 1525 by Automatic Discharge Provider Supraglottic Airway Placement Date: 07/21 02/07; Placement Time: 113; Airway Device: Oral pharyngeal airway; Removal Date: 08/03/20; Removal Time: 1140 08/03/20 1135 by Nigel Kruger CRNA 08/03/20 1140 by Nigel Kruger CRNA documented in this encounter Social History Tobacco Use Types Packs/Day Years [...] AM CDT documented as of this encounter OR Notes * Anesthesia Postprocedure Evaluation - Steve Ibarra MD - 08/03/2020 3:26 PM CDT Anesthesia Post-op Note Rebecca Pantoja Procedure(s): WIDE EXCISION RIGHT BREAST BIOPSY SITE WITH PREOPERATIVE NEEDLE LOCALIZATION (Right Breast) Anesthesia type: general Vitals: 08/03/20 1320 BP: 133/72 Vitals: 08/03/20 1320 Pulse: 70 Vitals: 08/03/20 1320 Resp: 16 Vitals: 08/03/20 1320 Temp: 36.8 ??C Vitals: 08/03/20 1320 SpO2: 97% Patient Location: Phase II/Outpatient Level of Consciousness: awake, alert and oriented Pain Management: adequate analgesia Airway Patency: patent Respiratory Status: spontaneous ventilation, nonlabored ventilation and room air Cardiovascular Status: hemodynamically stable Post-Op Nausea: none Postoperative Hydration: euvolemic Complications: no anesthesia complication * Anesthesia Postprocedure Evaluation - Steve Ibarra MD - 08/03/2020 12:24 PM CDT Anesthesia Post-op Note Rebecca Pantoja Procedure(s): WIDE EXCISION RIGHT BREAST BIOPSY SITE WITH PREOPERATIVE NEEDLE LOCALIZATION (Right Breast) Anesthesia type: general Vitals: 08/03/20 1200 BP: 101/53 Vitals: 08/03/20 1200 Pulse: 74 Vitals: 08/03/20 1200 Resp: 15 Vitals: 08/03/20 1144 Temp: 36.4 ??C Vitals: 08/03/20 1200 SpO2: 97% Patient Location: PACU Level of Consciousness: awake, alert and oriented Pain Management: adequate analgesia Airway Patency: patent Respiratory Status: spontaneous ventilation, nonlabored ventilation, unassisted and acceptable Cardiovascular Status: hemodynamically stable Post-Op Nausea: none Postoperative Hydration: euvolemic Complications: no anesthesia complication * Anesthesia Preprocedure Evaluation - Steve Ibarra MD - 08/03/2020 7:15 AM CDT Anesthesia ROS/MED History Reviewed: Patient summary , Nursing notes , Family history anesthesia, Anesthesia history , Medications , Labs , Unchecked boxes are not applicable Pre-Anesthetic State: alert, awake and responds appropriately Pulmonary neg pulmonary ROS Cardiovascular neg cardio ROS Exercise tolerance:good Neuro/Psych neg neuro/psych ROS GI/Hepatic/Renal neg GI/hepatic/renal ROS Endo/Other (+) obese GENERAL COMMENTS Past Medical History: No date: Anxiety No date: Obesity No date: Wears glasses Physical Evaluation Airway Mallampati: II TM Distance: >3 FB Neck ROM: normal Dental No notable dental history Pulmonary Pulmonary exam normal Breath sounds clear to auscultation Cardiovascular Rhythm: regular Rate: normal Cardiovascular exam normal Anesthesia Plan ASA 1 Intravenous Induction Anesthesia type: general Discussed potential risks of General Anesthesia including but not limited to corneal abrasion, visual impairment or visual loss, mouth injury, dental damage, sore throat, hoarseness, esophageal injury, awareness under anesthesia, nerve injury due to positioning, aspiration, pneumonia, stroke, cardiac event, adverse drug reactions and . Informed Consent Anesthetic plan and risks discussed with patient of whom consent was obtained. . documented in this encounter Plan of Treatment Not on file documented as of this encounter Visit Diagnoses Not on filedocumented in this encounter Administered Medications Inactive Administered Medications - up to 3 most recent administrations Medication Order MAR Action Action Date Dose Rate Site fentaNYL (SUBLIMAZE) injection PRN, Starting on Sat08/03/20 at 1044, Until Sat08/03/20 at 1147, Anesthesia Intra-Op Given 08/03/2020 11:47 AM CDT 25 mcg Given 08/03/2020 11:33 AM CDT 25 mcg Given 08/03/2020 10:50 AM CDT 25 mcg levoFLOXacin (LEVAQUIN) IVPB 500 mg 500 mg, Intravenous, at 100 mL/hr, Once, 1 dose, On Sat08/03/20 at 0830, Pre-Op Given 08/03/2020 10:36 AM CDT 500 m g lidocaine (PF) (XYLOCAINE) 2 % injection PRN, Starting on Sat08/03/20 at 1031, Until Sat08/03/20 at 1147, Anesthesia Intra-Op Given 08/03/2020 10:31 AM CDT 5 0 mg midazolam (VERSED) injection PRN, Starting on Sat08/03/20 at 1022, Until Sat08/03/20 at 1147, Anesthesia Intra-Op Given 08/03/2020 10:22 AM CDT 2 mg propofol (DIPRIVAN) IV bolus PRN, Starting on Sat08/03/20 at 1031, Until Sat08/03/20 at 1147, Anesthesia Intra-Op Given 08/03/2020 10:47 AM CDT 2 0 mg Given 08/03/2020 10:31 AM CDT 180 mg documented in this encounter Care Teams Shoe Sprayer Relationship Specialty Start Date End Date Josefina Martin MD PCP - General FAMILY PRACTICE 01/20/19 documented as of this encounter
--- OUTSIDE RECORDS SUMMARY | 2024-10-28 20:58 | XMS_ITS | Encounter Summary ---
Author Organization [facility] Address [address] [place] [address]. [place] [address] [place] [address] Care Team Providers Care Medical Imaging Technologist Name Role Phone Josefina Martin MD Primary Care Provider [phone] Reason for Visit * Imaging (Routine) - Closed Specialty Diagnoses / Procedures Referred By Jessica t Referred To Contact RADIOLOGY Diagnoses Breast calcification, right Procedures MG STEREO CORE BX RT Rachel Nunez MD [address] [place] [address] Phone: tel: fax: Referral ID Status Reason Start Date Expiration Date Visits Re quested Visits Authorized [id number] Closed 06/30/2020 07/30/2021 1 1 Encounter Details Date Type Department Care Team (Latest Contact Info) Description 07/06/2020 12:17 PM CDT - 07/06/2020 11:59 PM CDT Hospital Encounter [facility] Mammography [address] [place], [place] [id number] Rachel Van MD [address] [place] [phone] Discharge Disposition: Home or Self Care (Routine [...] PM CDT documented as of this encounter H&P Notes * Rachel Van MD - 07/06/2020 12:00 AM CDT HISTORY OF PRESENT: Rebecca Pantoja, date of 1975, is a 45-year-old patient who presents for a right stereotactic breast biopsy with clip placement. Patient had recent mammograms and a left breast ultrasound performed. The conclusion of these studies was the presence of: 1. Right breast, group of fine pleomorphic calcifications in the middle third of the outer breast 9o'clock position, 7 cm from the nipple. 2. Left breast, 6-7 mm probable complicated cyst, on ultrasonography, 5 o'clock position, 4 cm fromthe nipple, with recommendations for followup films in 6 months. Patient's clinical review of systems of her breast is completely negative. Patient had a right Mammotome breast biopsy on 01/21/2019 with benign pathology. I had a detailed discussion with the patient reviewing all above data, differential diagnosis, options, the pros and cons of each approach, and the details, risks, benefits, recovery and rationale ofthe planned procedure. She wishes to proceed with a right stereotactic breast biopsy with clip placement, check pathology and further plans to follow. She also wishes to proceed with followup left breast films in 6 months' time. Please see my office chart sheet for further details of the preop discussion held with the patient. PAST MEDICAL HISTORY: 1. Right breast category 4 upper outer quadrant calcifications as above outlined. 2. Left breast probable cyst as above discussed. 3. Status post right Mammotome breast biopsy with benign results back on 01/21/2019. MEDICATIONS: None. PAST SURGICAL HISTORY: 1. Cholecystectomy. 2. Knee surgery. 3. Right Mammotome breast biopsy in 2019 as above noted. 4. Recent total abdominal hysterectomy and bilateral salpingo-oophorectomy - no cancer. ALLERGIES: PENICILLIN CAUSES SWELLING AND RASH. FAMILY HISTORY: Positive for heart disease, diabetes, cancer, mother with ovarian cancer, and breast cancer. SOCIAL HISTORY: Patient quit smoking cigarettes 9 years ago. She does not drink alcohol. 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 Age of first 18 years old. Patient's mother with diagnosis of ovarian cancer at age 39. REVIEW OF SYSTEMS: For other review of systems, please see my office chart sheet for further details. PHYSICAL EXAMINATION: 5 feet 5 inches, 193 pounds, BMI 32.1. Vital Signs: Stable and afebrile - seechart for further details. Patient is awake, alert and oriented. She moves all of her extremities well. Her gross motor exam throughout is normal. Her mood, judgment and affect are all normal. She isvery pleasant, appears well-developed and well-nourished. She is in no acute distress. There is no palpable neck or supraclavicular lymphadenopathy. Trachea is in the midline. Thyroid is not grossly enlarged. Pupils equal and round. Sclerae are nonicteric. Chest is clear with normal respiratory effort. Heart: Regular rate and rhythm. Extremities: Warm, pink. Abdomen: Soft. Flat. Nontender. No palpable masses or organomegaly. Bilateral breast exam: Normal. Bilateral axillary exam: Normal. Patient has a well-healed Pfannenstiel scar. IMPRESSION: Right breast, category 4, middle one-third of upper outer quadrant, 9 o'clock position,7 cm from the nipple, pleomorphic calcifications. PLAN: The patient requests right stereotactic breast biopsy with clip placement, check pathology and further plans to follow. She understands and agrees. Procedure is scheduled for Monday, July 06, 2020. #[id number] /[id number] A copy of this report has been sent to: JOSEFINA MARTIN MD documented in this encounter OR Notes * Op Note - Rachel Van MD - 07/06/2020 12:00 AM CDT PREOPERATIVE DIAGNOSIS: Category 4 calcifications, outer right breast, middle 3rd, 9 o'clock position, 7 cm from the nipple. POSTOPERATIVE DIAGNOSIS: Category 4 calcifications, outer right breast, middle 3rd, 9 o'clock position, 7 cm from the nipple. PROCEDURE PERFORMED: Right stereotactic breast biopsy with clip placement (cylinder clip), see operative note. SURGEON: Rachel Van MD MINER ASSISTANT: conveyor technician. ANESTHESIA: Xylocaine 1%. OPERATIVE FINDINGS AND PROCEDURE PERFORMED: I met the patient in the ultrasound room. Her right mammograms were reviewed. There was a cluster of very thin calcifications as above outlined. These calcifications were marked by the radiologist. The planned procedure, post-biopsy instructions, and expectations were reviewed with the patient, who understood and agreed. Patient was placed on the stereotactic table. Proper timeout procedures were accomplished. The right breast was imaged. The calcifications in question were identified. They were very faint. They were in the outer breast, middle 3rd, 9 o'clock position, 7 cm from the nipple,right breast. These were the calcifications in question. The right breast was prepared in the usualsterile fashion. Xylocaine 1% was infiltrated down to and around the targeted area after the calcifications had been identified and coordinates obtained. A small incision was made and the stereotactic needle inserted into the right breast following the stereotactic coordinates. Both pre and post-fire images were taken. Specimens were retrieved. First specimen image showed no obvious calcifications. We advanced the needle slightly, as it appeared that the calcifications were near the tip of the needle. We obtained a second specimen in the usual fashion. Specimen imaging showed no obvious calcifications. The stereotactic needle was removed. Pressure was held. There was no gross bleeding. Hemostasis waspresent. The patient appeared to have a small hematoma under the area. New coordinates were obtained. Then, the needle was inserted following the stereotactic coordinates. Pre and post-fire images were taken. On the third specimen, the calcifications were successfully biopsied and present within the biopsy specimen. The stereotactic needle was removed. A cylinder clip was placed at the conclusion of the procedure.The clip soil field technician was removed. There was no bleeding or hematoma. Steri-Strips were placed. Two-view mammogram showed that the majority of these calcifications have been resected. There was probably few residual calcifications around the biopsy cavity. The clip was in the proper position. These films were reviewed with the radiologist. All this was discussed with the patient, who understood and agreed. She was doing quite well. Instructions were given in detail. She knows to call the office in a couple working days' time for pathology results. She left the breast center in good condition after all of her questions were answered. INTRAVENOUS FLUIDS: None. PACKS: None. EXTERNAL BLOOD LOSS: Minimal. #[id number] /NTS documented in this encounter Plan of Treatment Not on file documented as of this encounter Procedures Procedure Name Priority Date/Time Associated Diagnosis Comments PATHOLOGY Routine 07/06/2020 12:00 AM CDT Breast calcifications documented in this encounter Results * Pathology (07/06/2020 12:00 AM CDT) COPATH REPORT ? [facility] ? [address] [facility] ? [place], [place] ??[address] ? [phone] ? Department of Pathology ? Pathology Report ? SURGICAL FINAL REPORT Patient Name: REBECCA PANTOJA ? : 1975 (Age: 45) ? Location: [facility] Gender: F ?Collected Date: 07/06/2020 Med Rec #: [id number] ?Date Received: 07/06/2020 Date Reported: 07/08/2020 Provider: RACHEL VAN MD ?JOSEFINA MARTIN Specimen(s) Breast biopsy, right, calcifications, cylinder clip Final Pathologic Diagnosis BREAST, RIGHT, CALCIFICATIONS, BIOPSY: ? ATYPICAL DUCTAL HYPERPLASIA WITH ASSOCIATED CALCIFICATIONS ? MICROCYSTS WITH ASSOCIATED CALCIFICATIONS ? FAT NECROSIS Electronically Signed Out ? BONY BAILEY MD Pathologist SMO:marcus Microscopic Description: Microscopic examination shows a focal collection of ducts with cribriform architecture and mild cytologic atypia. ??The cells are diffusely positive for ER and OR. ??This focus measures less than 0.2 cm in greatest dimension. ??Due to the small size, the finding is consistent with atypical ductal hyperplasia. This case underwent intradepartmental review. IHC control slides stained appropriately. Clinical History Right breast calcifications Gross Description The specimen is received fresh at 1415 on 07/06/2020, and is labeled with the patient's name (Rebecca Pantoja), (1975), and right breast calcifications cylinder clip. ??The specimen is received on a blue, plastic tray utilizing the clock face orientation, and consists of a 7 x 3 x 1 cm aggregate of numerous bright yellow-white to pink, rubbery, lobulated, fibrofatty, focally hemorrhagic tissue cores of breast parenchyma. ??The specimen is accompanied by a radiograph copy designating diffuse fibrous densities and two focal, punctate clusters of calcifications that correspond with 6-9:00 and 9-12:00 on the grid. The specimen is also accompanied by three portions of biopsy instrumentation that have been placed along the 3-6:00 position. The tissue cores and tissue core fragments range from 0.4 to 2.3 cm in length x 0.3 cm in average diameter. The specimen is divided into four quadrants and is entirely submitted sequentially, as follows: 1-2. ?? 12-3:00 3-4. ?? 3-6:00 5-6. ?? 6-9:00 (to display calcifications) 7-8. ?? 9-12:00 (to display calcifications) The tissue was fixed in 10% formalin between 6 and 72 hours prior to processing. :[employer] Billing Fee Code(s): 52422, 47900(2) [facility] 07/06/2020 07/06/2020 10: 54 AM CDT Comment:BREAST BIOPSY, RIGHT , CALCIFICATIONS, CYLINDER CLIP us Rachel Van MD PATHOLOGY/CYTOLOGY ORDERABLES Final Result [facility] [address] [place] [address], documented in this encounter Visit Diagnoses Diagnosis Breast calcifications- Primary Other (abnormal) findings on radiological examination of breast documented in this encounter Administered Medications Inactive Administered Medications - up to 3 most recent administrations Medication Order MAR Action Action Date Dose Rate Site lidocaine-EPINEPHrine 1 %-1:[id number] injection 20 mL 20 mL, Intradermal, Once, 1 dose, On Sat07/06/20 at 1430 Given by Other 07/06/2020 1:35 PM CDT 20 mLs Right Breast sodium chloride 0.9 % irrigation 250 mL 250 mL, Irrigation, Continuous, Starting on Sat07/06/20 at 1430, Until Sat07/08/20 at 0246 New Bag 07/06/2020 1:35 PM CDT 250 mLs Right Breast documented in this encounter Care Teams Medical Imaging Technologist Relationship Specialty Start Date End Date Josefina Martin MD PCP - General FAMILY PRACTICE 01/20/19 documented as of this encounter
--- OUTSIDE RECORDS SUMMARY | 2024-10-28 20:58 | XMS_ITS | Encounter Summary ---
Author Organization [facility] Address [address] [place] [address]. [place] [address] [place] [address] Care Team Providers Care Entrepreneurship Program Director Name Role Phone Josefina Martin MD Primary Care Provider [phone] Reason for Visit * Auth/Cert Specialty Diagnoses / Procedures Referred By Jessica dejesus Referred To Contact Diagnoses ATYPICAL DUCTAL HYPERPLASIA Procedures WIDE EXCISION RIGHT BREAST BIOPSY SITE WITH PREOPERATIVE NEEDLE LOCALIZATION Referral ID Status Reason Start Date Expiration Date Visits Re quested Visits Authorized [id number] 1 1 Encounter Details Date Type Department Care Team (Latest Contact Info) Description 08/03/2020 8:03 AM CDT - 08/03/2020 1:24 PM CDT Hospital Encounter [facility] [place], [place] [id number] Rachel Van MD [address] [place] [id number] Discharge Disposition: Home or Self Care [...] AM CDT documented as of this encounter Last Filed Vital Signs Vital Sign Reading [...] Mass Index 33.53 08/03/2020 8:25 AM CDT documented in this encounter Discharge Instructions * Discharge Instructions* Lawanda Jones RN - 08/03/2020 12:43 PM CDT I did not order the patient's home medications. The patient should follow the instructions for these home medications from the ordering physician and NOT from any information provided to them today on these documents. Discharge to home. Up as tolerated. Diet as tolerated. No lifting for 3 days. No driving today. May drive tomorrow. [place] script. May us Motrin or equivalent as needed as directed. Wear bra. May shower tomorrow. Ice pack as needed in 20 minute intervals, 20 minutes on, 20 minutes off be sure to use a barrier between skin and ice pack. - After hours exchange for Dr. Van [phone] DERMABOND/MEDICAL GLUE INSTRUCTIONS Keep incision dry. No tub bathes, hot tubs, or swimming. No ointments on incision. Let glue flake off on its own, do not pick at glue. Because you had anesthesia, we suggest these things: -Avoid greasy, fried or spicy foods for today -Take medication with food -Take an over the counter stool softener if needed for constipation while taking pain medication -Have a responsible adult stay with you the rest of today and overnight -No alcohol, driving, making major decision or operating machinery for 24 hours or while taking pain medication If you have chest pain, shortness of breath, calf pain, excessive bleeding or drainage, if you cannot hold down anything to eat or drink, or if you cannot urinate, please call 911 or go to the nearest emergency room. If you have fever, pain not controlled by your medication, signs of infection such as redness or discharge or swelling at the site, or any other questions or concerns, please call your surgeon. * Attachments The following attachments cannot be sent through Care Everywhere. * Hydrocodone and Acetaminophen, ADULT (Italian) * General Anesthesia Discharge Instructions (Italian) * Breast Biopsy Discharge Instructions (Italian) documented in this encounter Medications at Time of Discharge ALPRAZolam 0.25 MG tablet Take 0.25 mg by mouth daily as needed for Anxiety. HYDROcodone-aceta minophen 5-325 MG tabletIndications :Acute Pain < 7 Day Supply Take 1-2 tablets by mouth every 6 (six) hours as needed for Pain. Indications: Acute Pain < 7 Day Supply 20 tablet 08/03/2020 documented as of this encounter H&P Notes * Rachel Van MD - 08/03/2020 10:00 AM CDT HISTORY AND PHYSICAL INTERVAL NOTE: I have reviewed Rebecca Knowles History & Physical which was performed within the past 30 days. After examining Rebecca Shell Knowles, no change has occurred in the patient's condition since the H&P was completed. Informed Consent Discussion: Risks, benefits, alternatives as well as the consequences of not performing the surgery/procedure were discussed with the patient and/or family/personal sales representative graphic art. Questions were answered and the patient/family/personal sales representative graphic art verbalized understanding and desires to proceed. Source Note - Rachel Van MD - 08/03/2020 12:00 AM CDT Rebecca Knowles, date of of 1975, is a 45-year-old patient who presents for wide excision of a right breast biopsy site with preoperative needle localization. Patient had a right stereotactic breast biopsy, on 07/06/2020, for a group of fine pleomorphic calcifications in the middle third of the outer right breast, 9 o'clock position, 7 cm from the nipple. A cylinder clip was placed at the biopsy site. The pathology showed atypical ductal hyperplasia with associated calcifications, microcysts with associated microcalcifications, and fat necrosis. I had a detailed discussion with Rebecca reviewing these pathology results, the association between atypical ductal hyperplasia on a minimally invasive biopsy and the presence of possible microscopic breast cancer at that area, all options available, and recommendations for wide excision of right breast biopsy site with preoperative needle localization, check pathology and further plans to follow. I answered her questions. She demonstrated an understanding to this discussion and wishes to proceed with surgery, accepting the involved risks. Please see my office chart sheet for further details of this preop discussion held with the patient. She understands and agrees. Procedure is scheduled for Monday, August 03, 2020. PAST MEDICAL HISTORY: 1. Recent right breast stereotactic biopsy, category 4 calcifications, middle third outer breast, 9o'clock position, 7 cm from the nipple with pathology showing atypical ductal hyperplasia. 2. Left breast probable cysts. 3. Status post right Mammotome breast biopsy with benign results back on 01/21/2019. 4. Patient denies any other known medical problems. MEDICATIONS: None. PAST SURGICAL HISTORY: 1. Cholecystectomy. 2. Knee surgery. 3. Right Mammotome breast biopsy in 2019. 4. Recent total abdominal hysterectomy with bilateral salpingo-oophorectomy - no cancer. 5. Right stereotactic breast biopsy recently as above noted. ALLERGIES: PENICILLIN CAUSES SWELLING AND RASH. FAMILY HISTORY: Positive for heart disease, diabetes, cancer, mother with ovarian cancer, and breast cancer. SOCIAL HISTORY: Patient quit smoking cigarettes 9 years ago. She does not drink alcohol. 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 Age of first 18 years old. Patient's mother with diagnosis of ovarian cancer at age 39. REVIEW OF SYSTEMS: Otherwise negative and please see my office chart sheet for further details. PHYSICAL EXAMINATION: Five feet 5 inches tall, 193 pounds, BMI 23.1. Vital Signs: Stable and afebrile - see chart for further details. Patient is awake, alert and oriented. She moves all of her extremities well. Her gross motor exam throughout is normal. Her mood, judgment and affect are all normal. She is very pleasant, appears well-developed and well-nourished. She is in no acute distress. There is no palpable neck or supraclavicular lymphadenopathy. Trachea is in the midline. Thyroid is not grossly enlarged. Pupils equal and round. Sclerae are nonicteric. Chest is clear with normal respiratory effort. Heart: Regular rate and rhythm. Extremities: Warm, pink. Abdomen: Soft. Flat. Nontender. No palpable masses or organomegaly. Bilateral Breast Exam: Normal. Bilateral Axillary Exam: Normal. To note, the patient has a well-healed lower Pfannenstiel abdominal scar. IMPRESSION: Right breast, category 4, middle one-third of upper outer quadrant, 9 o'clock position,7 cm from the nipple, pleomorphic microcalcifications with stereotactic breast biopsy showing atypical ductal hyperplasia. PLAN: The patient requests wide excision of right breast biopsy site with preoperative needle localization, check pathology and further plans to follow. She understands and agrees. Procedure is scheduled for Monday, August 03, 2020. #[id number] /NTS * Rachel Van MD - 08/03/2020 8:17 AM CDT HISTORY AND PHYSICAL INTERVAL NOTE: I have reviewed Rebecca Knowles History & Physical which was performed within the past 30 days. After examining Rebecca Dempseyalenaraf, no change has occurred in the patient's condition since the H&P was completed. Informed Consent Discussion: Risks, benefits, alternatives as well as the consequences of not performing the surgery/procedure were discussed with the patient and/or family/personal sales representative graphic art. Questions were answered and the patient/family/personal sales representative graphic art verbalized understanding and desires to proceed. Source Note - Rachel Van MD - 08/03/2020 12:00 AM CDT Rebecca Knowles, date of of 1975, is a 45-year-old patient who presents for wide excision of a right breast biopsy site with preoperative needle localization. Patient had a right stereotactic breast biopsy, on 07/06/2020, for a group of fine pleomorphic calcifications in the middle third of the outer right breast, 9 o'clock position, 7 cm from the nipple. A cylinder clip was placed at the biopsy site. The pathology showed atypical ductal hyperplasia with associated calcifications, microcysts with associated microcalcifications, and fat necrosis. I had a detailed discussion with Rebecca reviewing these pathology results, the association between atypical ductal hyperplasia on a minimally invasive biopsy and the presence of possible microscopic breast cancer at that area, all options available, and recommendations for wide excision of right breast biopsy site with preoperative needle localization, check pathology and further plans to follow. I answered her questions. She demonstrated an understanding to this discussion and wishes to proceed with surgery, accepting the involved risks. Please see my office chart sheet for further details of this preop discussion held with the patient. She understands and agrees. Procedure is scheduled for Monday, August 03, 2020. PAST MEDICAL HISTORY: 1. Recent right breast stereotactic biopsy, category 4 calcifications, middle third outer breast, 9o'clock position, 7 cm from the nipple with pathology showing atypical ductal hyperplasia. 2. Left breast probable cysts. 3. Status post right Mammotome breast biopsy with benign results back on 01/21/2019. 4. Patient denies any other known medical problems. MEDICATIONS: None. PAST SURGICAL HISTORY: 1. Cholecystectomy. 2. Knee surgery. 3. Right Mammotome breast biopsy in 2019. 4. Recent total abdominal hysterectomy with bilateral salpingo-oophorectomy - no cancer. 5. Right stereotactic breast biopsy recently as above noted. ALLERGIES: PENICILLIN CAUSES SWELLING AND RASH. FAMILY HISTORY: Positive for heart disease, diabetes, cancer, mother with ovarian cancer, and breast cancer. SOCIAL HISTORY: Patient quit smoking cigarettes 9 years ago. She does not drink alcohol. 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 Age of first 18 years old. Patient's mother with diagnosis of ovarian cancer at age 39. REVIEW OF SYSTEMS: Otherwise negative and please see my office chart sheet for further details. PHYSICAL EXAMINATION: Five feet 5 inches tall, 193 pounds, BMI 23.1. Vital Signs: Stable and afebrile - see chart for further details. Patient is awake, alert and oriented. She moves all of her extremities well. Her gross motor exam throughout is normal. Her mood, judgment and affect are all normal. She is very pleasant, appears well-developed and well-nourished. She is in no acute distress. There is no palpable neck or supraclavicular lymphadenopathy. Trachea is in the midline. Thyroid is not grossly enlarged. Pupils equal and round. Sclerae are nonicteric. Chest is clear with normal respiratory effort. Heart: Regular rate and rhythm. Extremities: Warm, pink. Abdomen: Soft. Flat. Nontender. No palpable masses or organomegaly. Bilateral Breast Exam: Normal. Bilateral Axillary Exam: Normal. To note, the patient has a well-healed lower Pfannenstiel abdominal scar. IMPRESSION: Right breast, category 4, middle one-third of upper outer quadrant, 9 o'clock position,7 cm from the nipple, pleomorphic microcalcifications with stereotactic breast biopsy showing atypical ductal hyperplasia. PLAN: The patient requests wide excision of right breast biopsy site with preoperative needle localization, check pathology and further plans to follow. She understands and agrees. Procedure is scheduled for Monday, August 03, 2020. #[id number] /NTS * Rachel Van MD - 08/03/2020 12:00 AM CDT Rebecca Knowles, date of of 1975, is a 45-year-old patient who presents for wide excision of a right breast biopsy site with preoperative needle localization. Patient had a right stereotactic breast biopsy, on 07/06/2020, for a group of fine pleomorphic calcifications in the middle third of the outer right breast, 9 o'clock position, 7 cm from the nipple. A cylinder clip was placed at the biopsy site. The pathology showed atypical ductal hyperplasia with associated calcifications, microcysts with associated microcalcifications, and fat necrosis. I had a detailed discussion with Rebecca reviewing these pathology results, the association between atypical ductal hyperplasia on a minimally invasive biopsy and the presence of possible microscopic breast cancer at that area, all options available, and recommendations for wide excision of right breast biopsy site with preoperative needle localization, check pathology and further plans to follow. I answered her questions. She demonstrated an understanding to this discussion and wishes to proceed with surgery, accepting the involved risks. Please see my office chart sheet for further details of this preop discussion held with the patient. She understands and agrees. Procedure is scheduled for Monday, August 03, 2020. PAST MEDICAL HISTORY: 1. Recent right breast stereotactic biopsy, category 4 calcifications, middle third outer breast, 9o'clock position, 7 cm from the nipple with pathology showing atypical ductal hyperplasia. 2. Left breast probable cysts. 3. Status post right Mammotome breast biopsy with benign results back on 01/21/2019. 4. Patient denies any other known medical problems. MEDICATIONS: None. PAST SURGICAL HISTORY: 1. Cholecystectomy. 2. Knee surgery. 3. Right Mammotome breast biopsy in 2019. 4. Recent total abdominal hysterectomy with bilateral salpingo-oophorectomy - no cancer. 5. Right stereotactic breast biopsy recently as above noted. ALLERGIES: PENICILLIN CAUSES SWELLING AND RASH. FAMILY HISTORY: Positive for heart disease, diabetes, cancer, mother with ovarian cancer, and breast cancer. SOCIAL HISTORY: Patient quit smoking cigarettes 9 years ago. She does not drink alcohol. 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 Age of first 18 years old. Patient's mother with diagnosis of ovarian cancer at age 39. REVIEW OF SYSTEMS: Otherwise negative and please see my office chart sheet for further details. PHYSICAL EXAMINATION: Five feet 5 inches tall, 193 pounds, BMI 23.1. Vital Signs: Stable and afebrile - see chart for further details. Patient is awake, alert and oriented. She moves all of her extremities well. Her gross motor exam throughout is normal. Her mood, judgment and affect are all normal. She is very pleasant, appears well-developed and well-nourished. She is in no acute distress. There is no palpable neck or supraclavicular lymphadenopathy. Trachea is in the midline. Thyroid is not grossly enlarged. Pupils equal and round. Sclerae are nonicteric. Chest is clear with normal respiratory effort. Heart: Regular rate and rhythm. Extremities: Warm, pink. Abdomen: Soft. Flat. Nontender. No palpable masses or organomegaly. Bilateral Breast Exam: Normal. Bilateral Axillary Exam: Normal. To note, the patient has a well-healed lower Pfannenstiel abdominal scar. IMPRESSION: Right breast, category 4, middle one-third of upper outer quadrant, 9 o'clock position,7 cm from the nipple, pleomorphic microcalcifications with stereotactic breast biopsy showing atypical ductal hyperplasia. PLAN: The patient requests wide excision of right breast biopsy site with preoperative needle localization, check pathology and further plans to follow. She understands and agrees. Procedure is scheduled for Monday, August 03, 2020. #[id number] /NTS documented in this encounter Nursing Notes * Lawanda Jones RN - 08/03/2020 1:15 PM CDT Patient and family given discharge instructions, medications and followup. Pt and family verbalizedunderstanding. * Soheila Amaro RN - 08/03/2020 10:49 AM CDT Updated , Anjel, via phone at 1049. * Miriam Marie RN - 08/03/2020 8:25 AM CDT Hibiclens showers at home x 2, nose to toes protocol completed. CHG wipes used on arrival to OPS, etyhl alcohol swabs x 2 placed in bilateral nares per RN. Pt tolerated well.Patient informed this nurse that they have self isolated at home since their covid testing was done. * Lawanda Jones RN - 08/02/2020 2:47 PM CDT SPOKE WITH PATIENT REGARDING ARRIVAL TIME, PT WILL BE HERE AT 0800 IN THE AM documented in this encounter OR Notes * Brief Op Note - Rachel Van MD - 08/03/2020 11:38 AM CDT Brief Op Note Rebecca Knowles 08/03/2020 Pre-op Diagnosis: Right breast ADH Post-op Diagnosis: Same Procedure: Procedure(s): Right - WIDE EXCISION RIGHT BREAST BIOPSY SITE WITH PREOPERATIVE NEEDLE LOCALIZATION - Wound Class:Clean Anesthesia: General Surgeon: RACHEL VAN MD Supervisor Microfilm Duplicating Unit: Rn Orthopaedic: NAHUN Rojo Runner/Help Start: Blanca Cao RN Circulating Nurse 1: Soheila Amaro RN Scrub Person 1: Cortney Zavala, SURG TECHFirst Supervisor Microfilm Duplicating Unit: NAHUN Rojo/Sole Start: Blanca Cao RN Circulating Nurse 1: Soheila Amaro RN Scrub Person 1: Cortneyheide Zavala, COUNTRY PRINTER Anesthesia: General Anesthesiologist: Steve Ibarra MD CONTINUOUS IMPROVEMENT SPECIALIST: Nigel Kruger CRNA; Jazmine Lyon CRNA Specimen: ID Type Source Tests Collected by Time Destination A : Right breast lumpectomy- gross margins TISSUE BREAST, RIGHT PATHOLOGY Rachel Van MD 08/03/2020 1053 Drains: None EBL:minimal Complications: None Findings: see operative note RACHEL VAN MD Date: 08/03/2020 Time: 11:38 AM * Op Note - Rachel Van MD - 08/03/2020 12:00 AM CDT PREOPERATIVE DIAGNOSIS: Status post minimally invasive biopsy of the right breast, 9 o'clock position, 7 cm from the nipple, middle one-third of the breast, showing atypical ductal hyperplasia, with cylinder clip placement. POSTOPERATIVE DIAGNOSIS: Status post minimally invasive biopsy of the right breast, 9 o'clock position, 7 cm from the nipple, middle one-third of the breast, showing atypical ductal hyperplasia, withcylinder clip placement. PROCEDURE PERFORMED: Wide excision of right breast biopsy site with preoperative needle localization. SURGEON: Rachel Van MD PERINATOLOGY PHYSICIAN: Nurse. ANESTHESIA: General endotracheal. CLINICAL HISTORY: Please see my H&P for further details. OPERATIVE FINDINGS AND PROCEDURE PERFORMED: I met with the patient and her preoperatively. The site of the right breast was marked with a skin scribe. Patient confirmed proper position of thepreoperative pj. The patient then was taken to the radiology department. She had needle localization of the right breast cylinder clip. I reviewed these films with Dr. Jauregui of the radiology department. DESCRIPTION OF PROCEDURE: Patient was taken to the operating room #7, placed into the supine position. After satisfactory general endotracheal anesthesia had been administered, compression stockings were placed on both lower extremities, the right breast was prepared and draped in the usual sterilefashion, intravenous antibiotics were given by anesthesia, and proper timeout procedures were accomplished. Next, a small incision was made, areolar border edge, laterally, over the tip of localizing needle.The dissection was carried down through the skin and underlying breast tissue. The breast tissue was extremely firm. The tissue was dense and dissection was carried down to the area of the localization. A core of breast tissue was taken completely around the tip of the localizing needle, taking care never to expose the needle/wire during the dissection. The specimen was removed and marked for laterality using 2-0 silk suture. Specimen imaging showed that the cylinder clip was present within thebiopsy specimen, indicative of a successful biopsy. This was confirmed by the radiologist. Dr. Marcela Sierra of the pathology department informed me that gross margins were negative for anyvisible abnormalities. There was a biopsy cavity within the specimen. She requested no additional tissue. The wound was thoroughly irrigated. A combination of Marcaine 0.25% plain with Xylocaine 1% with Epinephrine was infiltrated around the operative site. Meticulous hemostasis was present. There were no palpable abnormalities. The lap, sponge, needle, instrument counts were all reported as being correct. The subdermal layer was closed with interrupted 3-0 chromic suture. Skin was closed with running subcuticular 4-0 Monocryl suture. Dermabond was placed. After the Dermabond dried, sterile compressive dressing was placed and a Jobst bra applied. INTRAVENOUS FLUIDS: 500 mL PACKS: None. DRAINS: None. BLOOD LOSS: Negligible. Again, the lap, sponge, needle, and instrument counts were all reported as being correct at the endof the case. Patient tolerated the procedure well and returned to the recovery room in stable condition. I had a detailed discussion with the patient's postoperatively reviewing the operative findings, procedure performed, postoperative plans and expectations. He demonstrated an understanding tothis discussion. All of his questions were completely answered. #[id number] /NTS * OR PreOp - BERNABE Boyle - 07/27/2020 12:37 PM CDT Chart reviewed. Per phone interview, patient denies any SOB/CP with 2 FOS or recent changes in activity tolerance in past 6 months. 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 Patient scheduled for COVID testing 07/31/20 * OR PreOp - Ольга Borges RN - 07/26/2020 3:17 PM CDT Patient can climb 2 flights of stairs without chest pain or extreme sob. Exercise tolerance the same as it was 6 months ago. Denies recent heart testing pcp-[facility] Cardio-NONE Telephone consent obtained from patient for COVID-19 testing. Patient agrees to comply with self-isolation as instructed until day of surgery. Patient expressed understanding. documented in this encounter Plan of Treatment Not on file documented as of this encounter Procedures Procedure Name Priority Date/Time Associated Diagnosis Comments BIOPSY BREAST WITH NEEDLE LOCALIZATION 08/03/2020 10:26 AM CDT ATYPICAL DUCTAL HYPERPLASIA Case Notes SCHED WITH [place] ON 07/14/2020 J PHONE ASSESS Special Needs NEEDLE LOC AT 0930 PATHOLOGY Routine 08/03/2020 12:00 AM CDT documented in this encounter Results * Pathology (08/03/2020 12:00 AM CDT) COPATH REPORT ? [facility] ? [address] ? [place], [place] ??[address] ? [id number] ? Department of Pathology ? Pathology Report ? SURGICAL FINAL REPORT Patient Name: REBECCA KNOWLES ? : 1975 (Age: 45) ? [facility] Gender: F ?Collected Date: 08/03/2020 Med Rec #: [id number] ?Date Received: 08/03/2020 Date Reported: 08/04/2020 Provider: RACHEL VAN MD ?MARIA C MARTIN Specimen(s) Breast Lumpectomy, right Final Pathologic Diagnosis RIGHT BREAST, LUMPECTOMY: ? FOCAL MINIMAL ATYPICAL DUCTAL HYPERPLASIA (ADH), PROMINENT BIOPSY SITE CHANGES, USUAL DUCTAL HYPERPLASIA, FIBROCYSTIC CHANGES, DUCT ECTASIA, AND CALCIFICATIONS COMMENT The specimen shows prominent biopsy site changes and focal atypical ductal hyperplasia. ??The inked margin is negative for involvement. ?? Electronically Signed Out ? MARCELA SIERRA MD Pathologist ATH:pb Microscopic Description: Deeper levels are examined on blocks 2, 7 and 9. Clinical History Atypica ductal hyperplasia Frozen Section Diagnosis Right breast lumpectomy for gross margins: ?? FIBROTIC BREAST TISSUE. ??NO DISCRETE MASS SEEN. Gross Description The specimen is received in a red biohazard bag with the patient's name (Rebecca Knowles), date of , and right breast gross margin. ??The specimen consists of a 20 gram lumpectomy specimen oriented as follows: ??Single long anterior, double long superior, double short medial. ??The specimen measures 5 cm from medial to lateral, 3 cm from anterior to posterior, and 2.5 cm from superior to inferior. ??A wire localization needle is seen entering into the lateral portion of the specimen. ??The specimen is inked as follows: ??Superior red, inferior orange, medial yellow, lateral green, anterior blue, posterior black. ??The specimen is serially sectioned from lateral towards medial to show diffusely fibrotic breast tissue with focal areas of hemorrhage in the lateral and central portion of the specimen. ??Warehouse Distribution Manager sections are submitted as follows: 1,2. ? Lateral margin, perpendicular sections 3-14. ? Firm fibrotic areas going from lateral towards medial 15. ? Medial margin Please note: ??75% of the specimen is submitted for microscopy. ATH:pb Billing Fee Code(s): 60135, [address]10 [facility] Tissue specimen (specimen) RIGHT BREAST STRUCTURE / Unknown 08/03/2020 10:53 AM CDT Comment:Single long superfic ial Double long superior Double short medial us Rachel Van MD PATHOLOGY/CYTOLOGY ORDERABLES Final Result [facility] [address] [place] [address], [place] [phone] documented in this encounter Visit Diagnoses Not on filedocumented in this encounter Administered Medications Inactive Administered Medications - up to 3 most recent administrations Medication Order MAR Action Action Date Dose Rate Site acetaminophen (TYLENOL) tablet 1,000 mg 1,000 mg, Oral, Once, 1 dose, On Sat08/03/20 at 0915, Maximum dose of acetaminophen is 4000 mg from all sources in 24 hours. Given 08/03/2020 8:53 AM CDT 1,000 mg famotidine (PEPCID) tablet 20 mg 20 mg, Oral, Once, 1 dose, On Sat08/03/20 at 0830, On admission, Pre-Op Given 08/03/2020 8:53 AM CDT 20 mg fentaNYL (SUBLIMAZE) injection 25 mcg 25 mcg, Intravenous, Every 5 min PRN, Other, Moderate pain (Scale 4-7), 4 doses, Starting on Sat08/03/20 at 1132, Until Sat08/03/20 at 1256, Maximum cumulative dose 100 mcg. Do not administer if patient is overly sedated, SpO2 less than 90%, or Respiratory Rate less than 12. If more than one IV analgesic is ordered per pain level, use in this order: fentaNYL, morphine, HYDROmorphone. If desired pain control is not reached, move to next ordered medication at next dosing interval., PACU Given 08/03/2020 12:09 PM CDT 25 mcg HYDROcodone-acetaminophen (NORCO) 5-325 MG tablet 2 tablet 2 tablet, Oral, Once, 1 dose, On Sat08/03/20 at 1245, Maximum dose of acetaminophen is 4000 mg from all sources in 24 hours. Given 08/03/2020 12:20 PM CDT 2 tablets HYDROcodone-acetaminophen (NORCO) 5-325 MG tablet 1 dose, Starting on Sat08/03/20 at 1217, Until Sat08/03/20 at 1220, Created by cabinet override lactated ringers infusion at 10 mL/hr, Intravenous, Continuous, Starting on Sat08/03/20 at 0830, Until Sat08/03/20 at 1525, Infuse at TKO rate, Pre-Op New Bag 08/03/2020 8:53 AM CDT 10 mL/hr lactated ringers infusion at 100 mL/hr, Intravenous, Continuous, Starting on Sat08/03/20 at 1200, Until Sat08/03/20 at 1525, PACU ondansetron (ZOFRAN-ODT) disintegrating tablet 8 mg 8 mg, Oral, Once, 1 dose, On Sat08/03/20 at 0830, On admission, Pre-Op Given 08/03/2020 8:53 AM CDT 8 mg documented in this encounter Active and Recently Administered Medications Times are shown in CDT. Scheduled Medication Order 08/01/2020 08/02/2020 08/03/2020 acetaminophen (TYLENOL) tablet 1,000 mg (COMPLETED) 1,000 mg, Oral, Once, 1 dose, On Sat08/03/20 at 0915, Maximum dose of acetaminophen is 4000 mg from all sources in 24 hours. 0853 (Given - Provid er: Miriam Marie RN) famotidine (PEPCID) tablet 20 mg (COMPLETED) 20 mg, Oral, Once, 1 dose, On Sat08/03/20 at 0830, On admission, Pre-Op 0853 (Given - Provid er: Miriam Marie RN) HYDROcodone-acetaminophen (NORCO) 5-325 MG tablet 2 tablet (COMPLETED) 2 tablet, Oral, Once, 1 dose, On Sat08/03/20 at 1245, Maximum dose of acetaminophen is 4000 mg from all sources in 24 hours. 1220 (Given - Provid er: Marianne Botello RN - Comment: anticipatory pain) levoFLOXacin (LEVAQUIN) IVPB 500 mg (COMPLETED) 500 mg, Intravenous, at 100 mL/hr, Once, 1 dose, On Sat08/03/20 at 0830, Pre-Op 1036 (Given - Provid er: Nigel Kruger CRNA)1051 (Infusion Stop Time - Provider: Nigel Kruger CRNA)1145 (Anesthesia Volume Adjustment - Provider: Nigel Kruger CRNA) ondansetron (ZOFRAN-ODT) disintegrating tablet 8 mg (COMPLETED) 8 mg, Oral, Once, 1 dose, On Sat08/03/20 at 0830, On admission, Pre-Op 0853 (Given - Provid er: Miriam Marie RN) Continuous Medication Order 08/01/2020 08/02/2020 08/03/2020 lactated ringers infusion at 10 mL/hr, Intravenous, Continuous, Starting on Sat08/03/20 at 0830, Until Sat08/03/20 at 1525, Infuse at TKO rate, Pre-Op 0853 (New Bag - Prov ider: Miriam Marie RN)1145 (Anesthesia Volume Adjustment - Provider: Nigel Kruger CRNA) lactated ringers infusion at 100 mL/hr, Intravenous, Continuous, Starting on Sat08/03/20 at 1200, Until Sat08/03/20 at 1525, PACU 1200 (Canceled Entry - Provider: Automatic Discharge Provider - Comment: Automatically canceled at discontinue of medication order) PRN Medication Order 08/01/2020 08/02/2020 08/03/2020 BUpivacaine (MARCAINE) 0.25 % injection (CANCELED) As needed, Starting on Sat08/03/20 at 1050, Until Sat08/03/20 at 1148, Intra-Op 1050 (Given - Provid er: Rachel aVn MD - Comment: mixed with 1% lidocaine with epinephrine) fentaNYL (SUBLIMAZE) injection 25 mcg (CANCELED) 25 mcg, Intravenous, Every 5 min PRN, Other, Moderate pain (Scale 4-7), 4 doses, Starting on Sat08/03/20 at 1132, Until Sat08/03/20 at 1256, Maximum cumulative dose 100 mcg. Do not administer if patient is overly sedated, SpO2 less than 90%, or Respiratory Rate less than 12. If more than one IV analgesic is ordered per pain level, use in this order: fentaNYL, morphine, HYDROmorphone. If desired pain control is not reached, move to next ordered medication at next dosing interval., PACU 1209 (Given - Provid er: Marianne Botello RN) lidocaine-EPINEPHrine 1 %-1:[id number] injection (CANCELED) As needed, Starting on Sat08/03/20 at 1050, Until Sat08/03/20 at 1148, Intra-Op 1050 (Given - Provid er: Rachel Van MD - Comment: mixed with 0.25% bupivacaine) documented in this encounter Care Teams Entrepreneurship Program Director Relationship Specialty Start Date End Date Josefina Martin MD PCP - General FAMILY PRACTICE 01/20/19 documented as of this encounter
--- OUTSIDE RECORDS SUMMARY | 2024-10-28 20:58 | XMS_ITS | Encounter Summary ---
Author Organization [facility] Address [address] [place] [address]. [place], [place] [id number] [place] [id number] Care Team Providers Care Formulation Technician Name Role Phone Josefina Martin MD Primary Care Provider [phone] Reason for Referral * Imaging (Routine) - Closed Specialty Diagnoses / Procedures Referred By Contac t Referred To Contact Diagnoses Breast mass, right Procedures US GD BREAST BX RT Rachel Nunez MD [address] [place] [address] Phone: tel: fax: Referral ID Status Reason Start Date Expiration Date Visits Re quested Visits Authorized [id number] Closed 01/08/2019 02/07/2020 1 1 Reason for Visit * Imaging (Routine) - Closed Specialty Diagnoses / Procedures Referred By Contyulisa dejesus Referred To Contact Diagnoses Breast mass, right Procedures US GD BREAST BX RT Rachel Nunez MD [address] [place] [id number] Phone: tel: fax: Referral ID Status Reason Start Date Expiration Date Visits Re quested Visits Authorized [id number] Closed 01/08/2019 02/07/2020 1 1 Encounter Details Date Type Department Care Team (Latest Contact Info) Description 01/21/2019 1:30 PM CDT - 01/21/2019 11:59 PM CDT Hospital Encounter [facility] Ultrasound [address] [place], [place] [id number] Rachel Van MD [address] [address] Discharge Disposition: Home or Self Care (Routine Discharge) Social History Tobacco Use Types Packs/Day Years Used Date Smoking Tobacco: Never Assessed Comments Unknown Sex and Gender Information Value Date Recorded Sex Assigned at Not on file Legal Sex Female 3:49 PM CDT Gender Identity Not on file Sexual Orientation Not on file documented as of this encounter Last Filed Vital Signs Vital Sign Reading Time Taken Comments Blood Pressure - - Pulse - - Temperature - - Respiratory Rate - - Oxygen Saturation - - Inhaled Oxygen Concentration - - Weight 95.3 kg (210 lb) 01/21/2019 1:00 PM CDT Height 167.6 cm (5' 6 ) 01/21/2019 1:00 PM CDT Body Mass Index 33.89 01/21/2019 1:00 PM CDT documented in this encounter H&P Notes * Rachel Van MD - 01/21/2019 12:00 AM CDT HISTORY OF PRESENT ILLNESS: Rebecca Pantoja, date of 1975, is a 43-year-old patient who presents for a right mammotome breast biopsy with clip placement. The patient's clinical review of systems of her breasts were negative except for some chronic unchanged bilateral breast tenderness and \ lumpy breasts.\ She has noted no solitary breast mass, no nipple discharge, and no skin changes to the breast. Bilateral mammograms, 12/03/2018, right diagnostic mammogram on 12/25/2018, right breast ultrasoundon 12/25/2018 showed category 4, right breast, 12 o'clock position, solid 6 mm mass, nipple area and adjacent small mass. These were given high risk category 4. I had a detailed discussion with the patient, reviewing all above, differential diagnosis, options,pros and cons of each approach, and the details of risks, benefits, recovery, and rationale of the right mammotome breast biopsy with clip placement, check pathology and further plans for followup. She understands and agrees. Please see my office chart sheet for further details. Procedure is scheduled for Monday, January 21, 2019. PAST MEDICAL HISTORY: Right breast abnormality as above noted. MEDICATIONS: None. PAST SURGICAL HISTORY: 1. Cholecystectomy in 2013. 2. Knee surgery in 2015. ALLERGIES: PENICILLIN CAUSES SWELLING AND A RASH. FAMILY HISTORY: Positive for heart disease and diabetes, mother ovarian cancer and breast cancer. SOCIAL HISTORY: Patient quit smoking cigarettes 9 years ago. She does not drink alcohol. 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 with 3 children. Age of first period, 10 years old. Age of her first , 18 years old. REVIEW OF SYSTEMS: Otherwise negative and please see my office chart sheet for further details. PHYSICAL EXAMINATION: Height 5 feet 5 inches, weight 220 pounds, BMI 36.6. Vital signs stable, afebrile -- see chart for further details. She is awake, alert, and oriented. She moves all extremities well. Her gross motor exam throughout is normal. Her mood, judgment, and affect are all normal. She is very pleasant. She is well-developed, well-nourished. She is in no acute distress. There is no pal pable neck or supraclavicular lymphadenopathy. Trachea is in the midline. Thyroid is not grossly enlarged. Pupils equal and round. Sclerae nonicteric. Chest: Clear with normal respiratory effort. Heart: Regular rate and rhythm. Extremities: Warm, pink. Abdomen: Soft. Flat. Nontender. No palpable masses or organomegaly. Bilateral breast exam,equal fibrocystic changes, no dominant masses. Bilateralaxillary exam: No palpable masses or lymphadenopathy. IMPRESSION: Category 4, right breast, 12 o'clock position, solid 6 mm mass, nipple level, and an adjacent mass. PLAN: The patient requests right mammotome breast biopsy with clip placement, check pathology and further plans to follow up. The patient understands and agrees. Procedure is scheduled for 2018. #[id number] /NTS documented in this encounter OR Notes * Op Note - Rachel Van MD - 01/21/2019 12:00 AM CDT PREOPERATIVE DIAGNOSES: Right breast lesion, category 4, 12 o'clock position, near the nipple, 6 mmin size, with an adjacent 8 mm lesion. POSTOPERATIVE DIAGNOSIS: Right breast lesion, category 4, 12 o'clock position, near the nipple, 6 mm in size, with an adjacent 8 mm lesion. PROCEDURE PERFORMED: Right mammotome breast biopsy with clip placements, see operative note. SURGEON: Rachel Van MD POLICY AND PLANNING MANAGER: formula technician. ANESTHESIA: Xylocaine 1% with Epinephrine. I met with the patient in the ultrasound room. Her right breast was scanned. There were 2 adjacent nodules, 6 mm and 8 mm in size, right breast, 12 o'clock position, near the nipple area. These were the lesions in question. The planned procedure, post-biopsy instructions and expectations were all reviewed. She understood and agreed. She knows to call the office in a couple working days' time for pathology results. Right breast was prepared and draped in the usual sterile fashion. Proper timeout procedures were accomplished. The 2 adjacent right breast lesions, 12 o'clock position, near nipple level, 6 and 8 mmin size, were identified. Xylocaine 1% with Epinephrine was infiltrated down to and around both of these lesions. Next, a small incision was made in the skin and a mammotome biopsy apparatus needle inserted through the anesthetized tract. Each of these lesions were placed into the trough of the needle. Mammotome biopsy apparatus was activated, tissue was cut and delivered into the collection chamber. With the first throw at each of these lesions of the mammotome biopsy apparatus, each of the lesions disappeared. This is indicative of a cystic nature of both of these lesions. There are no remaining abnormalities. A biopsy clip was placed at the area that was sampled after the mammotome biopsy needle had been completely removed. The clip resident surgeon was also completely removed. Pressure was held. There was no bleeding. There was no hematoma. Right breast imaging showed the clip in the proper position. There is no hematoma. There is no bleeding. There were no immediate complications. Steriledressings were applied. A right mammogram is pending. Patient tolerated the procedure well and left the ultrasound room in good condition. IV FLUIDS: None. PACKS: None. DRAINS: None. ESTIMATED BLOOD LOSS: Negligible. #[id number] /NTS documented in this encounter Plan of Treatment Not on file documented as of this encounter Procedures Procedure Name Priority Date/Time Associated Diagnosis Comments US GD BREAST BX RT BIRAD Routine 01/21/2019 2:25 PM CDT Breast mass, right PATHOLOGY Routine 01/21/2019 12:00 AM CDT documented in this encounter Results * US GD BREAST BX RT BIRAD (01/21/2019 2:25 PM CDT) Anatomical Region Laterality Modality Breast Right Ultrasound RIGHT BREAST STRUCTURE / Unknown 01/21/2019 2:26 PM CDT Impressions 01/21/2019 2:28 PM CDT =====IMPRESSION:===== Ultrasound-guided mammotome biopsies of 2 right breast mass 12:00 position. Biopsies performed by Dr. Van, general surgery. No radiologist present. Narrative 01/21/2019 2:28 PM CDT Examination: Ultrasound breast biopsy. Exam date/time: 01/21/2019 1:42 PM Reason For Exam: ??Breast mass, right ? Right breast masses. Biopsy of right breast masses. Comparison: Outside right breast ultrasound 12/25/2018. Technique: Transcutaneous ultrasound evaluation of the area of concern in the right breast was performed for analysis of grayscale and color doppler imaging characteristics as well as guidance for Mammotome biopsy performed by Dr. Denise?Rehan. Findings: Solid mass 12:00 position right breast identified. Other hypoechoic nonsimple cystic mass versus solid mass 12:00 position right breast. Ultrasound-guided mammotome biopsies of both breast masses performed. Biopsy clip placed. Procedure Note Jose Johnson MD - 01/21/2019 Examination: Ultrasound breast biopsy. Exam date/time: 01/21/2019 1:42 PM Reason For Exam: Breast mass, right Right breast masses. Biopsy of right breast masses. Comparison: Outside right breast ultrasound 12/25/2018. Technique: Transcutaneous ultrasound evaluation of the area of concernin the right breast was performed for analysis of grayscale and colordoppler imaging characteristics as well as guidance for Mammotome biopsyperformed by Dr. Van. Findings: Solid mass 12:00 position right breast identified. Other hypoechoic nonsimple cystic mass versus solid mass 12:00 position right breast. Ultrasound-guided mammotome biopsies of both breast masses performed. Biopsy clip placed. =====IMPRESSION:===== Ultrasound-guided mammotome biopsies of 2 right breast mass 12:00 position. Biopsies performed by Dr. Van, general surgery. Noradiologist present. us Rachel Van MD ULTRASOUND Final Result * Pathology (01/21/2019 12:00 AM CDT) COPATH REPORT ? [facility] ? Department of Pathology ? [address] [facility] ? [place], [place] ??[address] ? [id number] ? Pathology Report ? Name: REBECCA PANTOJA ?Specimen #: [id number] Age: 4 1975 (Age: 43) ? Location: [facility] Sex: F ? Procedure Date: 01/21/2019 Hospital #: [id number] ? Date Received: 01/21/2019 Date Reported: 01/22/2019 Provider: RACHEL VAN Gross Description: The specimen is received fresh at 2:07 p.m. on 01/21/2019, which is subsequently placed into formalin and labeled with the patient's name (Rebecca Pantoja), (1975), and right breast 12 o'clock retroareolar. The specimen consists of numerous loose yellow-white, rubbery, lobulated, fibrofatty tissue cores and tissue core fragments measuring 2 x 1.3 x 0.7 cm in aggregate. The specimen is intermixed with a moderate amount of dark red blood clot. The tissue cores and tissue core fragments range from 0.5 to 1.5 cm in length, all of which have an average diameter of 1.3 cm. ??The specimen is accompanied by a portion of biopsy instrumentation. The specimen is not accompanied by a radiograph or radiograph copy. ??No focally indurated areas are grossly identified. The specimen is entirely submitted intact, histowrapped in two cassettes. The tissue was fixed in 10% formalin between 6 and 72 hours prior to processing. Microscopic Description: Microscopic examination is performed and the findings support the final diagnosis. FINAL PATHOLOGIC DIAGNOSIS: BREAST, RIGHT; MAMMATOME BIOPSY: -FRAGMENTS OF BENIGN ECTATIC DUCT WALL -BACKGROUND BENIGN BREAST TISSUE WITH FOCAL USUAL DUCTAL HYPERPLASIA AND APOCRINE METAPLASIA -NEGATIVE FOR ATYPICAL HYPERPLASIA AND MALIGNANCY Diagnosis Comment: This case underwent intradepartmental review. ?? JITENDRA RASCON ??Pathologist if/01/22/2019 Electronically Signed Out ? [facility] BREAST STRUCTURE / Unknown 01/21/2019 01/21/2019 2:35 PM CDT Comment:MAMMOTOME BIOPSY, RI GHT BREAST us Rachel Van MD PATHOLOGY/CYTOLOGY ORDERABLES Final Result [facility] [address] [place] [address], documented in this encounter Visit Diagnoses Diagnosis Breast mass, right Lump or mass in breast documented in this encounter Administered Medications Inactive Administered Medications - up to 3 most recent administrations Medication Order MAR Action Action Date Dose Rate Site lidocaine-EPINEPHrine 1 %-1:913317 injection 20 mL 20 mL, Intradermal, Once, 1 dose, On Sat01/21/19 at 1400 Given 01/21/2019 2:00 PM CDT 20 mLs Right Breast sodium chloride 0.9 % irrigation 250 mL 250 mL, Irrigation, Continuous, Starting on Sat01/21/19 at 1400, Until Sat01/23/19 at 0306 New Bag 01/21/2019 2:00 PM CDT 250 mLs documented in this encounter Care Teams Formulation Technician Relationship Specialty Start Date End Date Josefina Martin MD PCP - General FAMILY PRACTICE 01/20/19 documented as of this encounter
--- OUTSIDE RECORDS SUMMARY | 2024-10-28 20:58 | XMS_ITS | Encounter Summary ---
Author Organization [facility] Address [address] [place] [address]. [place] [address] [place] [address] Care Team Providers Care Poultry Sexer Name Role Phone Josefina Martin MD Primary Care Provider [phone] Reason for Visit * Auth/Cert Specialty Diagnoses / Procedures Referred By Jessica dejesus Referred To Contact Diagnoses ATYPICAL DUCTAL HYPERPLASIA Procedures WIDE EXCISION RIGHT BREAST BIOPSY SITE WITH PREOPERATIVE NEEDLE LOCALIZATION Referral ID Status Reason Start Date Expiration Date Visits Re quested Visits Authorized [id number] 1 1 Encounter Details Date Type Department Care Team (Late st Contact Info) Description 08/03/2020 10:26 AM CDT - 08/03/2020 12:44 PM CDT Surgery [facility] OR [facility] [place], [place] [phone] Rachel Van MD [address] [place] [address] [place] [phone] WIDE EXCISION RIGHT BREAST BIOPSY SITE WITH PREOPERATIVE NEEDLE LOCALIZATION Surgery Details Date/Time Status Location OR Service Patient Class Case Class Case Type Trauma Case? 08/03/2020 10:26 AM Posted [place] OR OR 7 General Short Stay/Outpati ent Surgery E - Elective No Panel 1 Procedure LRB Anes Op Region Wound Class Comments WIDE EXCISION RIGHT BREAST B IOPSY SITE WITH PREOPERATIVE NEEDLE LOCALIZATION Right General Breast Harry an Surgeon Surgeon Role Service Panel Rachel Van MD Primary General 1 Case Notes SCHED WITH [place] ON 07/14/2020 MARILIA PHONE ASSESS Special Needs NEEDLE LOC AT 0930 documented in this encounter Social History Tobacco [...] Sign Reading Time Taken Comments Blood Pressure 111/55 08/03/2020 12:30 PM CDT Pulse 74 08/03/2020 12:30 PM CDT Temperature 36.4 ??C (97.6 ??F) 08/03/2020 12:30 PM C DT Respiratory Rate 17 08/03/2020 12:30 PM CDT Oxygen Saturation 97% 08/03/2020 12:30 PM CDT Inhaled Oxygen Concentration - - [...] days. No driving today. May drive tomorrow. [place] script. May us Motrin or equivalent as needed as directed. Wear bra. May shower tomorrow. Ice pack as needed in 20 minute intervals, 20 minutes on, 20 minutes off be sure to use a barrier between skin and ice pack. - After hours exchange for Dr. Van [phone] DERMABOND/MEDICAL GLUE INSTRUCTIONS Keep incision dry. No [...] Care Everywhere. * Hydrocodone and Acetaminophen, ADULT ([place]) * General Anesthesia Discharge Instructions ([place]) * Breast Biopsy Discharge Instructions ([place]) documented in this encounter Medications at Time [...] the past 30 days. After examining Rebecca Knowles, no change has occurred in the patient's condition since the H&P was completed. Informed Consent Discussion: Risks, benefits, alternatives as well as the consequences of not performing the surgery/procedure were discussed with the patient and/or family/personal wholesale representative. Questions were answered and the patient/family/personal wholesale representative verbalized understanding and desires to proceed. Source [...] does not drink alcohol. 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 #[id number] /NTS * Rachel Van MD - 08/03/2020 8:17 AM CDT HISTORY AND PHYSICAL INTERVAL NOTE: I have reviewed Rebecca Knowles History & Physical which was performed within the past 30 days. After examining Rebecca Knowles, no change has occurred in the patient's condition since the H&P was completed. Informed Consent Discussion: Risks, benefits, alternatives as well as the consequences of not performing the surgery/procedure were discussed with the patient and/or family/personal wholesale representative. Questions were answered and the patient/family/personal wholesale representative verbalized understanding and desires to proceed. Source [...] does not drink alcohol. 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 #[id number] /NTS * Rachel Van MD - 08/03/2020 [...] does not drink alcohol. 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 #[id number] /NTS documented in this encounter Nursing Notes [...] completed. CHG wipes used on arrival to [facility], etyhl alcohol swabs x 2 placed in [...] 11:38 AM CDT Brief Op Note Rebecca Shell Knowles 08/03/2020 Pre-op Diagnosis: Right breast ADH Post-op Diagnosis: Same Procedure: Procedure(s): Right - WIDE EXCISION RIGHT BREAST BIOPSY SITE WITH PREOPERATIVE NEEDLE LOCALIZATION - Wound Class:Clean Anesthesia: General Surgeon: RACHEL VAN MD Television Anchor: Shopping Centre Manager: NAHUN Rojo/Help Start: Blanca Cao RN Circulating Nurse 1: Soheila Amaro RN Scrub Person 1: Cortney Zavala, SURG TECHFirst Television Anchor: NAHUN Rojo/Sole Start: Blanca Cao RN Circulating Nurse 1: Soheila Amaro RN Scrub Person 1: Cortneyheide Zavala, TELEVISION NEWS VIDEO EDITOR Anesthesia: General Anesthesiologist: Steve Ibarra MD COMMERCIAL ENGINEER: Nigel Kruger CRNA; Jazmine Lyon CRNA Specimen: [...] preoperative needle localization. SURGEON: Rachel Van MD PETROPHYSICIST: Nurse. ANESTHESIA: General endotracheal. CLINICAL HISTORY: Please [...] All of his questions were completely answered. #[id number] /NTS * OR PreOp - BERNBAE Boyle - 07/27/2020 12:37 PM CDT Chart reviewed. Per phone interview, patient denies any SOB/CP with 2 FOS or recent changes in activity tolerance in past 6 months. Per phone interview, patient denies having a english tutor or previous cardiac testing. Patient scheduled for [...] ATYPICAL DUCTAL HYPERPLASIA Case Notes SCHED WITH HSAWNEE ON 07/14/2020 JDK PHONE ASSESS Special Needs NEEDLE LOC AT 0930 PATHOLOGY Routine 08/03/2020 12:00 AM CDT documented in this encounter Results * Pathology (08/03/2020 12:00 AM CDT) COPATH REPORT ? [facility] ? [address] ? [place], [place] ??[id number] ? [id number] ? Department of Pathology ? Pathology Report ? SURGICAL FINAL REPORT Patient Name: REBECCA KNOWLES ? : 1975 (Age: 45) ? Location: [facility] Gender: F ?Collected Date: 08/03/2020 Med Rec #: [id number] ?Date Received: 08/03/2020 Date Reported: 08/04/2020 Provider: [...] lateral and central portion of the specimen. ??Poleyard Supervisor sections are submitted as follows: 1,2. ? Lateral margin, perpendicular sections 3-14. ? Firm fibrotic areas going from lateral towards medial 15. ? Medial margin Please note: ??75% of the specimen is submitted for microscopy. ATH:pb Cristianing Fee Code(s): 89767, [address]70 [facility] Tissue specimen (specimen) RIGHT BREAST STRUCTURE / Unknown 08/03/2020 10:53 AM CDT Comment:Single long superfic ial Double long superior Double short medial Rachel Van MD PATHOLOGY/CYTOLOGY ORDERABLES Final Result [facility] [address] [place] [address], [place] [phone] documented in this encounter Visit Diagnoses Not [...] Given 08/03/2020 8:53 AM CDT 1,000 mg BUpivacaine (MARCAINE) 0.25 % injection As needed, Starting on Sat08/03/20 at 1050, Until Sat08/03/20 at 1148, Intra-Op Given 08/03/2020 10:50 AM CDT 5.5 mLs Operative Site famotidine (PEPCID) tablet 20 mg 20 mg, [...] Given 08/03/2020 12:09 PM CDT 25 mcg HYDROcodone-acetaminophe n (NORCO) 5-325 MG tablet 2 tablet 2 tablet, Oral, Once, 1 dose, On Sat08/03/20 at 1245, Maximum dose of acetaminophen is 4000 mg from all sources in 24 hours. Given 08/03/2020 12:20 PM CDT 2 tablets HYDROcodone-acetaminophe n (NORCO) 5-325 MG tablet 1 dose, Starting [...] at 1200, Until Sat08/03/20 at 1525, PACU lidocaine-EPINEPHrine 1 %-1:611946 injection As needed, Starting on Sat08/03/20 at 1050, Until Sat08/03/20 at 1148, Intra-Op Given 08/03/2020 10:50 AM CDT 5.5 mLs Operative Site ondansetron (ZOFRAN-ODT) disintegrating tablet 8 mg 8 [...] Rachel Van MD - Comment: mixed with 1% lidocaine [...] Provid er: Marianne Botello RN) lidocaine-EPINEPHrine 1 %-1:108691 injection (CANCELED) As needed, Starting on Sat08/03/20 at 1050, Until Sat08/03/20 at 1148, Intra-Op 1050 (Given - Provid er: Rachel Van MD - Comment: mixed with 0.25% bupivacaine) documented in this encounter Care Teams Poultry Sexer Relationship Specialty Start Date End Date Josefina Martin MD PCP - General FAMILY PRACTICE 01/20/19 documented as of this encounter
--- OUTSIDE RECORDS SUMMARY | 2024-10-28 20:58 | XMS_ITS | Encounter Summary ---
Author Organization [facility] Address [address] [place] [address]. [place] [address] [place] [address] Care Team Providers Care Exercise Physiologist Certified Name Role Phone Josefina Martin MD Primary Care Provider [phone] Reason for Visit * Auth/Cert Specialty Diagnoses / Procedures Referred By Jessica dejesus Referred To Contact Diagnoses ATYPICAL DUCTAL HYPERPLASIA Procedures WIDE EXCISION RIGHT BREAST BIOPSY SITE WITH PREOPERATIVE NEEDLE LOCALIZATION Referral ID Status Reason Start Date Expiration Date Visits Re quested Visits Authorized [id number] 1 1 Encounter Details Date Type Department Care Team (Latest Contact Info) Description 08/03/2020 8:04 AM CDT - 08/03/2020 11:59 PM CDT Hospital Encounter [facility] Mammography [address] [place], [place] [id number] Neri Van MD [address] [place] [phone] Discharge Disposition: Home or Self Care (Routine [...] AM CDT documented as of this encounter Medications [...] Name Priority Date/Time Associated Diagnosis Comments MG BREAST NEEDLE LOC BX RT BIRAD Routine 08/03/2020 10:00 AM CDT Atypical ductal hyperplasia, breast documented in this encounter Visit Diagnoses Not on filedocumented in this encounter Administered Medications Inactive Administered Medications - up to 3 most recent administrations Medication Order MAR Action Action Date Dose Rate Site lidocaine (PF) (XYLOCAINE) 1 % injection 5 mL 5 mL, Intradermal, Once, 1 dose, On Sat08/03/20 at 1030 Given by Other 08/03/2020 9:40 AM CDT 5 mLs Right Breast documented in this encounter Care Teams Exercise Physiologist Certified Relationship Specialty Start Date End Date Josefina Martin MD PCP - General FAMILY PRACTICE 01/20/19 documented as of this encounter
--- OUTSIDE RECORDS SUMMARY | 2024-10-28 20:58 | XMS_ITS | Encounter Summary ---
Author Organization [facility] Address [address] [place] [address]. [place], [place] [id number] [place] [address] Care Team Providers Care Farmer [employer] Fruit [employer] Nut [employer] Name Role Phone Josefina Martin MD Primary Care Provider [phone] Encounter Details Date Type Department Care Team (Latest Contact Info) Description 07/26/2020 Travel Social History Tobacco Use Types Packs/Day [...] on filedocumented in this encounter Care Teams Farmer [employer] Relationship Specialty Start Date End Date Josefina Martin MD PCP - General FAMILY PRACTICE 01/20/19 documented as of this encounter
--- OUTSIDE RECORDS SUMMARY | 2024-10-28 20:59 | XMS_ITS | Encounter Summary ---
Author Organization [facility] Address [address] [place] [address] Phone Care Team Providers Care Bobbin Coil Winder Name Role Phone Josefina Martin MD Primary Care Provider + Neri Van MD Unavailable [phone] Reason for Visit * Reason Comments Consult * Oncology (Routine) - Closed Specialty Diagnoses / Procedures Referred By Jessica dejesus Referred To Contact Oncology Diagnoses Atypical ductal hyperplasia of breast Neri Van MD Phone: tel: fax: [facility] Oncology [address] [place] [address] [address] [place] [address] Phone: tel: fax: Referral ID Status Reason Start Date Expiration Date V isits Requested Visits Authorized [id number] Closed Specialty Services Required 08/15/2020 01/03/2022 4 4 Encounter Details Date Type Department Care Team (Late st Contact Info) Description 08/24/2020 1:00 PM GLASS SANDER Office Visit [facility] Oncology [address] [place] [address] [place] [phone] Tavon Lindsey MD PhD [address] [place], [place] [id number] Atypical ductal hyperplasia of breast Social History Tobacco Use Types Packs/Day Years Used Date Smoking Tobacco: Former Cigarettes 1 15 1 [id number] Smokeless Tobacco: Never Alcohol Use Standard Drinks/Week Comments Yes 0 (1 standard drink = 0.6 oz pur e alcohol) Comments Unknown Sex and Gender Information Value Date Recorded Sex Assigned at Not on file Legal Sex Female 10:28 AM CDT Gender Identity Female 12/29/2018 10:34 AM CDT Sexual Orientation Not on file documented as of this encounter Last Filed Vital Signs Vital Sign Reading Time Taken Comments Blood Pressure 125/69 08/24/2020 1:00 PM GLASS SANDER Pulse 65 08/24/2020 1:00 PM GLASS SANDER Temperature - - Respiratory Rate 16 08/24/2020 1:00 PM GLASS SANDER Oxygen Saturation 97% 08/24/2020 1:00 PM GLASS SANDER Inhaled Oxygen Concentration - - Weight 93.4 kg (206 lb) 08/24/2020 1:00 PM GLASS SANDER Height 166.4 cm (5' 5.5 ) 08/24/2020 1:00 PM GLASS SANDER Body Mass Index 33.76 08/24/2020 1:00 PM GLASS SANDER documented in this encounter Ordered Prescriptions Prescription Sig Dispense Quantity Refills Last Filled Start Date End Date tamoxifen (NOLVADEX) 20 mg tablet Take 1 tablet (20 mg total) by mouth daily 30 tablet 5 08/24/2020 documented in this encounter Progress Notes * Tavon Lindsey MD PhD - 08/24/2020 1:00 PM CST Oncology Medicine History & Physical Chief Complaint: Patient is a 45 y.o. female with chief complaint of breast cancer. Subjective HPI: Patient presents for medical treatment of breast cancer. Patient was referred for evaluation and discussion of treatment options for carcinoma of the right breast. CURRENT TREATMENT: none MOLECULAR TESTING: none RELEVANT PMHX: none ONCOLOGIC HISTORY: - 07/08/2020 R breast biopsy: Atypical hyperplasia - 08/03/2020 RIGHT BREAST, LUMPECTOMY: ? FOCAL MINIMAL ATYPICAL DUCTAL HYPERPLASIA (ADH) PRESENTATION TODAY: Recovered after surgery Patient denies any new pain, shortness of breath, chest pain, vision changes, new headaches, fever,chills, rashes. Cancer Staging No matching staging information was found for the patient. Oncology History No history exists. Active Treatment & Therapy Plans for Suzanne Pantojara Rebecca Pantoja does not have any active plans of the following types: Oncology Chemotherapy Treatment, Oncology Treatment (2), Oncology Treatment (3), Oncology Supportive Care, Specialty Infusion Treatment, Blood Products, BMT, Hematology No past medical history on file. No past surgical history on file. Not on File (Not in a hospital admission) No current outpatient medications on file. No family history on file. Social History Tobacco Use ??? Smoking status: Not on file Substance Use Topics ??? Alcohol use: Not on file Review of Systems: As per HPI, all other systems reviewed and negative Objective Vitals: There were no vitals filed for this visit. Physical Exam: ECO GEN: No apparent distress EYES: Pupils equal and reactive ENT Mouth - no ulceration LYMPH: no cervical, supraclavicular, inguinal lymph nodes palpable LUNGS: Clear bilaterally HEART: regular rate and rhythm ABDOMEN: Soft, non-tender SKIN: no rashes EXT: no edema NEURO: Alert and oriented X 3 BREAST: R breast - well healing incision Lab/Radiology/Diagnostic Review: CBC: CMP: PT: PTT: Assessment/Plan #R breast ductal hyperplasia The Breast Cancer Risk Assessment Tool (BCRAT); the Tova Model assessment was obtained. She had a 5year 3.3% risk with 23% over lifetime. We discussed options: Lifestyle modification Tamoxifen She decided to try tamoxifen and if minimal side effects we will plan 5 years of therapy. Thank you for allowing us to participate in her care. Please call the office with any questions. S SANDER documented in this encounter Plan of Treatment Not on file documented as of this encounter Visit Diagnoses Diagnosis Atypical ductal hyperplasia of breast Other specified benign mammary dysplasias documented in this encounter Historical Medications * This list may reflect changes made after this encounter. HYDROcodone-aceta minophen (NORCO) 5-325 mg per tablet TK 1 TO 2 TS PO Q 6 H PRF PAIN 08/03/2020 ALPRAZolam (XANAX) 0.25 mg tablet Take 0.25 mg by mouth daily as needed added in this encounter Orders Outpatient Referral Count Last Ordered Date Fir st Ordered Date AMB REFERRAL TO ONCOLOGY 1 08/24/2020 documented in this encounter Care Teams Bobbin Coil Winder Relationship Specialty Start Date End Date Josefina Martin MD PCP - General Family Medicine 12/29/18 Neri Van MD Referring Physician Surgery 08/24/20 documented as of this encounter
--- OUTSIDE RECORDS SUMMARY | 2024-10-28 20:59 | XMS_ITS | Encounter Summary ---
Author Organization [facility] Address [address] [place] [address] Care Team Providers Care Glove Examiner Name Role Phone Josefina Martin MD Primary Care Provider [phone] Reason for Visit * Auth/Cert (Routine) Specialty Diagnoses / Procedures Referred By Jessica t Referred To Contact Perioperative Diagnoses Morbid obesity Morbid obesity [E66.01] morbid obesity Procedures ME UNLISTED PROCEDURE STOMACH ESOPHAGOGASTRODUODENOSCOPY WITH INTRAGASTRIC BALLOON PLACEMENT [place]STRIC [place] [address] [place] [address] [place] [address] [facility] Endoscopy [address] [place] [address] Referral ID Status Reason Start Date Expiration Date Visits Re quested Visits Authorized [id number] 1 1 Encounter Details Date Type Department Care Team (Latest Contact Info) Description 04/12/2023 12:00 PM CDT - 04/12/2023 12:31 PM CDT Surgery [facility] Endoscopy Services [address] [place] [address] [place] [address] [place] [address] [place] [address] ESOPHAGOGASTRODUODENOSCOPY WITH INTRAGASTRIC BALLOON PLACEMENT Surgery Details Date/Time Status Location OR Service Patient Class Case Cl ass Case Type Trauma Case? 04/12/2023 12:00 PM Posted [facility] ENDOSCOPY GI 02 Endoscopy Outpatient Elective No Panel 1 Procedure LRB Anes Op Region Wound Class Comments ESOPHAGOGASTRODUODENOSCOPY W ITH INTRAGASTRIC BALLOON PLACEMENT N/A General Esophagus Surgeon Surgeon Role Service Panel Nancy Warren MD Primary Endoscopy 1 documented in this encounter Social History Tobacco Use Types Packs/Day Years Used Date Smoking Tobacco: Former Cigarettes Tobacco Cessation:Counseling Given: Not Answered Alcohol Use Standard Drinks/Week Comments Not Currently 0 (1 standard drink = 0.6 oz pur e alcohol) Sex and Gender Information Value Date Recorded Sex Assigned at Not on file Gender Identity Not on file Sexual Orientation Not on file COVID-19 Exposure Response Date Recorded In the last 10 days, have yo u been in contact with someone who was confirmed or suspected to have Coronavirus/COVID-19? No / Unsure 04/12/2023 9:54 AM CDT documented as of this encounter Last Filed Vital Signs Vital Sign Reading Time Taken Comments Blood Pressure 111/66 04/12/2023 12:25 PM CDT Pulse 58 04/12/2023 12:25 PM CDT Temperature 36.1 ??C (97 ??F) 04/12/2023 12:04 PM CDT Respiratory Rate 7 04/12/2023 12:25 PM CDT Oxygen Saturation 99% 04/12/2023 12:25 PM CDT Inhaled Oxygen Concentration - - Weight 96.2 kg (212 lb) 04/12/2023 10:25 AM CDT Height 165.1 cm (5' 5 ) 04/12/2023 10:25 AM CDT Body Mass Index 35.28 04/12/2023 10:25 AM CDT documented in this encounter Discharge Instructions * Discharge Instructions* Nancy Warren MD - 04/12/2023 10:50 AM CDT ENDOSCOPY CENTER DISCHARGE INSTRUCTIONS You have received sedation medication for your procedure. DO NOT drive or operate any machinery today. DO NOT consume any alcoholic beverages today. You may return to normal activity tomorrow. A feeling of fullness or cramping is normal. It is not uncommon to have localized irritation of the vein at the medication site. A warm moist washcloth over the site can help reduce pain and irritation. No heavy lifting, straining or exercising for the next 24 hours. You may consume a light meal and resume your diet prior to the procedure unless otherwise noted below. If samples were taken during your procedure, please allow 1-2 weeks to receive results. If you don't hear from us by 2 weeks please call the office. Contact your physician if you experience any of the following: Chills and/or fever over 101 degrees Increasing pain, nausea or vomiting Increased abdominal swelling or severe bloating Shortness of breath IF A COMPLICATION OR EMERGENCY SITUATION ARISES AND YOU ARE UNABLE TO REACH YOUR PHYSICIAN - PLEASEGO TO THE NEAREST EMERGENCY DEPARTMENT IMMEDIATELY WITH THIS FORM. Discharge patient to home (ambulatory). - The findings and recommendations were discussed with the patient's family. - Return to clinic as previously scheduled documented in this encounter Medications at Time of Discharge Medication Sig Dispensed Refills Start Date End Date HYDROcodone-acetaminophen (HYCET) 7.5-325 mg/15 mL SolutionIndications:Morbid obesity Take 15 mL by mouth every 6 hours as needed for Pain. Max Daily Amount: 60 mL 280 mL 04/12/2023 documented as of this encounter Progress Notes * Esthela Dennis, PHARMACIST - 04/12/2023 1:40 PM CDT Bariatric Medication Review Per home medication list viewed 04-12-23 Patient has no listed Prior To Admission home medications at this time R Jonatan Dennis documented in this encounter H&P Notes * Nancy Warren MD - 04/12/2023 10:49 AM CDT [facility] History and Physical Patient: Rebecca Pantoja : 1975 Date: 04/12/2023 HISTORY OF PRESENT ILLNESS: Patient is a 48 y.o. female who is scheduled for EGD for pre-op weight loss surgery and Gastric Balloon. No past medical history on file. Past Surgical History: Procedure Laterality Date HX CHOLECYSTECTOMY HX HYSTERECTOMY HX KNEE REPLACEMENT No medications prior to admission. Allergies Allergen Reactions Penicillins Hives Social History Socioeconomic History Marital status: Spouse name: Not on file Number of children: Not on file Years of education: Not on file Highest education level: Not on file Occupational History Not on file Tobacco Use Smoking status: Former Types: Cigarettes Smokeless tobacco: Not on file Vaping Use Vaping Use: Never used Substance and Sexual Activity Alcohol use: Not Currently Drug use: Not Currently Sexual activity: Not on file Other Topics Concern Not on file Social History Narrative Not on file Social Determinants of Health Financial Resource Strain: Not on file Food Insecurity: Not on file Transportation Needs: Not on file Social Connections: Not on file Intimate Partner Violence: Not on file Housing Stability: Not on file No family history on file. REVIEW OF SYSTEMS: Constitutional: no weight loss, no malaise Respiratory: no shortness of breath, no chest pain Cardiovascular: no angina, no palpitation Gastrointestinal: no dysphagia, no abdominal pain Musculoskeletal: no muscle pain PHYSICAL EXAM: Blood Pressure 126/74 (BP Location: Right arm, Patient Position (BP): Sitting) Pulse 70 Temperature 98.2 ??F (36.8 ??C) (Temporal) Respiration 18 Height 5' 5 (1.651 m) Weight 96.2 kg (212 lb) Oxygen Saturation 99% Body Mass Index 35.28 kg/m?? Head: Normal Lungs: Clear to auscultation bilaterally Airway: No apparent abnormalities Heart: Regular rate and rhythm Abdomen: soft, nontender, nondistended Neurologic: alert and oriented x 3 IMPRESSION: Indications for procedure as noted in HPI. PLAN: I discussed in depth with the patient her current clinical situation. Risks of the procedure include but are not limited to sore throat, bleeding, perforation, and complications from anesthesia. The patient understands and she wishes to proceed with the procedure. Her questions were answered. Nancy Warren MD documented in this encounter Procedure Notes * Nancy Warren MD - 04/12/2023 12:03 PM CDTAssociated Order(s): UPPER ENDOSCOPY REPORT [facility] Endoscopy Patient Name: Rebecca Pantoja Procedure Date: 04/12/2023 Date of : 1975 Attending MD: Nancy Warren MD, Procedure: Upper GI endoscopy Indications: Preoperative assessment Providers: Nancy Warren MD Referring MD: Josefina Martin Medicines: Propofol per Anesthesia, Monitored Anesthesia Care Complications: No immediate complications. Procedure: Informed consent was obtained for the procedure, including moderate sedation after risks were discussed. Based on the pre-procedure assessment, including review of the patient's medical history, medications, allergies, and review of systems, the patient was deemed to be an appropriate candidate for sedation. A timeout was performed. Continuous ECG monitoring, pulse oximetry, blood pressure monitoring, and direct observation were performed. The Endoscope was introduced through the mouth, and advanced to the second part of duodenum. The upper GI endoscopy was accomplished without difficulty. The patient tolerated the procedure well. Findings: No gross lesions were noted in the entire esophagus. The Z-line was regular and was found 39 cm from the incisors. No gross lesions were noted in the entire examined stomach. Biopsies were taken with a cold forceps for Helicobacter pylori testing. No gross lesions were noted in the entire examined duodenum. The endoscope was placed in the mid body of the stomach. The gastric balloon was then placed alongside the endoscope into the stomach under direct visualization. The balloon was then insufflated to 600 mL of saline / methylene blue solution. The tubing attachment to the balloon was removed, and the balloon was left in position in the stomach under direct visualization. After this was complete, the endoscope was removed. Impression: - No gross lesions in the entire esophagus. - Z-line regular, 39 cm from the incisors. - No gross lesions in the entire stomach. Biopsied. - No gross lesions in the entire examined duodenum. - Intragastric balloon was placed. Recommendation: - Discharge patient to home (ambulatory). - The findings and recommendations were discussed with the patient. - Return to my office as previously scheduled. Procedure Code(s): --- Professional --- 47093, Esophagogastroduodenoscopy, flexible, transoral; with biopsy, single or multiple 29813, Unlisted procedure, stomach CPT copyright 2020 [employer]. All rights reserved. The codes documented in this report are preliminary and upon draw press operator review may be revised to meet current compliance requirements. Nancy Warren MD 04/12/2023 12:03:01 PM Number of Addenda: [phone] [id number] [place] [address] documented in this encounter OR Notes * Izabela-OP - Lorena Mills RN - 04/12/2023 2:25 PM CDT Pt reports feeling much better. No more pain, just some mild nausea. 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 Clear liquids for the next 24 hours. Then instructed how to progress diet. * Izabela-OP - Lorena Mills RN - 04/12/2023 1:13 PM CDT Pt. With complaints of abdominal cramping. Rating pain a [address] Warren and Dr. Wilson called. Order for pain control obtained. documented in this encounter Plan of Treatment Not on file documented as of this encounter Procedures Procedure Name Priority Date/Time Associated Diagnosis Comments UPPER ENDOSCOPY REPORT 04/12/2023 12:03 PM CDT ME UNLISTED PROCEDURE STOMACH 04/12/2023 12:00 PM CDT Morbid obesity HELICOBACTER PYLORI RAPID UREASE TEST Routine 04/12/2023 11:52 AM CDT Morbid obesity documented in this encounter Results * UPPER ENDOSCOPY REPORT (04/12/2023 12:03 PM CDT) Narrative Procedure Note Nancy Warren MD - 04/12/2023 12:03 PM CDT [facility] Endoscopy Patient Name: Rebecca Pantoja Procedure Date: 04/12/2023 Date of : 1975 Attending MD: Nancy Warren MD, Procedure: Upper GI endoscopy Indications: Preoperative assessment Providers: Nancy Warren MD Referring MD: Josefina Martin Medicines: Propofol per Anesthesia, Monitored Anesthesia Care Complications: No immediate complications. Procedure: Informed consent was obtained for the procedure, including moderate sedation after risks were discussed. Based on the pre-procedure assessment, including review of the patient's medical history, medications, allergies, and review of systems, the patient was deemed to be an appropriate candidate for sedation. A timeout was performed. Continuous ECG monitoring, pulse oximetry, blood pressure monitoring, and direct observation were performed. The Endoscope was introduced through the mouth, and advanced to the second part of duodenum. The upper GI endoscopy was accomplished without difficulty. The patient tolerated the procedure well. Findings: No gross lesions were noted in the entire esophagus. The Z-line was regular and was found 39 cm from the incisors. No gross lesions were noted in the entire examined stomach. Biopsies were taken with a cold forceps for Helicobacter pylori testing. No gross lesions were noted in the entire examined duodenum. The endoscope was placed in the mid body of the stomach. The gastric balloon was then placed alongside the endoscope into the stomach under direct visualization. The balloon was then insufflated to 600 mL of saline / methylene blue solution. The tubing attachment to the balloon was removed, and the balloon was left in position in the stomach under direct visualization. After this was complete, the endoscope was removed. Impression: - No gross lesions in the entire esophagus. - Z-line regular, 39 cm from the incisors. - No gross lesions in the entire stomach. Biopsied. - No gross lesions in the entire examined duodenum. - Intragastric balloon was placed. Recommendation: - Discharge patient to home (ambulatory). - The findings and recommendations were discussed with the patient. - Return to my office as previously scheduled. Procedure Code(s): --- Professional --- 06102, Esophagogastroduodenoscopy, flexible, transoral; with biopsy, single or multiple 83642, Unlisted procedure, stomach CPT copyright 2020 [employer]. All rights reserved. The codes documented in this report are preliminary and upon draw press operator review may be revised to meet current compliance requirements. Nancy Warren MD 04/12/2023 12:03:01 PM Number of Addenda: [id number] [place] [address] Nancy Warren MD GI PROCEDURE ORDER CLARISA * HELICOBACTER PYLORI RAPID UREASE TEST (04/12/2023 11:52 AM CDT) H. PYLORI RAPID UREASE TEST Negative Negative 04/13/2023 12:07 PM CDT [facility] Tissue ENTIRE STOMACH / Unknown Collection / Unknown 04/12/2023 11:52 AM CDT 04/12/2023 12:16 PM CDT Nancy Warren MD MICROBIOLOGY - GEN ERAL ORDERABLES [facility] [employer] [facility] CLIA# [id number] [address] [place] [address] documented in this encounter Visit Diagnoses Diagnosis Morbid obesity Morbid obesity documented in this encounter Administered Medications Inactive Administered Medications - up to 3 most recent administrations Medication Order MAR Action Action Date Dose Rate Site fentaNYL PF (SUBLIMAZE) 50 mcg/mL injection 50 mcg 50 mcg, IV, ONE TIME ONLY, 1 dose, On 04/12/23 at 1315, Stat Given 04/12/2023 1:21 PM CDT 50 mcg Arm, Right documented in this encounter Active and Recently Administered Medications Times are shown in CDT. Scheduled Medication Order 04/10/2023 04/11/2023 04/12/2023 fentaNYL PF (SUBLIMAZE) 50 mcg/mL injection 50 mcg (COMPLETED) 50 mcg, IV, ONE TIME ONLY, 1 dose, On Sat04/12/23 at 1315, Stat 1321 (Given - Provid er: Lorena Mills RN) documented in this encounter Care Teams Glove Examiner Relationship Specialty Start Date End Date Josefina Martin MD [address] [place] [address] PCP - General Family Practice 04/10/23 documented as of this encounter
--- OUTSIDE RECORDS SUMMARY | 2024-10-28 20:59 | XMS_ITS | Encounter Summary ---
Author Organization [facility] Address [address] [place] [address] Care Team Providers Care Case Reviewer Name Role Phone Josefina Martin MD Primary Care Provider [phone] Encounter Details Date Type Department Care Team (Late st Contact Info) Description 04/21/2024 External Device Data [facility] ABSTRACTION Provider, Abstract NO ADDRESS ON FILE Social History Tobacco Use Types Packs/Day Years Used Date Smoking Tobacco: Former Cigarettes Alcohol Use Standard Drinks/Week Comments Not Currently 0 (1 standard drink = 0.6 oz pur e alcohol) Feeling Safe Answer Date Recorded Are you in a relationship wi th someone who hurts you emotionally and/or physically? No 09/27/2023 Sex and Gender Information Value Date Recorded Sex Assigned at Not on file Gender Identity Not on file Sexual Orientation Not on file documented as of this encounter Plan of Treatment Not on file documented as of this encounter Visit Diagnoses Not on filedocumented in this encounter Care Teams Case Reviewer Relationship Specialty Start Date End Date Josefina Martin MD [facility] [address] [place] [address] PCP - General Family Practice 04/10/23 documented as of this encounter
--- OUTSIDE RECORDS SUMMARY | 2024-10-28 20:59 | XMS_ITS | Encounter Summary ---
Author Organization [facility] Address [address] [place] [address] Care Team Providers Care Tool Profiling Machine Set Up Operator Name Role Phone Josefina Martin MD Primary Care Provider [phone] Encounter Details Date Type Department Care Team (Late st Contact Info) Description 07/14/2024 External Device Data STL ABSTRACTION Provider, Abstract [...] on filedocumented in this encounter Care Teams Tool Profiling Machine Set Up Operator Relationship Specialty Start Date End Date Josefina Martin MD [facility] [address] [address] PCP - General Family Practice 04/10/23 documented as of this encounter
--- OUTSIDE RECORDS SUMMARY | 2024-10-28 20:59 | XMS_ITS | Clinical Summary ---
Author Organization [facility] Address [facility] [place] [address] Care Team Providers Care Check And Transfer Beader Name Role Phone Josefina Martin MD [facility] [phone] Allergies Active Allergy Reactions Criticality Noted Date Comments Penicillins Hives,Swelling Medium 01/21/2019 Medications ALPRAZolam (XANAX) 0.25 mg tablet Take 0.25 mg by mouth daily as needed Active HYDROcodone-acet aminophen (NORCO) 5-325 mg per tablet TK 1 TO 2 TS PO Q 6 H PRF PAIN 08/03/2020 Active tamoxifen (NOLVADEX) 20 mg tablet Take 1 tablet (20 mg total) by mouth daily 30 tablet 5 08/24/2020 Active Active Problems Problem Noted Date Diagnosed Date 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 Immunizations Name Administration Dates Next Due Hep A, Adult 11/06/2018 Influenza, Quadrivalent, Spl it, Preservative Free, Intramuscular 07/21/2018 Influenza, Unspecified 07/10/2020 Tdap 11/06/2018 Surgical History Surgery Date Site/Laterality Comments HYSTERECTOMY KNEE SURGERY scope CHOLECYSTECTOMY BREAST LUMPECTOMY Family History Medical History Relation Name Comments Ovarian cancer Mother Relation Name Status Comments Mother Alive Social History Tobacco Use Types Packs/Day Years Used Date Smoking Tobacco: Former Cigarettes 1 15 1 5 - 2009 Smokeless Tobacco: Never Alcohol Use Standard Drinks/Week Comments Yes 0 (1 standard drink = 0.6 oz pur e alcohol) Personal Safety Answer Date Recorded Getting School Help Needed Not on file 01/04 Comments Unknown Sex and Gender Information Value Date Recorded Sex Assigned at Not on file Legal Sex Female 10:28 AM CDT Gender Identity Female 12/29/2018 10:34 AM CDT Sexual Orientation Not on file Obstetrics History Last Filed Vital Signs Vital Sign Reading Time Taken Comments Blood Pressure 125/69 08/24/2020 1:00 PM SNUFF GRINDER AND SCREENER Pulse 65 08/24/2020 1:00 PM SNU[employer] GR[employer]ER [employer] SCREENER Temperature - - Respiratory Rate 16 08/24/2020 1:00 PM SNUFF GRINDER AND SCREENER Oxygen Saturation 97% 08/24/2020 1:00 PM SNUFF GRINDER AND SCREENER Inhaled Oxygen Concentration - - Weight 93.4 kg (206 lb) 08/24/2020 1:00 PM SNUFF GRINDER AND SCREENER Height 166.4 cm (5' 5.5 ) 08/24/2020 1:00 PM SNU[employer] GRINDER [employer] SCREENER Body Mass Index 33.76 08/24/2020 1:00 PM SNUFF GRINDER AND SCREENER Plan of Treatment Not on file Insurance [facility] Care Teams Check And Transfer Beader Relationship Specialty Start Date End Date Josefina Martin MD PCP - General Family Medicine 12/29/18 Neri Van MD Referring Physician Surgery 08/24/20
--- OUTSIDE RECORDS SUMMARY | 2024-10-28 20:59 | XMS_ITS | Encounter Summary ---
Author Organization [facility] Address [address] [place] [address] Care Team Providers Care Railroad Worker Name Role Phone Josefina Martin MD Primary Care Provider [phone] Reason for Visit * Auth/Cert (Routine) Specialty Diagnoses / Procedures Referred By Contac t Referred To Contact Perioperative Diagnoses Morbid obesity morbid obesity Procedures [place] UNLISTED PROCEDURE STOMACH ESOPHAGOGASTRODUODENOSCOPY WITH INTRAGASTRIC [place] [address] [facility] [address] [place] [address] [facility] Endoscopy [address] [place] [address] Referral ID Status Reason Start Date Expiration Date Visits Re quested Visits Authorized [id number] 1 1 Encounter Details Date Type Department Care Team (Late st Contact Info) Description 09/27/2023 12:58 PM ARTS EDUCATION TEACHER Anesthesia Event Formerly [facility], [facility] Endoscopy Services [address] [place] [address] [place] [address] [place] [address] Anesthesia Record Procedure Summary Procedure Name Responsible Anesthesiologist Anesthesia Start Time Anesthesia Stop Time ESOPHAGOGASTRODUODENOSCOPY W ITH INTRAGASTRIC BALLOON REMOVAL (Left: Esophagus) Gayathri Wilson MD 09/27/23 1258 09/27/23 1338 Events Date Time Event Comment 09/27/2023 1158 1258 An Start 1258 An Start Data 1258 In Room This event disp lays the In Room time documented in the Surgical Log. Deleting this event will not remove it from the log but will remove it from the Grid and Graph timeline. 1259 Pre-Induction Immediate pre- induction anesthetic assessment performed. Vital signs as noted on graphic. 1310 An Induction 1312 An Intubation 1313 Anesthesia Ready 1315 Procedure Start This event d isplays the Procedure Start time documented in the Surgical Log. Deleting this event will not remove it from the log but will remove it from the Grid and Graph timeline. 1317 Quick Note 600cc methylene blue emptied from balloon 1326 Procedure Stop This event di splays the Procedure Stop time documented in the Surgical Log. Deleting this event will not remove it from the log but will remove it from the Grid and Graph timeline. 1326 An Extubation Emergence unev entful Awake, spontaneous respirations. Adequate muscle strength demonstrated Adequate tidal volume. Orapharynx suctioned. Extubated with positive pressure ventilation. 1333 Out of Room This event disp lays the Out of Room time documented in the Surgical Log. Deleting this event will not remove it from the log but will remove it from the Grid and Graph timeline. 1337 an stop data 1338 An Stop Meds Name Total lidocaine PF (XYLOCAINE MPF) 2% injectio n 5 mL propofol (DIPRIVAN) injection 420 mg succinycholine (ANECTINE) 140 mg/7 mL iv syringe 100 mg dexamethasone (DECADRON) 4 mg/mL injecti on 4 mg ondansetron (ZOFRAN) 2??mg/mL injection 4 mg lactated ringers infusion 300 mL * Agents Name O2 * Blood No blood administrations on file. Lines, Drains, and Airways Type Details Placement Removal Peripheral IV Orientation: Posteri or, Right; Location: Hand; Device: Angiocath; Gauge: 22 gauge; Needle Length: 1 in length; Insertion Attempts: 1; Patient Tolerance: tolerated well 09/27/23 1154 by Farzad Hough RN 09/27/23 1404 by William Wood RN Endotracheal Airway Type: ETT; Cuff Pressure: minimal occluding volume; Size: 7; Attempts: 1; FOV: I; cm: 22; Device: Straight Blade, Stylet; Blade: 2; Secured: secured with tape; Verification: Auscultated bilateral breath sounds, Equal chest movement, Continuous waveform capnography 09/27/23 1312 by Raisa Montez AA 09/27/23 1326 by Raisa Montez AA documented in this encounter Social History Tobacco [...] on file documented as of this encounter OR Notes * Anesthesia Postprocedure Evaluation - Gayathri Wilson MD - 09/27/2023 1:41 PM CST Post Anesthesia Evaluation Vitals: Vitals Value Taken Time BP 117/75 09/27/23 1338 Temp 36.5 ??C 09/27/23 1337 Resp 19 09/27/23 1340 SpO2 94 % 09/27/23 1340 Pulse 74 09/27/23 1340 Heart Rate 75 bpm 09/27/23 1340 Vitals shown include unvalidated device data. Pain Rating: Anesthesia Post Evaluation Patient participation: patient was able to participate in the post op evaluation Level of consciousness: 0 = alert, responsive, answers simple questions appropriately, able to perform simple tasks Airway patency: patent Nausea or Vomiting: none Cardiovascular status: regular rate and rhythm Respiratory status: no respiratory symptoms Hydration status: well hydrated No notable events documented. Gayathri Wilson MD EDUCATION TEACHER * Anesthesia Handoff - Raisa Montez AA - 09/27/2023 1:38 PM CST Post-Anesthetic transfer of care report elements to appropriate post-anesthesia recovery environment completed in accordance with procedure. I completed my handoff to the receiving nurse during which we: 1. Identified the patient 2. Identified the responsible provider 3. Reviewed the pertinent medical history 4. Discussed the surgical course 5. Reviewed intra-op anesthesia management and issues during anesthesia 6. Set expectations for post-procedure period 7. Orders as necessary and appropriate for continuation of care are present in Epic. 8. Allowed opportunity for questions and acknowledgement of understanding. Vital Signs: BP: (!) 91/69 (09/27/2023 1:37 PM) Pulse: 69 (09/27/2023 1:37 PM) Temp: 36.5 ??C (09/27/2023 1:37 PM) Resp: 13 (09/27/2023 1:37 PM) SpO2: 94 % (09/27/2023 1:37 PM) 1:38 PM VERN Castro EDUCATION TEACHER * Anesthesia Preprocedure Evaluation - Gayathri Wilson MD - 09/27/2023 11:58 AM CST Location of Pre-Procedure Assessment: Endoscopy. Anesthesia History: anesthesia history negative. Endocrine History: neg endo/other ROS. Renal History: Negative. Pulmonary History: neg pulmonary ROS. Cardiovascular History: neg cardio ROS. GI/Hepatic History: negative GI/hepatic ROS. Neuro/Psych History: neg neuro/psych ROS. Musculoskeletal History: negative musculoskeletal ROS. Hematologic/Oncologic History: negative hematology/oncology ROS. Obstetric History: Nutrition Status: neg nutritional Other Findings: [facility] PHYSICAL EXAM: PHYSICAL EXAM: Habitus: Obese Mental Status: Oriented and Alert Mallampati:: I TM distance:: >3 FB Neck ROM:: Full Cardiovascular normal Dental normal Pulmonary normal obesity Anesthesia Plan ASA Final: 2 General NPO status > 8 hours Anesthetic plan and risks discussed with Patient. [facility] FINAL DOS EXAM: ASA score (Day of Surgery): 2 Mallampati:: I Cardiovascular Neg Pulmonary Neg Plan: General EDUCATION TEACHER documented in this encounter Plan of Treatment Not on file documented as of this encounter Visit Diagnoses Not on filedocumented in this encounter Administered Medications Inactive Administered Medications - up to 3 most recent administrations Medication Order MAR Action Action Date Dose Rate Site dexAMETHasone (DECADRON) injection IV, INTRA-PROCEDURE PRN, Starting on Sat09/27/23 at 1320, Until Sat09/27/23 at 1338, Routine, Anesthesia Intra-op Given 09/27/2023 1:20 PM ARTS EDUCATION TEACHER 4 mg lactated ringers infusion IV, INTRA-PROCEDURE CONTINUOUS PRN, Starting on Sat09/27/23 at 1257, Until Sat09/27/23 at 1338, Routine, Anesthesia Intra-op New Bag 09/27/2023 12:57 PM ARTS EDUCATION TEACHER lidocaine PF 2% (XYLOCAINE MPF) injection IV, INTRA-PROCEDURE PRN, Starting on Sat09/27/23 at 1310, Until Sat09/27/23 at 1338, Routine, Anesthesia Intra-op Given 09/27/2023 1:10 PM ARTS EDUCATION TEACHER 5 mL ondansetron (ZOFRAN) injection IV, INTRA-PROCEDURE PRN, Starting on Sat09/27/23 at 1320, Until Sat09/27/23 at 1338, Routine, Anesthesia Intra-op Given 09/27/2023 1:20 PM ARTS EDUCATION TEACHER 4 mg propofoL (DIPRIVAN) injection IV, INTRA-PROCEDURE PRN, Starting on Sat09/27/23 at 1310, Until Sat09/27/23 at 1338, Anesthesia Intra-op Bolus 09/27/2023 1:22 PM ARTS EDUCATION TEACHER 30 mg Bolus 09/27/2023 1:20 PM ARTS EDUCATION TEACHER 40 mg Bolus 09/27/2023 1:17 PM ARTS EDUCATION TEACHER 100 mg succinylcholine Chloride (ANECTINE) 140 mg/7 mL (20 mg/mL) injection IV, INTRA-PROCEDURE PRN, Starting on Sat09/27/23 at 1310, Until Sat09/27/23 at 1338, Routine, Anesthesia Intra-op Given 09/27/2023 1:10 PM ARTS EDUCATION TEACHER 100 mg documented in this encounter Care Teams Railroad Worker Relationship Specialty Start Date End Date Josefina Martin MD [address] [facility] [address] [place] [address] PCP - General Family Practice 04/10/23 documented as of this encounter
--- OUTSIDE RECORDS SUMMARY | 2024-10-28 20:59 | XMS_ITS | Encounter Summary ---
Author Organization [facility] Address [address] [place] [address] Care Team Providers Care Vascular Surgeon Name Role Phone Unavailable Primary Care Provider Unavailabl e Encounter Details Date Type Department Care Team (Late st Contact Info) Description 04/03/[address] [facility] Bariatrics [facility] [address] [address] [facility] [address] [place] [address] Kait Stanford, RN Social History Tobacco Use Types Packs/Day Years Used Date Smoking Tobacco: Never Assessed Sex and Gender Information Value Date Recorded Sex Assigned at Not on file Gender Identity Not on file Sexual Orientation Not on file documented as of this encounter Plan of Treatment Not on file documented as of this encounter Visit Diagnoses Not on filedocumented in this encounter
--- OUTSIDE RECORDS SUMMARY | 2024-10-28 20:59 | XMS_ITS | Encounter Summary ---
Author Organization [facility] Address [address] [place] [address] Care Team Providers Care Fast Food Worker Name Role Phone Josefina Martin MD Primary Care Provider [phone] Encounter Details Date Type Department Care Team (Late st Contact Info) Description 06/17/2024 External Device Data STL ABSTRACTION Provider, Abstract [...] on filedocumented in this encounter Care Teams Fast Food Worker Relationship Specialty Start Date End Date Josefina Martin MD [facility] [address] [place] [address] PCP - General Family Practice 04/10/23 documented as of this encounter
--- OUTSIDE RECORDS SUMMARY | 2024-10-28 20:59 | XMS_ITS | Encounter Summary ---
Author Organization [facility] Address [address] [place] [address] Care Team Providers Care Tile And Marble Setter Name Role Phone Josefina Martin MD Primary Care Provider [phone] Encounter Details Date Type Department Care Team (Late st Contact Info) Description 12/12/2023 External Device Data STL ABSTRACTION Provider, Abstract [...] on filedocumented in this encounter Care Teams Tile And Marble Setter Relationship Specialty Start Date End Date Josefina Martin MD [facility] [address] [address] PCP - General Family Practice 04/10/23 documented as of this encounter
--- OUTSIDE RECORDS SUMMARY | 2024-10-28 20:59 | XMS_ITS | Encounter Summary ---
Author Organization [facility] Address [address] [place] [address] Care Team Providers Care Production Control Coordinating Clerk Name Role Phone Josefina Martin MD Primary Care Provider [phone] Encounter Details Date Type Department Care Team (Late st Contact Info) Description 06/16/2024 External Device Data STL ABSTRACTION Provider, Abstract [...] filedocumented in this encounter Care Teams Production Control Coordinating Clerk Relationship Specialty Start Date End Date Josefina Martin MD [facility] [address] [place] [address] PCP - General Family Practice 04/10/23 documented as of this encounter
--- OUTSIDE RECORDS SUMMARY | 2024-10-28 20:59 | XMS_ITS | Encounter Summary ---
Author Organization [facility] Address [address] Cook: Epic Prelude ADT [place]AR [address] Care Team Providers Care Retail Support Manager Name Role Phone Unavailable Primary Care Provider Unavailabl e Encounter Details Date Type Department Care Team (Latest Contact Info) Description 04/09/2023 Travel Social History Tobacco Use Types Packs/Day Years Used Date Smoking Tobacco: Never Assessed Sex and Gender Information Value Date Recorded Sex Assigned at Not on file Gender Identity Not on file Sexual Orientation Not on file COVID-19 Exposure Response Date Recorded In the last 10 days, have yo u been in contact with someone who was confirmed or suspected to have Coronavirus/COVID-19? Unable to assess 04/09/2023 11:42 AM CDT documented as of this encounter Plan of Treatment Not on file documented as of this encounter Visit Diagnoses Not on filedocumented in this encounter
--- OUTSIDE RECORDS SUMMARY | 2024-10-28 20:59 | XMS_ITS | Encounter Summary ---
Author Organization [facility] Address [address] [place] [address] Care Team Providers Care Transferrer Name Role Phone Josefina Martin MD Primary Care Provider [phone] Reason for Visit * Auth/Cert (Routine) Specialty Diagnoses / Procedures Referred By Contac t Referred To Contact Perioperative Diagnoses Morbid obesity morbid obesity Procedures [place] UNLISTED PROCEDURE STOMACH ESOPHAGOGASTRODUODENOSCOPY WITH INTRAG[place]STRIC [place] [address] [place] [address] [place] [address] [facility] Endoscopy [address] [place] [address] Referral ID Status Reason Start Date Expiration Date Visits Re quested Visits Authorized [id number] 1 1 Encounter Details Date Type Department Care Team (Latest Contact Info) Description 09/27/2023 11:09 AM BIOCHEMIST - 09/27/2023 2:31 PM [facility] Hospital Encounter [facility] Endoscopy Services [address] [place] [address] [place] [address] [place] [address] [place] [address] Morbid obesity Discharge Disposition: Home or Self Care Social History Tobacco Use Types Packs/Day Years [...] Sign Reading Time Taken Comments Blood Pressure 118/96 09/27/2023 1:58 PM BIOCHEMIST Pulse 77 09/27/2023 1:58 PM BIOCHEMIST Temperature 36.5 ??C (97.7 ??F) 09/27/2023 1:37 PM CS T Respiratory Rate 29 09/27/2023 1:58 PM BIOCHEMIST Oxygen Saturation 96% 09/27/2023 1:58 PM BIOCHEMIST Inhaled Oxygen Concentration - - Weight 86.2 kg (190 lb) 09/27/2023 11:20 AM BIOCHEMIST Height 165.1 cm (5' 5 ) 09/27/2023 11:20 AM BIOCHEMIST Body Mass Index 31.62 09/27/2023 11:20 AM BIOCHEMIST documented in this encounter Discharge Instructions * Discharge Instructions* Nancy Warren MD - 09/27/2023 11:50 AM BIOCHEMIST ENDOSCOPY [facility] DISCHARGE INSTRUCTIONS You have received [...] - Return to clinic as previously scheduled HEMIST documented in this encounter Medications at Time of Discharge Medication Sig Dispensed Refills Start Date End Date HYDROcodone-acetaminophen (HYCET) 7.5-325 mg/15 mL SolutionIndications:Morbid obesity Take 15 mL by mouth every 6 hours as needed for Pain. Max Daily Amount: 60 mL 280 mL 04/12/2023 documented as of this encounter H&P Notes * Nancy Warren MD - 09/27/2023 11:49 AM CST History and Physical Patient: Rebecca Pantoja : 1975 Date: 09/27/2023 HISTORY OF PRESENT ILLNESS: Patient is a 48 y.o. female scheduled for EGD for balloon removal. No past medical history on file. Past Surgical History: Procedure Laterality Date HX CHOLECYSTECTOMY HX HYSTERECTOMY HX KNEE REPLACEMENT [place] UNLISTED PROCEDURE STOMACH N/A 04/12/2023 ESOPHAGOGASTRODUODENOSCOPY WITH INTRAGASTRIC BALLOON PLACEMENT [facility] Medications Prior to Admission Medication Sig Dispense Refill Last Dose HYDROcodone-acetaminophen (HYCET) 7.5-325 mg/15 mL Solution Take 15 mL by mouth every 6 hours as needed for Pain. Max Daily Amount: 60 mL 280 mL 0 > Month Allergies Allergen Reactions Penicillins Hives Social History [...] Alcohol use: Not Currently Drug use: Not on file Comment: 1 gummy per night Sexual activity: Not on file Other Topics [...] pain Cardiovascular: no angina, no palpitation Gastrointestinal: positive for heartburn; no dysphagia, no abdominal pain Musculoskeletal: no muscle pain PHYSICAL EXAM: Blood Pressure 114/70 Pulse 66 Temperature 97.7 ??F (36.5 ??C) (Temporal) Respiration 18 Height 5' 5 (1.651 m) Weight 86.2 kg (190 lb) Oxygen Saturation 97% Body Mass Index 31.62 kg/m?? Head: Normal Lungs: Clear to auscultation [...] throat, bleeding, perforation, and complications from anesthesia. She understands and wishes to proceed with the procedure. All of her questions were answered. Nancy Warren MD HEMIST documented in this encounter Procedure Notes * Nancy Warren MD - 10/11/2023 8:13 AM CSTAssociated Order(s): UPPER ENDOSCOPY REPORT [facility] Endoscopy Patient Name: Rebecca Pantoja Procedure Date: 09/27/2023 Date of : 1975 Attending MD: Nancy Warren MD, Procedure: Upper GI endoscopy Indications: Heartburn Providers: Nancy Warren MD Referring MD: Josefina Martin MD Medicines: General Anesthesia Complications: No immediate complications. Procedure: Informed consent [...] were noted in the entire examined stomach. The intragastric balloon was visualized. The catheter was used to puncture and drain the balloon. 600 mL of saline / methylene blue solution was drained. A snare was secured to the balloon. The balloon was removed with no complications. No gross lesions were noted in the entire examined duodenum. Impression: - No gross lesions in the entire esophagus. - Z-line regular, 39 cm from the incisors. - No gross lesions in the entire stomach. - No gross lesions in the entire examined duodenum. - Intragastric balloon was removed. - No specimens collected. Recommendation: - Discharge patient to home (ambulatory). - Return to my office as previously scheduled. Procedure Code(s): --- Professional --- 38632, Esophagogastroduodenoscopy, flexible, transoral; with removal of intragastric bariatric balloon(s) CPT copyright 2020 [employer]. All rights reserved. The codes documented in this report are preliminary and upon sales support administrator review may be revised to meet current compliance requirements. Nancy Warren MD 10/11/2023 8:13:27 AM Number of Addenda: [id number] [place] [address] HEMIST documented in this encounter OR Notes * Izabela-OP - Cortney Hamilton RN - 09/27/2023 1:14 PM CST Intubation in progress HEMIST documented in this encounter Plan of Treatment Not on file documented as of this encounter Procedures Procedure Name Priority Date/Time Associated Diagnosis Comments UPPER ENDOSCOPY REPORT 10/11/2023 8:13 AM BIOCHEMIST HELICOBACTER PYLORI RAPID UREASE TEST Routine 09/27/2023 1:20 PM BIOCHEMIST Morbid obesity SD UNLISTED PROCEDURE STOMACH 09/27/2023 12:15 PM BIOCHEMIST Morbid obesity documented in this encounter Results * UPPER ENDOSCOPY REPORT (10/11/2023 8:13 AM BIOCHEMIST) Narrative Procedure Note Nancy Warren MD - 10/11/2023 8:13 AM CST [facility] Endoscopy Patient Name: Rebecca Pantoja Procedure Date: 09/27/2023 Date of : 1975 Attending MD: Nancy Warren MD, Procedure: Upper GI endoscopy Indications: Heartburn Providers: Nancy Warren MD Referring MD: Josefina Martin MD Medicines: General Anesthesia Complications: No immediate complications. Procedure: Informed consent [...] were noted in the entire examined stomach. The intragastric balloon was visualized. The catheter was used to puncture and drain the balloon. 600 mL of saline / methylene blue solution was drained. A snare was secured to the balloon. The balloon was removed with no complications. No gross lesions were noted in the entire examined duodenum. Impression: - No gross lesions in the entire esophagus. - Z-line regular, 39 cm from the incisors. - No gross lesions in the entire stomach. - No gross lesions in the entire examined duodenum. - Intragastric balloon was removed. - No specimens collected. Recommendation: - Discharge patient to home (ambulatory). - Return to my office as previously scheduled. Procedure Code(s): --- Professional --- 42594, Esophagogastroduodenoscopy, flexible, transoral; with removal of intragastric bariatric balloon(s) CPT copyright 2020 [employer]. All rights reserved. The codes documented in this report are preliminary and upon sales support administrator review may be revised to meet current compliance requirements. Nancy Warren MD 10/11/2023 8:13:27 AM Number of Addenda: 0 [id number] [place] [address] Nancy Warren MD GI PROCEDURE ORDER CLARISA * HELICOBACTER PYLORI RAPID UREASE TEST (09/27/2023 1:20 PM BIOCHEMIST) H. PYLORI RAPID UREASE TEST Negative Negative 09/28/2023 2:55 PM BIOCHEMIST [facility] Tissue ENTIRE STOMACH / Unknown Collection / Unknown 09/27/2023 1:20 PM BIOCHEMIST 09/27/2023 2:20 PM BIOCHEMIST Nancy Warren MD MICROBIOLOGY - GEN ERAL ORDERABLES [facility] CLIA# [id number] [address] [place] [address] documented in this encounter Visit Diagnoses Diagnosis Morbid obesity documented in this encounter Care Teams Transferrer Relationship Specialty Start Date End Date Josefina Martin MD [address] [place] [address] PCP - General Family Practice 04/10/23 documented as of this encounter
--- OUTSIDE RECORDS SUMMARY | 2024-10-28 20:59 | XMS_ITS | Encounter Summary ---
Author Organization [facility] Address [address] [place] [address] Dr. Cook: Epic Prelude ADT ALEXANDRA SALAZAR [address] Care Team Providers Care Molder Machine Tender Name Role Phone Josefina Martin MD Primary Care Provider [phone] Encounter Details Date Type Department Care Team (Latest Contact Info) Description 04/12/2023 Travel Social History Tobacco Use Types Packs/Day [...] on filedocumented in this encounter Care Teams Molder Machine Tender Relationship Specialty Start Date End Date Josefina Martin MD [address] [facility] [address] [facility] [address] [place] [address] PCP - General Family Practice 04/10/23 documented as of this encounter
--- OUTSIDE RECORDS SUMMARY | 2024-10-28 20:59 | XMS_ITS | Encounter Summary ---
Author Organization [facility] Address [address] [place] [address] Care Team Providers Care Refractory Manager Name Role Phone Josefina Martin MD Primary Care Provider [phone] Encounter Details Date Type Department Care Team (Late st Contact Info) Description 10/24/2023 External Device Data STL ABSTRACTION Provider, Abstract [...] on filedocumented in this encounter Care Teams Refractory Manager Relationship Specialty Start Date End Date Josefina Martin MD [facility] [address] [address] PCP - General Family Practice 04/10/23 documented as of this encounter
--- OUTSIDE RECORDS SUMMARY | 2024-10-28 20:59 | XMS_ITS | Encounter Summary ---
Author Organization [facility] Address [address] [place] [address] Care Team Providers Care Rug Weaver Name Role Phone Josefina Martin MD Primary Care Provider [phone] Reason for Visit * Auth/Cert (Routine) Specialty Diagnoses / Procedures Referred By Contac t Referred To Contact Perioperative Diagnoses Morbid obesity morbid obesity Procedures [place] UNLISTED PROCEDURE STOMACH ESOPHAGOGASTRODUODENOSCOPY WITH INTRAGASTRIC [place] [address] [place] [address] [place] [address] [facility] Endoscopy [address] [place] [address] Referral ID Status Reason Start Date Expiration Date Visits Re quested Visits Authorized [id number] 1 1 Encounter Details Date Type Department Care Team (Latest Contact Info) Description 09/27/2023 12:15 PM ARMATURE REPAIRER - 09/27/2023 1:05 PM ARMATURE REPAIRER Surgery [facility] Endoscopy Services [address] [place] [address] [place] [address] [place] [address] [place] [address] ESOPHAGOGASTRODUODENOSCOPY WITH INTRAGASTRIC BALLOON REMOVAL Surgery Details Date/Time Status Location OR Service Patient Class Case Cl ass Case Type Trauma Case? 09/27/2023 12:15 PM Posted [facility] ENDOSCOPY GI 02 Endoscopy Outpatient Elective No Panel 1 Procedure LRB Anes Op Region Wound Class Comments ESOPHAGOGASTRODUODENOSCOPY W ITH INTRAGASTRIC BALLOON REMOVAL Left General Esophagus Surgeon Surgeon Role Service Panel [...] Sign Reading Time Taken Comments Blood Pressure 114/70 09/27/2023 11:20 AM ARMATURE REPAIRER Pulse 66 09/27/2023 11:20 AM ARMATURE REPAIRER Temperature 36.5 ??C (97.7 ??F) 09/27/2023 11:[address] Respiratory Rate 18 09/27/2023 11:20 AM ARMATURE REPAIRER Oxygen Saturation 97% 09/27/2023 11:20 AM ARMATURE REPAIRER Inhaled Oxygen Concentration - - Weight 86.2 kg (190 lb) 09/27/2023 11:20 AM ARMATURE REPAIRER Height 165.1 cm (5' 5 ) 09/27/2023 11:20 AM ARMATURE REPAIRER Body Mass Index 31.62 09/27/2023 11:20 AM ARMATURE REPAIRER documented in this encounter Discharge Instructions * Discharge Instructions* Nancy Warren MD - 09/27/2023 11:50 AM ARMATURE REPAIRER ENDOSCOPY CENTER DISCHARGE INSTRUCTIONS You have received [...] - Return to clinic as previously scheduled TURE REPAIRER documented in this encounter Medications at Time [...] HX CHOLECYSTECTOMY HX HYSTERECTOMY HX KNEE REPLACEMENT OH UNLISTED PROCEDURE STOMACH N/A 04/12/2023 ESOPHAGOGASTRODUODENOSCOPY WITH INTRAGASTRIC BALLOON PLACEMENT performed by Nancy Warren MDat [facility] ENDOSCOPY Medications Prior to Admission Medication [...] her questions were answered. Nancy Warren MD TURE REPAIRER documented in this encounter Procedure Notes * Nancy Warren MD - 10/11/2023 8:13 AM CSTAssociated Order(s): UPPER ENDOSCOPY REPORT [facility] Endoscopy Patient Name: Rebecca Pantoja Procedure [...] previously scheduled. Procedure Code(s): --- Professional --- 94193, Esophagogastroduodenoscopy, flexible, transoral; with removal of intragastric bariatric balloon(s) CPT copyright 2020 [employer]. All rights reserved. The codes documented in this report are preliminary and upon agronomy specialist review may be revised to meet current compliance requirements. Nancy Warren MD 10/11/2023 8:13:27 AM Number of Addenda: [phone] [place] [address] TURE REPAIRER documented in this encounter OR Notes * Izabela-OP - Cortney Hamilton RN - 09/27/2023 1:14 PM CST Intubation in progress TURE REPAIRER documented in this encounter Plan of Treatment Not on file documented as of this encounter Procedures Procedure Name Priority Date/Time Associated Diagnosis Comments UPPER ENDOSCOPY REPORT 10/11/2023 8:13 AM ARMATURE REPAIRER HELICOBACTER PYLORI RAPID UREASE TEST Routine 09/27/2023 1:20 PM ARMATURE REPAIRER Morbid obesity OH UNLISTED PROCEDURE STOMACH 09/27/2023 12:15 PM ARMATURE REPAIRER Morbid obesity documented in this encounter Results * UPPER ENDOSCOPY REPORT (10/11/2023 8:13 AM ARMATURE REPAIRER) Narrative Procedure Note Nancy Warren MD - 10/11/2023 8:13 AM CST [facility] Endoscopy Patient Name: Rebecca Pantoja Procedure [...] previously scheduled. Procedure Code(s): --- Professional --- 52242, Esophagogastroduodenoscopy, flexible, transoral; with removal of intragastric bariatric balloon(s) CPT copyright 2020 [employer]. All rights reserved. The codes documented in this report are preliminary and upon agronomy specialist review may be revised to meet current compliance requirements. Nancy Warren MD 10/11/2023 8:13:27 AM Number of Addenda: [phone] [place] [address] Nancy Warren MD GI PROCEDURE ORDER CLARISA * HELICOBACTER PYLORI RAPID UREASE TEST (09/27/2023 1:20 PM ARMATURE REPAIRER) H. PYLORI RAPID UREASE TEST Negative Negative 09/28/2023 2:55 PM ARMATURE REPAIRER [facility] Tissue ENTIRE STOMACH / Unknown Collection / Unknown 09/27/2023 1:20 PM ARMATURE REPAIRER 09/27/2023 2:20 PM ARMATURE REPAIRER Nancy Warren MD MICROBIOLOGY - GEN ERAL ORDERABLES [facility]# [id number] [address] [place] [address] documented in this encounter Visit Diagnoses Diagnosis Morbid obesity Morbid obesity documented in this encounter Care Teams Rug Weaver Relationship Specialty Start Date End Date Josefina Martin MD [address] [facility] [address] [place] [address] PCP - General Family Practice 04/10/23 documented as of this encounter
--- OUTSIDE RECORDS SUMMARY | 2024-10-28 20:59 | XMS_ITS | Encounter Summary ---
Author Organization [facility] Address [address] [place] [address] Care Team Providers Care Quarter Backer Name Role Phone Josefina Martin MD Primary Care Provider [phone] Reason for Visit * Auth/Cert (Routine) Specialty Diagnoses / Procedures Referred By Jessica t Referred To Contact Perioperative Diagnoses Morbid obesity Morbid obesity [E66.01] morbid obesity Procedures DE UNLISTED PROCEDURE STOMACH ESOPHAGOGASTRODUODENOSCOPY WITH INTRAGASTRIC BALLOON PLACEMENT GASTRIC [place] [address] [place] [address] [place] [address] [facility] Endoscopy [address] [place] [address] Referral ID Status Reason Start Date Expiration Date Visits Re quested Visits Authorized [id number] 1 1 Encounter Details Date Type Department Care Team (Latest Contact Info) Description 04/12/2023 9:57 AM CDT - 04/12/2023 2:27 PM CDT Hospital Encounter [facility] Endoscopy Services [address] [place] [address] [place] [address] [place] [address] [place] [address] Morbid obesity Discharge Disposition: Home [...] Sign Reading Time Taken Comments Blood Pressure 132/70 04/12/2023 1:45 PM CDT Pulse 65 04/12/2023 1:45 PM CDT Temperature 36.1 ??C (97 ??F) 04/12/2023 12:04 PM CDT Respiratory Rate 12 04/12/2023 1:45 PM CDT Oxygen Saturation 100% 04/12/2023 1:45 PM CDT Inhaled Oxygen Concentration - - [...] Admission home medications at this time R Jontaan Dennis documented in this encounter H&P Notes * Nancy Warren MD - 04/12/2023 10:49 AM CDT [facility] History and Physical Patient: Rebecca Pantoja : [...] 12:03 PM CDTAssociated Order(s): UPPER ENDOSCOPY REPORT [facility] Endoscopy Patient Name: Rebecca Pantoja [...] previously scheduled. Procedure Code(s): --- Professional --- 77349, Esophagogastroduodenoscopy, flexible, transoral; with biopsy, single or multiple 56612, Unlisted procedure, stomach CPT copyright 2020 [employer]. All rights reserved. The codes documented in this report are preliminary and upon him coder review may be revised to meet current compliance requirements. Nancy Warren MD 04/12/2023 12:03:01 PM Number of Addenda: 0 [phone], [place] [address] documented in this encounter OR Notes * Izabela-OP - Lorena Mills RN - 04/12/2023 2:25 PM CDT Pt reports feeling much better. No more pain, just some mild nausea. Discharged to home with discharge instructions and company driver. Clear liquids for the next 24 [...] UPPER ENDOSCOPY REPORT 04/12/2023 12:03 PM CDT DE UNLISTED PROCEDURE STOMACH 04/12/2023 12:00 PM CDT Morbid obesity HELICOBACTER PYLORI RAPID UREASE TEST Routine 04/12/2023 11:52 AM CDT Morbid obesity documented in this encounter Results * UPPER ENDOSCOPY REPORT (04/12/2023 12:03 PM CDT) Narrative Procedure Note Nancy Warren MD - 04/12/2023 12:03 PM CDT [facility] Endoscopy Patient Name: Rebecca Pantoja [...] previously scheduled. Procedure Code(s): --- Professional --- 52661, Esophagogastroduodenoscopy, flexible, transoral; with biopsy, single or multiple 71518, Unlisted procedure, stomach CPT copyright 2020 [employer]. All rights reserved. The codes documented in this report are preliminary and upon him coder review may be revised to meet current compliance requirements. Nancy Warren MD 04/12/2023 12:03:01 PM Number of Addenda: [phone] [place] [address] Nancy Warren MD GI PROCEDURE ORDER CLARISA * HELICOBACTER PYLORI RAPID UREASE TEST (04/12/2023 11:52 AM CDT) H. PYLORI RAPID UREASE TEST Negative Negative 04/13/2023 12:07 PM CDT [facility] Tissue ENTIRE STOMACH / Unknown Collection / Unknown 04/12/2023 11:52 AM CDT 04/12/2023 12:16 PM CDT Nancy Warren MD MICROBIOLOGY - GEN ERAL ORDERABLES [facility] [id number] [address] [place] [address] documented in this encounter Visit Diagnoses Diagnosis Morbid obesity documented in this encounter Administered Medications Inactive Administered Medications - up to 3 most recent administrations Medication Order MAR Action Action Date Dose Rate Site fentaNYL PF (SUBLIMAZE) 50 mcg/mL injection 50 mcg 50 mcg, IV, ONE TIME ONLY, 1 dose, On Sat04/12/23 at 1315, Stat Given 04/12/2023 1:21 PM [...] RN) documented in this encounter Care Teams Quarter Backer Relationship Specialty Start Date End Date Josefina Martin MD [facility] [facility] [address] [place] [address] PCP - General Family Practice 04/10/23 documented as of this encounter
--- OUTSIDE RECORDS SUMMARY | 2024-10-28 20:59 | XMS_ITS | Encounter Summary ---
Author Organization [facility] Address [address] [place] [address] Care Team Providers Care Medicaid Business Analyst Name Role Phone Josefina Martin MD Primary Care Provider [phone] Encounter Details Date Type Department Care Team (Late st Contact Info) Description 12/06/2023 External Device Data STL ABSTRACTION Provider, Abstract [...] on filedocumented in this encounter Care Teams Medicaid Business Analyst Relationship Specialty Start Date End Date Josefina Martin MD [facility]7 [facility] [address] [address] PCP - General Family Practice 04/10/23 documented as of this encounter
--- OUTSIDE RECORDS SUMMARY | 2024-10-28 20:59 | XMS_ITS | Encounter Summary ---
Author Organization [facility] Address [address] [place] [address] Care Team Providers Care Operating Systems Specialist Name Role Phone Josefina Martin MD Primary Care Provider [phone] Reason for Visit * Auth/Cert (Routine) Specialty Diagnoses / Procedures Referred By Jessica t Referred To Contact Perioperative Diagnoses Morbid obesity Morbid obesity [E66.01] morbid obesity Procedures RI UNLISTED PROCEDURE STOMACH ESOPHAGOGASTRODUODENOSCOPY WITH INTRAGASTRIC BALLOON PLACEMENT GASTRIC [place] [address] [place] [address] [place] [address] [facility] Endoscopy [address] [place] [address] Referral ID Status Reason Start Date Expiration Date Visits Re quested Visits Authorized [id number] 1 1 Encounter Details Date Type Department Care Team (Late st Contact Info) Description 04/12/2023 11:43 AM CDT Anesthesia Event [facility] Endoscopy Services [address] [place] [address] [place] [address] [place] [address] Anesthesia Record Procedure Summary Procedure Name Responsible Anesthesiologist Anesthesia Start Time Anesthesia Stop Time ESOPHAGOGASTRODUODENOSCOPY W ITH INTRAGASTRIC BALLOON PLACEMENT (Esophagus) Gayathri Wilson MD 04/12/23 1143 04/12/23 1205 Events Date Time Event Comment 04/12/2023 1041 1143 An Start 1146 In Room This event disp lays the In Room time documented in the Surgical Log. Deleting this event will not remove it from the log but will remove it from the Grid and Graph timeline. 1147 An Start Data 1148 Pre-Induction Immediate pre- induction anesthetic assessment performed. Vital signs as noted on graphic. 1148 Anesthesia Ready 1148 An Induction 1151 Procedure Start This event d isplays the Procedure Start time documented in the Surgical Log. Deleting this event will not remove it from the log but will remove it from the Grid and Graph timeline. 1200 an stop data 1200 Procedure Stop This event di splays the Procedure Stop time documented in the Surgical Log. Deleting this event will not remove it from the log but will remove it from the Grid and Graph timeline. 1202 Out of Room This event disp lays the Out of Room time documented in the Surgical Log. Deleting this event will not remove it from the log but will remove it from the Grid and Graph timeline. 1205 An Stop Meds Name Total lidocaine PF (XYLOCAINE MPF) 2% injectio n 10 mL propofol (DIPRIVAN) injection 260 mg lactated ringers infusion 0 mL * Agents Name O2 * Blood No blood administrations on file. Lines, Drains, and Airways Type Details Placement Removal Peripheral IV Orientation: Anterio r, Right; Location: Arm; Device: Angiocath; Gauge: 22 gauge; Insertion Attempts: 2; Patient Tolerance: tolerated well 04/12/23 1103 by Joyce Jean RN 04/12/23 1424 by Lorena Mills RN documented in this encounter Social History Tobacco [...] of this encounter OR Notes * Anesthesia Handoff - Gayathri Wilson MD - 04/12/2023 12:07 PM CDT Post-Anesthetic transfer of care report elements to [...] and acknowledgement of understanding. Vital Signs: BP: 121/73 (04/12/2023 12:04 PM) Pulse: 65 (04/12/2023 12:04 PM) Heart Rate: 68 bpm (04/12/2023 12:04 PM) Temp: 36.1 ??C (04/12/2023 12:04 PM) Resp: 21 (04/12/2023 12:04 PM) SpO2: 96 % (04/12/2023 12:04 PM) 12:07 PM Gayathri Wilson MD * Anesthesia Postprocedure Evaluation - Gayathri Wilson MD - 04/12/2023 12:06 PM CDT Post Anesthesia Evaluation Vitals: Vitals Value Taken Time BP 121/73 04/12/23 1204 Temp 36.1 ??C 04/12/23 1204 Resp 20 04/12/23 1206 SpO2 98 % 04/12/23 1206 Pulse 63 04/12/23 1206 Heart Rate 63 bpm 04/12/23 1206 Vitals shown include unvalidated device data. Pain Rating: Anesthesia Post Evaluation Patient participation: patient was able to participate in the post op evaluation Level of consciousness: 0 = alert, responsive, answers simple questions appropriately, able to perform simple tasks Pain management: adequate Airway patency: patent Nausea or Vomiting: none Cardiovascular status: regular rate and rhythm Respiratory status: no respiratory symptoms Hydration status: well hydrated No notable events documented. Gayathri Wilson MD * Anesthesia Preprocedure Evaluation - Gayathri Wilson MD - 04/12/2023 10:40 AM CDT Location of Pre-Procedure Assessment: Endoscopy. Anesthesia History: anesthesia history negative. Endocrine History: neg endo/other ROS. Renal History: Negative. Pulmonary History: neg pulmonary ROS. Cardiovascular History: neg cardio ROS. GI/Hepatic History: negative GI/hepatic ROS. Neuro/Psych History: neg neuro/psych ROS. Musculoskeletal History: negative musculoskeletal ROS. Hematologic/Oncologic History: negative hematology/oncology ROS. Obstetric History: Nutrition Status: neg nutritional Other Findings: [facility] PHYSICAL EXAM: PHYSICAL EXAM: Habitus: Obese Mental Status: Oriented and Alert Mallampati:: I TM distance:: >3 FB Neck ROM:: Full Cardiovascular normal Dental normal Pulmonary normal obesity Anesthesia Plan ASA Final: 2 General NPO status > 8 hours Anesthetic plan and risks discussed with Patient. [facility] FINAL DOS EXAM: ASA score (Day of Surgery): 2 Mallampati:: I Cardiovascular Neg Pulmonary Neg Plan: General documented in this encounter Miscellaneous Notes * Addendum Note - Gayathri Wilson MD - 04/12/2023 12:07 PM CDT Addendum created 04/12/23 1207 by Gayathri Wilson MD Clinical Note Signed documented in this encounter Plan of Treatment Not on file documented as of this encounter Visit Diagnoses Not on filedocumented in this encounter Administered Medications Inactive Administered Medications - up to 3 most recent administrations Medication Order MAR Action Action Date Dose Rate Site lactated ringers infusion IV, INTRA-PROCEDURE CONTINUOUS PRN, Starting on Sat04/12/23 at 1146, Until Sat04/12/23 at 1205, Routine, Anesthesia Intra-op New Bag 04/12/2023 11:46 AM CDT lidocaine PF 2% (XYLOCAINE MPF) injection IV, INTRA-PROCEDURE PRN, Starting on Sat04/12/23 at 1150, Until Sat04/12/23 at 1205, Routine, Anesthesia Intra-op Given 04/12/2023 11:50 AM CDT 10 mL propofoL (DIPRIVAN) injection IV, INTRA-PROCEDURE PRN, Starting on Sat04/12/23 at 1150, Until Sat04/12/23 at 1205, Anesthesia Intra-op Given 04/12/2023 11:54 AM CDT 100 mg Given 04/12/2023 11:51 AM CDT 40 mg Given 04/12/2023 11:50 AM CDT 120 mg documented in this encounter Care Teams Operating Systems Specialist Relationship Specialty Start Date End Date Josefina Martin MD [facility] [facility] [address] [place] [address] PCP - General Family Practice 04/10/23 documented as of this encounter
--- OUTSIDE RECORDS SUMMARY | 2024-10-28 20:59 | XMS_ITS | Encounter Summary ---
Author Organization [facility] Address [address] [place] [address] Care Team Providers Care Division Commander Name Role Phone Josefina Martin MD Primary Care Provider [phone] Encounter Details Date Type Department Care Team (Late st Contact Info) Description 12/09/2023 External Device Data STL ABSTRACTION Provider, Abstract [...] on filedocumented in this encounter Care Teams Division Commander Relationship Specialty Start Date End Date Josefina Martin MD [facility] [address] [address] PCP - General Family Practice 04/10/23 documented as of this encounter
--- OUTSIDE RECORDS SUMMARY | 2024-10-28 20:59 | XMS_ITS | Clinical Summary ---
Author Organization [facility] Address [address] [place] [address] Phone Care Team Providers Care Electrical Experimental Mechanic Name Role Phone Josefina Martin MD Primary Care Provider [phone] Allergies Active Allergy Reactions Criticality Noted Date Comments Penicillins Hives High 04/12/2023 Medications Medication Sig Dispensed Refills Start Date End Date Status HYDROcodone-acetaminop hen (HYCET) 7.5-325 mg/15 mL SolutionIndications:Mo rbid obesity Take 15 mL by mouth every 6 hours as needed for Pain. Max Daily Amount: 60 mL 280 mL 04/12/2023 Active Social History Tobacco Use Types Packs/Day Years [...] Comments Blood Pressure 118/96 09/27/2023 1:58 PM ELECTRONICS PARTS SALES REPRESENTATIVE Pulse 77 09/27/2023 1:58 PM ELECTRONICS PARTS SALES REPRESENTATIVE Temperature 36.5 ??C (97.7 ??F) 09/27/2023 1:37 PM CS T Respiratory Rate 29 09/27/2023 1:58 PM ELECTRONICS PARTS SALES REPRESENTATIVE Oxygen Saturation 96% 09/27/2023 1:58 PM ELECTRONICS PARTS SALES REPRESENTATIVE Inhaled Oxygen Concentration - - Weight 86.2 kg (190 lb) 09/27/2023 11:20 AM ELECTRONICS PARTS SALES REPRESENTATIVE Height 165.1 cm (5' 5 ) 09/27/2023 11:20 AM ELECTRONICS PARTS SALES REPRESENTATIVE Body Mass Index 31.62 09/27/2023 11:20 AM ELECTRONICS PARTS SALES REPRESENTATIVE Plan of Treatment Health Maintenance Due Date Last Done Comments HEPATITIS B VACCINES (1 of 3 - 19+ 3-dose series) 02/05/1992 CERVICAL CANCER SCREENING 2003 COLORECTAL SCREENING 2018 Colorectal Cancer Screening 2018 FIT-DNA Q 3 years 2018 FIT/FOBT Q 1 year 2018 Flex Sig/CT Colonography Q 5 years 2018 BREAST CANCER SCREENING 07/06/2021 07/06/20 20, 01/21/2019 ZOSTER VACCINE (1 of 2) 2023 INFLUENZA VACCINE (#1) 2024 07/21/2018 DTAP/TDAP/TD VACCINES (2 - T d or Tdap) 11/06/2028 11/06/2018 PNEUMOCOCCAL VACCINE 0-64 YEARS Aged Out No longer eligible b ased on patient's age to complete this topic Medical Devices Implanted Type Area Economic Specialist Device Identifier Shelf Expiration Date Model / Serial / Lot Intragastric Balln [employer] B-4800 - [id number] Implanted:Qty: 1 on 04/12/2023 by Nancy Warren MD at [facility] Other N/A: Esophagus [employer] [id number] 06/12/2023 B-4800 / [id number] / Description:600 ml of normal saline with 5m methyene blue in Balloon Care Teams Electrical Experimental Mechanic Relationship Specialty Start Date End Date Josefina Martin MD [facility] [facility] [address] [place] [address] PCP - General Family Practice 04/10/23
--- OUTSIDE RECORDS SUMMARY | 2024-10-28 20:59 | XMS_ITS | Referral Summary ---
Author Organization [facility] Address [address] [place] [address] Care Team Providers Care Ride Operator Name Role Phone Josefina Martin MD Primary Care Provider + [facility] [phone] Allergies Active Allergy Reactions Criticality Noted [...] Intramuscular 07/21/2018 Influenza, Unspecified 07/10/2020 Tdap 11/06/2018 Social History Tobacco Use Types Packs/Day Years [...] AM CDT Sexual Orientation Not on file Last Filed Vital Signs Vital Sign Reading Time Taken Comments Blood Pressure 125/69 08/24/2020 1:00 PM WEB CONTENT EDITOR Pulse 65 08/24/2020 1:00 PM WEB CONTENT EDITOR Temperature - - Respiratory Rate 16 08/24/2020 1:00 PM WEB CONTENT EDITOR Oxygen Saturation 97% 08/24/2020 1:00 PM WEB CONTENT EDITOR Inhaled Oxygen Concentration - - Weight 93.4 kg (206 lb) 08/24/2020 1:00 PM WEB CONTENT EDITOR Height 166.4 cm (5' 5.5 ) 08/24/2020 1:00 PM WEB CONTENT EDITOR Body Mass Index 33.76 08/24/2020 1:00 PM WEB CONTENT EDITOR Plan of Treatment Not on file Insurance [facility] Care Teams Ride Operator Relationship Specialty Start Date End Date Josefina Martin MD PCP - General Family Medicine 12/29/18 Neri Van MD Referring Physician Surgery 08/24/20
--- OUTSIDE RECORDS SUMMARY | 2024-10-28 20:59 | XMS_ITS | Encounter Summary ---
Author Organization [facility] Address [address] [place] [address] Care Team Providers Care Stonemason Name Role Phone Unavailable Primary Care Provider Unavailabl e Encounter Details Date Type Department Care Team (Late st Contact Info) Description 04/03/2023 Prep for Surgery [facility] Bariatrics [facility] [address] [id number] [facility] [address] [place] [address] Kait Stanford, RN Morbid obesity (Primary Dx) Social History Tobacco Use Types Packs/Day Years Used Date Smoking Tobacco: Never Assessed Sex and Gender Information Value Date Recorded Sex Assigned at Not on file Gender Identity Not on file Sexual Orientation Not on file documented as of this encounter Plan of Treatment Not on file documented as of this encounter Visit Diagnoses Diagnosis Morbid obesity- Primary documented in this encounter
--- OUTSIDE RECORDS SUMMARY | 2024-10-28 21:00 | XMS_ITS | Data Portability ---
Author Organization [place] - [facility], Main Office Address [address] [place] [address] Care Team Providers Care Spiritual Minister Name Role Phone ALTON MARTIN Primary Care Provider ALTON MARTIN Referring Provider Assessment Encounter Date Assessment Date Assessment LastModified by Organization Details LastModified Time 08/22/2023 08/22/2023 Patient has mode rately severe primary osteoarthritis left knee joint. Has chronic pain and has had 2 previous knee arthroscopies. At her request under sterile conditions I injected the patient's left knee joint in the office today with Euflexxa injection number 1. I will see her back next week for the 2nd injection left knee. We have talked about total knee arthroplasty in detail today as well she is likely going to consider this if she does not get the relief she is looking for I have told her she may not get good long-term relief but possibly decent temporary relief we will see how things go she voiced understanding and agrees above plan she will call for any further problems difficulties or questions. Not available 08/22/2023 15:26:03 08/29/2023 08/29/2023 the patient has moderately severe primary osteoarthritis left knee joint at her request under sterile conditions I injected the patient's left knee joint in the office today with Euflexxa injection number 2. I will see her back next week for the 3rd injection left knee she voiced understanding agrees above plan she will call for any further problems difficulties or questions. Not available 08/29/2023 15:28:10 09/05/2023 09/05/2023 The patient has moderately severe primary osteoarthritis left knee joint. Under sterile conditions I injected the patient's left knee joint in the office today with Euflexxa injection number 3. Patient tolerated procedure well. I will see her back in 6 weeks if she is still hurting and talk further. If she is doing well off see her back as needed we could do this again in 6 months versus cortisone in between she voiced understanding agrees above plan she will call for any further problems difficulties or questions and continue with current conservative measures for her osteoarthritis. Not available 09/05/2023 15:20:52 10/11/2023 10/11/2023 By previous x-ra y and exam the patient is noted to have moderately severe primary osteoarthritis left knee joint. Her main complaint is constant pain that limits her daily activities despite the long course of conservative measures as described she continues to hurt. She wants to consider total knee arthroplasty. Today I gave her a booklet on total knee arthroplasty for her home reading material. I also brought in the total knee model and described to her in detail the surgical procedure, the risks benefits limitations and alternatives to surgery including the risk of infection, DVT, scarring, failure of the implant long-term and the possibility of anesthesia complications. we talked about the postop recovery. And what to expect including pain management overnight stay in the hospital, physical therapy and follow-up course with the orthopedic surgeon. Patient voiced understanding and agrees above plan. She would like to see Dr. Norton in the near future we will get her an appointment with him. She voiced understanding agrees above plan she will call for any further problems difficulties or questions. Not available 10/11/2023 12:26:08 11/08/2023 11/08/2023 impression: Gela mitchell has severe medial compartment osteoarthritis left knee. This has progressed over the last 9 months. She gets no relief from cortisone injections or viscosupplementation and only partial relief with prescription strength ibuprofen. It bothers her with all activities of daily living. She has tried braces she has been through physical therapy and has had 2 prior arthroscopic surgeries as discussed above. She has been suffering with knee pain for the last 2 years. She would like to discuss the option of total knee replacement. I think that a total knee replacement rather than partial knee replacement would be best for her as she does have very high-grade cartilage irregularity in the patella moderate cartilage irregularity and trochlea and I am concerned that over time she is going to develop significant patellofemoral arthritis and she is only 48 and does have obesity. For these reasons I feel that total knee replacement we the best option for her. I have reviewed the risks of surgery with her in detail. I explained that it takes between 12 and 18 months to fully recover from knee replacement surgery, there will be numbness lateral to the incision, patients have difficulty kneeling after knee replacement surgery and some patients will have chronic anterior soreness. We discussed the risk of infection blood clots component loosening instability stiffness need for revision surgery bleeding transfusion nerve injury fracture and medical complications such as heart attack stroke pulmonary embolism and . I have given her the Ortho info handout on total knee arthroplasty. I explained that she would need to stop herZepbound injection that was scheduled for the week prior to her surgery so she will not going to surgery with a full stomach and she will stop her ibuprofen 1 week before. Because of her history of intolerance to Celebrex we would plan to use low-dose meloxicam after surgery while she is on the Eliquis for 2 weeks for DVT prophylaxis at than standard dosing of meloxicam while she is on the baby aspirin twice a day. She states that her teeth are in good condition and she is actually scheduled to see the dentist next week. I have explained that we would not be able to schedule her surgery until she has stop smoking and weaned off all nicotine products. She does not feel she is quite ready to accomplish this goal. Today she would like cortisone shots in both knees. I have discussed risk of side effects of injections including risk of infection with her. After ChloraPrep prep, 20 mg of Kenalog and 4 cc of 0.5% ropivacaine were injected into each knee without difficulty she tolerated this well. I will see her back in 3 months to assess her progress. I have discussed with her that when we schedule her left knee replacement we can give her cortisone shot the right knee at that time. She feels that she will probably want to have of right knee replacement 3 months later as well. 40 minutes were spent total care this patient more than half the time spent in [id number] care. [email or web address] Not available 11/09/2023 16:28:10 Plan of Treatment Reminders Order Date Submit Date Provider Last Modified By Organization Details Last Modified Time Details Appointments None recorded. Lab None recorded. Referral None recorded. Procedures knee aspiration/ injection (PROC) 2022 023 [email or web address] In-Office Order, Internal Use Only DO Not Attach Compendium DO Not Attach Compendium, Do Not Delete/merge, [id number] 3 15:05:57 knee aspiration/ injection (PROC) 2022 023 [email or web address] In-Office Order, Internal Use Only DO Not Attach Compendium DO Not Attach Compendium, Do Not Delete/merge, [id number] 3 15:11:54 knee aspiration/ injection (PROC) 2022 023 [email or web address] In-Office Order, Internal Use Only DO Not Attach Compendium DO Not Attach Compendium, Do Not Delete/merge, [id number] 3 15:11:46 injection/a spiration joint/bursa (PROC) - in office procedure, administere d by provider 2023 024 [email or web address] In-Office Order, Internal Use Only DO Not Attach Compendium DO Not Attach Compendium, Do Not Delete/merge, [id number] 4 10:54:06 Surgeries None recorded. Imaging XR, knee 2023 024 [email or web address] [facility] [place], [address], [place], [address], 4 15:02:54 Medication Orders Euflexxa 10 mg/mL (mw 2.4-3.6 million) intra-artic ular syringe 2022 023 [email or web address] [id number], [address] [place] [address], [id number], 4 09:15:54 Euflexxa 10 mg/mL (mw 2.4-3.6 million) intra-artic ular syringe 2022 023 [email or web address] [facility] #[id number], [address] [place] [address], [id number], 4 09:15:54 Euflexxa 10 mg/mL (mw 2.4-3.6 million) intra-artic ular syringe 2022 023 [facility][id number], [address], [place], [place], [id number], 4 09:15:54 Kenalog 10 mg/mL suspension for injection [address] [facility] [address] [facility], [place], [address], 4 12:24:03 ropivacaine (PF) 5 mg/mL (0.5 %) injection solution [address] [facility], [address], [place], [address], 4 12:24:03 Patient TargetsNo targets recorded. Patient InstructionsNo instructions recorded. Reason for Referral None Reported. Results Created Date Observation Date Name Description Value Unit Range Abnormal Flag Note LastModifiedBy Organization Detail LastModifiedTime 11/08/19 24 XR, knee No observ ation record ed. [email or web address] [facility] [place] [address] [facility] [address], [place], [address], 11/09/2023 16:22:54 Result Notes None recorded. Problems Name Problem SNOMED Code Status Onset Date Resolution Date Notes Provider Name and Address Organization Details Recorded Time Current tear of medial cartilage AND/OR meniscus of knee Active Not Available [facility] 3 07:32:08 Knee pain Active Not Available [facility] 3 07:32:09 Chondromal acia of patella 49004029 Active Not Available [facility] 3 07:32:09 Derangemen t of knee 16573965 Active Not Available [facility] 3 07:32:09 Osteoarthr itis 223487201 Active 2022 Not Available [facility] 3 07:32:09 Tear of medial meniscus of knee 326999493 Active 2022 Not Available [facility] 3 07:32:08 Bilateral osteoarthr itis of knees 4453259824063 07 Active 2022 Not Available [facility] 3 07:32:08 Tear of lateral meniscus of knee 736144780 Active 2022 Not Available [facility] 3 07:32:08 Current tear of medial cartilage AND/OR meniscus of knee Active 2022 Not Available [facility] 3 07:32:08 Tear of medial meniscus of knee 997132919 Active 2022 Not Available [facility] 3 07:32:08 Tear of lateral meniscus of knee 697324119 Active 2022 Not Available [facility] 3 07:32:08 Pain of left knee joint 7111287025610 07 Active 2022 HEIDI Rasmussen, [place] [facility] 3 15:04:09 Osteoarthr itis of left knee joint 1111206195471 09 Active 2023 GILDA King, [place] [facility] 4 09:19:03 Problem Notes None recorded. Procedures Surgical History Date Name Laterality Status Provider Name and Address Organization Details Recorded Time 06/20/20 23 Ortho - Cortisone Injection completed Candido Colmenares MD [address], [place], [address], [facility] 06/20/2023 14:09:24 03/28/20 23 Ortho - Cortisone Injection completed aCndido Colmenares MD [address], [place], [address], [facility] 03/28/2023 10:28:54 02/05/20 23 Ortho - Cortisone Injection completed Candido Colmenares MD [address], [place], [address], [facility] 2023 09:55:42 Knee completed GILDA King [place] [facility] 2023 09:27:11 Gallbladder Surgery completed Emilia Green, RMA [facility] 2023 09:27:18 Hysterectomy completed GILDA King [facility] 2023 09:27:28 Imaging Results Imaging Date Name Status LastModified by Organiz ation Details LastModified Time 11/08/2023 XR, knee completed [email or web address] [facility] [place] [address], [place], [address], 11/09/2023 16:22:54 Procedure Notes None recorded. Medical Equipment None Reported. Allergies Allergen ID Allergen Name Allergen Category Reaction Reaction Severity Criticality Documentation Date Start Date Code Code System Note Provider Name and Address Organization Details Recorded Time 65964 Medicinal product containin g penicilli n and acting as antibacte rial agent (product) medicatio n Not available Not available Not available 2023 37435 05 SNOMED GILDA King [facility] 09:24:57 Medications Name Sig Start Date Stop Date Status Note LastModified by Organization Details LastModified Time celecoxib 200 mg capsule TAKE 1 CAPSULE BY MOUTH EVERY DAY 11/08 completed Not Available Not Available Not Available metformin 500 mg tablet 10/29 completed Not Available Not Available Not Available venlafaxine ER 37.5 mg capsule,ext ended release 24 hr TAKE 1 CAPSULE BY MOUTH EVERY EVENING 02/04 completed Not Available Not Available Not Available prednisone 10 mg tablet 11/08 completed Not Available Not Available Not Available venlafaxine ER 75 mg capsule,ext ended release 24 hr TAKE 1 CAPSULE BY MOUTH IN THE EVENING active Not Available Not Available No t Available azithromyci n 250 mg tablet 2 tabs po qd x 1 day then 1 tab po qd x 4 days 02/04 completed Not Available Not Available Not Available hydrocodone 5 mg-acetamin ophen 325 mg tablet TAKE 1 TABLET BY MOUTH EVERY 6 HOURS 11/08 completed Not Available Not Available Not Available meloxicam 15 mg tablet TK 1 T PO ONCE D 02/04 completed Not Available Not Available Not Available cyanocobala min (vit B-12) 1,000 mcg tablet TAKE 1 TABLET BY MOUTH DAILY 11/08 completed Not Available Not Available Not Available ondansetron 8 mg disintegrat ing tablet DISSOLVE ONE TABLET ON THE TONGUE EVERY 4 HOURS FOR 24 HOURS THEN DISSOLVE 1 TABLET ON THE TONGUE EVERY 4 HOURS NEEDED FOR NAUSEA / VOMITING 11/08 completed Not Available Not Available Not Available prednisone 10 mg tablets in a dose pack Take 1 tab by mouth, 3 times a day for 3 daysTake 1 tab by mouth 2 times a day for 2 daysTake 1 tab by mouth once a day for 1 day 11/08 completed Not Available Not Available Not Available alprazolam 0.25 mg tablet TAKE 1 TABLET BY MOUTH THREE TIMES DAILY NEEDED FOR 30 DAYS 02/04 completed Not Available Not Available Not Available Kenalog 10 mg/mL suspension for injection in office procedure , administe red by provider 2023 active [facility]: [phone] Not Available Not Available Not Available pantoprazol e 40 mg tablet,susie yed release TAKE 1 TABLET BY MOUTH EVERY DAY 11/08 completed Not Available Not Available Not Available hyoscyamine 0.125 mg sublingual tablet DISSOLVE 1 TABLET UNDER THE TONGUE EVERY 4 HOURS NEEDED FOR SPAMS AND CRAMPING 11/08 completed Not Available Not Available Not Available omeprazole 20 mg capsule,del ayed release TAKE 1 CAPSULE BY MOUTH TWICE DAILY active Not Available Not Available No t Available diclofenac sodium 75 mg tablet,susie yed release TAKE 1 TABLET BY MOUTH TWICE DAILY 11/08 completed Not Available Not Available Not Available lorazepam 1 mg tablet TAKE 1 TABLET BY MOUTH EVERY 8 HOURS NEEDED FOR ANXIETY 11/08 completed Not Available Not Available Not Available scopolamine 1 mg over 3 days transdermal patch 11/08 completed Not Available Not Available Not Available Vitamin D2 1,250 mcg (50,000 unit) capsule 02/04 completed Not Available Not Available Not Available naproxen 500 mg tablet TAKE 1 TABLET BY MOUTH TWICE DAILY WITH FOOD 11/08 completed Not Available Not Available Not Available hydrocodone 7.5 mg-acetamin ophen 325 mg/15 mL oral solution 11/08 completed Not Available Not Available Not Available Euflexxa 10 mg/mL (mw 2.4-3.6 million) intra-artic ular syringe Inject 2.5 mL by intra-art icular route for 35 days. 11/08 completed Not Available Not Available Not Available aprepitant 40 mg capsule TAKE 1 CAPSULE BY MOUTH WITH A SIP OF WATER 3 HOURS PRIOR TO PROCEDURE AND TAKE 1 CAPSULE BY MOUTH EVERY 1 DAY AFTER 11/08 completed Not Available Not Available Not Available FeroSul 325 mg (65 mg iron) tablet TAKE 1 TABLET BY MOUTH DAILY 11/08 completed Not Available Not Available Not Available Cholestyram ine Light 4 gram oral powder 10/29 completed Not Available Not Available Not Available ropivacaine (PF) 5 mg/mL (0.5 %) injection solution in office procedure , administe red by provider 2023 active [facility] [phone] Not Available Not Available Not Available Dialyvite Vitamin D3 Max 1,250 mcg (50,000 unit) tablet TAKE 1 TABLET BY MOUTH ONCE A WEEK active Not Available Not Available No t Available Zepbound 5 mg/0.5 mL subcutaneou s pen injector INJECT 0.5ML SUBCUTANE OUSLY ONCE A WEEK, EVERY 7 DAYS active Not Available Not Available No t Available Zepbound 2.5 mg/0.5 mL subcutaneou s pen injector INJECT 2 & 1/2 (TWO & ONE-HALF) MG SUBCUTANE OUSLY ONCE A WEEK 11/08 completed Not Available Not Available Not Available Vitals Date Recorded Body height Body mass index (BMI) Body weight Provider Name and Address Organization Details Last Updated DateTime 08/22/2023 165.1 cm 31.6 kg/m2 57324.55 g Dahlia Thibodeaux CNA [facility] 08/22/2023 15:03:26 Date Recorded Body height Body mass index (BMI) Body weight Provider Name and Address Organization Details Last Updated DateTime 08/29/2023 165.1 cm 31.3 kg/m2 12493.37 g Dahlia Thibodeaux CNA [facility] 08/29/2023 15:09:04 Date Recorded Body height Provider Name an d Address Organization Details Last Updated DateTime 09/05/2023 165.1 cm Alma Mcclellan [employer] [facility] 09/05/2023 15:09:49 Date Recorded Body height Provider Name an d Address Organization Details Last Updated DateTime 10/11/2023 165.1 cm Alma Mcclellan [employer] [facility] 10/11/2023 11:12:33 Date Recorded Body height Body mass index (BMI) Body weight Provider Name and Address Organization Details Last Updated DateTime 11/08/2023 163.83 cm 32.1 kg/m2 96356.55 g GILDA King [employer] [facility] 11/08/2023 10:10:57 Social History Question Answer Notes LastModified by Organizat ion Details LastModified Time Tobacco Smoking Status Never Smoker GILDA King null, [place] [employer] [facility] 2023 09:26:54 What Is Your Level Of Alcohol Consumption? Occasional [email or web address] Information not available 2023 Sex: Unknown Functional Status None recorded. Mental Status None recorded. Family History Relationship Description Onset Age of this Age Resolved Age Notes LastModified by Organization Details LastModified Time Mother Family history of malignant neoplasm Not available 2022 09:26:27 Father Diabetes mellitus [email or web address] Not available 2022 09:26:35 Medical History No medical history recorded. Gynecological HistoryNo gynecological history recorded. Obstetrics History GPAL:G 0 P 0 0 0 0 Past Encounters Encounter ID Performer Location Encounter Start Date Encounter Closed Date Diagnosis/Indication Diagnosis SNOMED-CT Code Diagnosis ICD10 Code Diagnosis Note [id number] Candido Colmenares MD [facility] [place] [address] [place] [address] 2023 09:11:57 2023 11:09:26 Osteoarthritis 207633087 M17.0 Tear of me dial meniscus of knee 737842989 S83.242A Bilateral osteoarthritis of knees 5710053729 38023 M17.0 [id number] Candido Colmenares MD [facility] [place] [address] [place] [address] 02/07/2023 09:52:53 02/07/2023 10:41:20 Tear of medial meniscus of knee 980562339 S83.242A Osteoarthritis 409094579 M17.0 Bilateral osteoarthritis of knees 6403507555 03901 M17.0 Tear of la teral meniscus of knee 802214231 S83.282A [id number] Candido Colmenares MD [facility] [place] [address] [place] [address] 03/19/2023 15:41:35 03/19/2023 16:41:38 Tear of medial meniscus of knee 282193669 S83.242A Tear of la teral meniscus of knee 624852205 S83.282A Current te ar of medial cartilage AND/OR meniscus of knee 339723100 S83.209A Bilateral osteoarthritis of knees 4548641105 13711 M17.0 Postoperative visit 1836 69361 Z09 [id number] Candido Colmenares MD [facility] [place] [address] [place] [address] 03/28/2023 09:42:08 03/28/2023 10:27:48 Tear of medial meniscus of knee 900607463 S83.242A Tear of la teral meniscus of knee 918655450 S83.282A Current te ar of medial cartilage AND/OR meniscus of knee 710743167 S83.209A Bilateral osteoarthritis of knees 1008353253 20602 M17.0 [id number] Candido Colmenares MD [facility] [place] [address] [place] [address] 04/25/2023 10:18:27 04/25/2023 10:37:37 Tear of medial meniscus of knee 062871117 S83.242A Tear of la teral meniscus of knee 850971000 S83.282A Current te ar of medial cartilage AND/OR meniscus of knee 476787855 S83.209A Bilateral osteoarthritis of knees 1687089597 24501 M17.0 [id number] Candido Colmenares MD [facility] [place] [address] [place] [address] 05/23/2023 10:55:47 05/23/2023 11:46:29 Tear of medial meniscus of knee 162014224 S83.242D Tear of la teral meniscus of knee 900669410 S83.282D Bilateral osteoarthritis of knees 0752664501 87899 M17.0 Current te ar of medial cartilage AND/OR meniscus of knee 198830261 S83.209D [id number] Candido Colmenares MD [facility] [place] [address] [place] [address] 06/20/2023 13:52:37 06/20/2023 14:15:34 Tear of medial meniscus of knee 897221613 S83.242D Tear of la teral meniscus of knee 489445687 S83.282D Bilateral osteoarthritis of knees 1910589856 18013 M17.0 [id number] VERONIKA Krishnan [facility] [place] [address] [place] [address] 08/06/2023 14:39:28 08/06/2023 15:37:26 Tear of medial meniscus of knee 638774915 S83.242D Tear of la teral meniscus of knee 661239691 S83.282D Bilateral osteoarthritis of knees 5318761513 75375 M17.0 [id number] VERONIKA Krishnan [facility] [place] [address] [place] [address] 08/22/2023 14:58:58 08/29/2023 11:57:40 Bilateral osteoarthritis of knees 9388267924 46073 M17.0 Pain of le ft knee joint 9735025769 40354 M25.875 [id number] VERONIKA Krishnan [facility] [place] [address] [place] [address] 08/29/2023 15:02:40 08/29/2023 15:34:10 Bilateral osteoarthritis of knees 6289605081 01019 M17.0 Pain of le ft knee joint 8600594964 43760 M25.937 [id number] VERONIKA Krishnan [facility] [place] [address] [place] [address] 09/05/2023 15:04:42 09/05/2023 15:18:51 Bilateral osteoarthritis of knees 2170137551 56059 M17.0 Pain of le ft knee joint 8175515735 35184 M25.830 [id number] VERONIKA Krishnan [facility] [place] [address] [place] [address] 10/11/2023 11:09:08 10/11/2023 11:48:31 Bilateral osteoarthritis of knees 5275120577 50831 M17.0 Pain of le ft knee joint 1592553082 11597 M25.596 [id number] Raulito Norton MD [facility] [place] [address] [place] [address] 11/08/2023 09:05:02 11/11/2023 15:02:54 Osteoarthritis of left knee joint 3045674635 07965 M17.12 M17.11 Health Concerns Section Related Observation LastModified by Organization Detai ls LastModified Time None Recorded Concern Status LastModified by Organization Details LastModified Time None Recorded Advance Directives Directive None Recorded Payers Encounter Date Sequence Insurance Name Policy Number Policy Duran Covered Member ID Duran Member ID Guarantor Name 08/22/2023 1 [facility] [id number] Rebecca A [place] [id number] Rebecca A [place] 08/29/2023 1 [facility] [id number] Rebecca A [place] [id number] Rebecca A [place] 09/05/2023 1 [facility] [id number] Rebecca A [place] [id number] Rebecca A [place] 10/11/2023 1 [facility] [id number] Rebecca A [place] [id number] Rebecca A [place] 11/08/2023 1 [facility] [id number] Rebecca A [place] [id number] Rebecca A [place] Notes Date Note Type Note Provider Name and Address Organization Details Recorded Time 08/22/2023 text/html Patient returns for Euflexxa injection number 1 left knee. The patient has moderately severe primary osteoarthritis which is near [id number] medial compartment the previous knee arthroscopy x2 does show centrally ddzp-kq-sxoc changes in the medial compartment and her pain is localized here. At 48 years of age she is trying to avoid total knee arthroplasty cortisone has given her some relief previously she would like to try a round of gel shots she comes in today for the 1st 1 left knee. Right knee actually looks worse on x-ray but it does not bother her too much for the most part. VERONIKA Krishnan [address], [place], [address], [employer] 08/22/2023 15:26:22 08/29/2023 text/html patient returns for Euflexxa injection number 2 left knee. Has not gotten much relief from the 1st round of injection I have advised her to give it more time she does have moderately severe primary osteoarthritis which is near jhau-xz-xovu in the medial compartment she also has significant hypertrophic changes around the patellofemoral articulation with mild lateral patellar tilt and spurring. At 48 years of age she is trying to avoid total knee arthroplasty right knee actually looks worse than the left but the right knee does not bother her. Today denies any erythema heat effusion or signs of infection left knee. VERONIKA Krishnan [address], [place], [address], [employer] 08/29/2023 15:28:35 09/05/2023 text/html Patient returns for Euflexxa injection number 3 left knee. Patient has moderately severe primary osteoarthritis which is near vcnv-ww-zdcu in the medial compartment also has significant hypertrophic changes around the patellofemoral articulation with some mild lateral patellar tilt and spurring. She is trying to avoid total knee arthroplasty she is 48 years of age states so far she has not gotten a lot of relief I have advised her to give it more time see how things go. Denies any erythema heat effusion or signs of infection today. VERONIKA Krishnan [address], [place], [address], [employer] 09/05/2023 15:21:05 10/11/2023 text/html patient returns for recheck of her left knee. The patient has gone through a long course of conservative measures she has moderately severe primary osteoarthritis which is near snup-et-llcr in the medial compartment of the left knee and is vpiu-ti-adgy in the medial compartment of the right knee. The right knee surprisingly does not bother her too much. Patellofemoral articulation shows significant hypertrophic spurring more medially than laterally. Patient has been trying to avoid total knee arthroplasty since she is only 48 years of age but states she just cannot live with her left knee pain any more. She recently underwent a round of Euflexxa injections which really did not give her any relief. She states cortisone injection previous to that only gave her about a week of relief. She has had physical therapy used anti-inflammatory medication all without significant relief. Recently she went on vacation was unable to participate in activities that she wanted to do because of her pain despite being on naproxen diclofenac and using oral prednisone cortisone and gel shots and physical therapy her symptoms continue to be significant. She is to the point where she would like to talk about total knee arthroplasty. VERONIKA Krishnan [address] [facility], [facility] [address], [place], [address], [facility] [employer] [facility] 10/11/2023 12:26:36 11/08/2023 text/html patient is a 48-year-old female patient of Dr. Martin who is being seen by Andres Kevin recently who is referred for evaluation of worsening medial compartment left knee pain. She presented last spring had x-rays on 2023 which showed moderate to moderately severe medial compartment joint space narrowing in the left knee. She had a history of meniscus trimming in that same compartment left knee 5 years previously. An MRI scan was obtained February 05, 2023which demonstrated degenerative tearing of the remaining meniscus and subchondral insufficiency fracture central an intense Focal Subchondral bone edema anterior central medial tibial plateau. She underwent arthroscopic surgery to trim more of the medial meniscus in February with Dr. Colmenares. Unfortunately she has had progressively gradually worsening symptoms. She tried diclofenac which did help. She tried Celebrex which bothered her stomach too much and she plans to avoid that the future. Currently she is taking ibuprofen 800 mg 3 times a day consistently. She has been working hard to lose weight. She weighed 216 lb 2023 and today she weighs only 190 lb a 26 lb reduction. She has been taking THC gummies nightly which does help her sleep and alleviates her nighttime pain. She had series of Euflexxa injections August which did help and just prior to that she had a cortisone injection which did help. She would like to discuss surgical options. Incidental note from the x-rays from last January, these also showed tmse-xz-rlyq medial compartment osteoarthritis in the right knee. The right knee does bother her a fair amount but the left knee is worse. Her past medical history is significant for history of reflux disease for which she takes omeprazole occasionally. She was taking it 20 mg twice daily for. Time but her symptoms have improved quite a bit She has more recently started Zepbound weekly injections for additional weight loss. She takes Effexor. She smokes cigarettes and has smoked for 15 years. Raulito Norton MD [address] [place] [address], [facility] [address], [place], [address], [facility] 11/09/2023 16:28:29 OBGyn Episode No OBEpisode recorded.
--- OUTSIDE RECORDS SUMMARY | 2024-10-28 21:00 | XMS_ITS | Data Portability ---
Author Organization [place] [facility] auto[facility] - [facility] [place] Address [address] [place] [address] Assessment Encounter Date Assessment Date Assessment LastModified by Organization Details LastModified Time 02/15/2023 02/15/2023 Pt here with below diagnosis - pt here for evaluation for their condition, evaluation of their medication use, and discussion for alternative treatments. [email or web address] Not available 02/15/2023 14:04:05 02/18/2023 02/18/2023 Patient was seen today for follow up visit. We discussed patients future use of MMJ. We discussed the risks and benefits. Pt understands that we will certify patient, but the recommendation does not constitute a prescription for medical cannabis. Patient will receive an email from us with instructions on how to proceed by the evening of the next . [email or web address] Not available 02/18/2023 11:14:51 Plan of Treatment Reminders Order Date Submit Date Provider Last Modified By Organization Details Last Modified Time Details Appointments None record ed. Lab None record ed. Referral None record ed. Procedures None record ed. Surgeries None record ed. Imaging None record ed. Medication Orders None record ed. Patient TargetsNo targets recorded. Patient Instructions Encounter Date Encounter Id Patient Instructions Last Modified By Organization Details Last Modified Time 02/15/2023 [id number] arthritis: care instructions [email or web address] Not available 02/15/2023 14:04:24 osteoarthritis: care instructions [email or web address] Not available 02/15/2023 14:04:24 I have discussed the risks and benefits of Medical Marijuana. Pt understands I am not prescribing this medication. I am certifying that this patient has a condition that is recognized by the state as qualifying for medical marijuana and this recommendation does not constitute a prescription for medical cannabis. Pt understands that my physician written certification form does not guarantee Medical Marijuana certification nor does it endorse the patient as needing medical marijuana. Patient understands that Medical Marijuana is a drug that the federal government has classified cannabis as a Schedule I controlled substance. Schedule 1 substances are defined, in part, as having (1) a high potential for abuse; (2) no currently accepted medical use in treatment in the [place]; and (3) a lack of accepted Safety for use under medical supervision. Federal law prohibits the manufacture, distribution and possession of cannabis even in states, which have modified their state laws to treat cannabis as a medicine. Pt also agrees that me, and the [facility] are my treating physicians and that we are in charge of treating the patient's conditions and that the patient will make a good vish effort to remain under my treatment plan and acknowledge there will be follow up visits from this date forward to monitor the patient's condition. Discussed risks and benefits of Medical Marijuana. I have spent time discussing the patients condition, pain/medical management of the patient given their debilitating condition, the risks and benefits of this medication, a history and physical, gathering old medical records to look at the disease processes being evaluated, and answering of all questions. [email or web address] Not available 02/15/2023 14:04:05 02/18/2023 [id number] I have discussed the risks and benefits of Medical Marijuana. Pt understands I am not prescribing this medication. I am certifying that this patient has a condition that is recognized by the state as qualifying for medical marijuana and this recommendation does not constitute a prescription for medical cannabis. Pt understands that my physician written certification form does not guarantee Medical Marijuana certification nor does it endorse the patient as needing medical marijuana. Patient understands that Medical Marijuana is a drug that the federal government has classified cannabis as a Schedule I controlled substance. Schedule 1 substances are defined, in part, as having (1) a high potential for abuse; (2) no currently accepted medical use in treatment in the [place]; and (3) a lack of accepted Safety for use under medical supervision. Federal law prohibits the manufacture, distribution and possession of cannabis even in states, which have modified their state laws to treat cannabis as a medicine. Pt also agrees that me, and the [facility] are my treating physicians and that we are in charge of treating the patient's conditions and that the patient will make a good vish effort to remain under my treatment plan and acknowledge there will be follow up visits from this date forward to monitor the patient's condition. Discussed risks and benefits of Medical Marijuana. I have spent time discussing the patients condition, pain/medical management of the patient given their debilitating condition, the risks and benefits of this medication, a history and physical, gathering old medical records to look at the disease processes being evaluated, and answering of all questions. Attending Attestation Note ? I reviewed the chart and I agree with PA note and management plan. ? I was available via text/email/phone/Fuhu during the patient's evaluation. ? I reviewed the patient's pertinent studies (labs/x-rays/EKG/e tc.). [email or web address] Not available 02/28/2023 04:18:00 Reason for Referral None Reported. Procedures Surgical History Date Name Laterality Status Provider Name and Address Organization Details Recorded Time Colonoscopy completed VALERY MICHAEL[address], [place], [address], [place] [facility] 02/18/2023 11:16:52 Knee Surgery completed VALERY MICHAEL[address], [address], [place], [address], [place] [facility] 02/18/2023 11:16:52 Lumpectomy completed VALERY MICHAEL[address], [address], [place], [address], [place] [facility] 02/18/2023 11:16:52 Total Hysterectomy completed SHARONDA RAMOS PA-C [address], [address], [place], [address], [place] [facility] 02/18/2023 11:16:52 Imaging Results None recorded. Procedure Notes None recorded. Medical Equipment None Reported. Allergies Allergen ID Allergen Name Allergen Category Reaction Reaction Severity Criticality Documentation Date Start Date Code Code System Note Provider Name and Address Organization Details Recorded Time 61058 penicilli n G Not available hives moderate Not available 02/18/2023 7980 [employer] SHARONDA RAMOS PA-C [address], [address], [place], [address], [facility] 11:16:51 Medications Name Sig Start Date Stop Date Status Note LastModified by Organization Details LastModified Time metformin 500 mg tablet active Not Available Not Available No t Available venlafaxine ER 37.5 mg capsule,extende d release 24 hr TAKE 1 CAPSULE BY MOUTH EVERY EVENING active Not Available Not Available No t Available prednisone 10 mg tablet active Not Available Not Available No t Available venlafaxine ER 75 mg capsule,extende d release 24 hr TAKE 1 CAPSULE BY MOUTH EVERY EVENING active Not Available Not Available No t Available alprazolam 0.25 mg tablet TAKE 1 TABLET BY MOUTH THREE TIMES DAILY NEEDED FOR 30 DAYS active Not Available Not Available No t Available Effexor 75 mg tablet active Not Available Not Available Not Available Cholestyramine Light 4 gram oral powder active Not Available Not Available Not Available Vitals None Recorded Social History None recorded. Functional Status None recorded. Mental Status None recorded. Family History Relationship Description Onset Age of this Age Resolved Age Notes LastModified by Organization Details LastModified Time Mother Anxiety disorder [email or web address] Not available 02/18 11:16:52 Mother Depressive disorder [email or web address] Not available 02/18 11:16:52 Mother Obesity [email or web address] Not availabl e 02/18/2023 11:16:52 Maternal Grandmother Obesity [email or web address] Not available 10/2022 11:16:52 Maternal Grandmother Diabetes mellitus [email or web address] Not available 02/18 11:16:52 Daughter Anxiety disorder [email or web address] Not available 02/18 11:16:52 Daughter Depressive disorder [email or web address] Not available 02/18 11:16:52 Sister Depressive disorder [email or web address] Not available 02/18 11:16:52 Father Diabetes mellitus [email or web address] Not available 02/18 11:16:52 Medical History Condition Response Anxiety Disorder Y Arthritis Y Diverticulitis Y Depression Y Gynecological HistoryNo gynecological history recorded. Obstetrics History GPAL:G 0 P 0 0 0 0 Past Encounters Encounter ID Performer Location Encounter Start Date Encounter Closed Date Diagnosis/Indication Diagnosis SNOMED-CT Code Diagnosis ICD10 Code Diagnosis Note [id number] Saloni Redding MD [facility] [address] [place] [address] 02/15/2023 13:54:15 02/15/2023 14:24:56 Osteoarthritis 349424366 M19.90 [id number] MD Annalisa Carnes [facility] [address] [place] [address] 02/18/2023 11:14:08 02/18/2023 11:43:44 Osteoarthritis 773664914 M19.90 Pt cleared to advance through our medical Cannabis program. Health Concerns Section Related Observation LastModified by Organization Detai ls LastModified Time None Recorded Concern Status LastModified by Organization Details LastModified Time None Recorded Advance Directives Directive None Recorded Payers Encounter Date Sequence Insurance Name Policy Number Policy Duran Covered Member ID Duran Member ID Guarantor Name 02/15/2023 1 [facility] [id number] Rebecca [place] [id number] Reebcca [place] 02/18/2023 1 [facility] [id number] Rebecca [place] [id number] Rebecca [place] Notes Date Note Type Note Provider Name and Address Organization Details Recorded Time 02/15/2023 text/html The patient woul d like to discuss medications, the disease, and how to handle it. Pt would also like to discuss alternative treatments to this condition. Pt was referred here for further evaluation and treatment if necessary. Patient has a diagnosis of qualifying condition - OSTEOARTHRITIS Saloni Redding MD [address], [address], [place], [address], [facility] 02/15/2023 14:05:19 02/18/2023 text/html The patient woul d like to discuss medications, the disease, and how to handle it. Pt would also like to discuss alternative treatments to this condition. Pt was referred here for further evaluation and treatment if necessary. Patient has a diagnosis of qualifying condition - osteoarthritis. Pt here for 2nd visit to discuss condition and develop a relationship. We discussed the above and future use of medical marijuana. MD Eleazar Carnes[address], [place], [address], [facility] 02/28/2023 04:18:05 OBGyn Episode No OBEpisode recorded.
== END 2024-10-23 13:20 | disposition home or self-care (01) ==
LOC: ANHSURGERY 05:51 → ANH3MEDSUR 13:16
PROVIDERS: Physician Assistant Surgical; PCP Family Medicine; Visit Provider Orthopaedic Surgery
PROC: (CPT 27447; principal; 2024-10-22 07:30)
DX: M17.11 Unilateral primary osteoarthritis, right knee (principal); M25.761 Osteophyte, right knee; M22.2X1 Patellofemoral disorders, right knee; F12.90 Cannabis use, unspecified, uncomplicated; E66.9 Obesity, unspecified; Z68.37 Body mass index [BMI] 37.0-37.9, adult; Z79.1 Long term (current) use of non-steroidal anti-inflammatories (NSAID); Z98.890 Other specified postprocedural states; Z90.49 Acquired absence of other specified parts of digestive tract; Z87.891 Personal history of nicotine dependence; Z80.41 Family history of malignant neoplasm of ovary; Z80.49 Family history of malignant neoplasm of other genital organs; Z80.8 Family history of malignant neoplasm of other organs or systems; Z82.49 Family history of ischemic heart disease and other diseases of the circulatory system
CPT/HCPCS: 27447; 36415; 73560; 80048; 85025; 86850; 86900; 86901; 97110; 97116; 97161; 97165; 97535; A9270; C1713; C1776; J0171; J0690; J1100; J1885; J2003; J2250; J2270; J2405; J2704; J2795; J3010; J7120

== ENCOUNTER 2024-11-20 08:00 | Outpatient (RCR) | payer OTHER, SELFPAY ==
--- NOTE | 2024-10-23 08:18 | WPDANESPN ---
Anes - Prog Note Post-Op Date/Time: 10/23/24 08:18 Pain Score (VAS): 0 Patient Feedback: Patient satisfied with anesthetic care.
--- NOTE | 2024-10-28 14:53 | OPREHPOC ---
Outpatient Therapy Plan of Care This is a Multidisciplinary Plan of Care that may contain components documented by all disciplines (PT, OT, and ST.) PT Problem 1 PT Problem #1 Knowledge Deficit PT Goal 1 Goal / Goal Update * indep with HEP Target Visit 8 PT Problem 2 PT Problem #2 Pain PT Goal 1 Goal / Goal Update * pain at worst 4/10 Target Visit 8 PT Goal 2 Goal / Goal Update * pt report with sleeping, awaken 1x/night due to knee pain Target Visit 8 PT Problem 3 PT Problem #3 Impaired Range of Motion PT Goal 1 Goal / Goal Update * increase R knee active ROM to improve transfer and mobility/ stairs skills: sitting 0'-120' Target Visit 8 PT Problem 4 PT Problem #4 Impaired Strength PT Goal 1 Goal / Goal Update * single leg standing R 10 seconds, to improve stance phase with gait pattern Target Visit 8 PT Problem 5 PT Problem #5 Impaired Functional Mobility PT Goal 1 Goal / Goal Update * 2 minute walking test distance of 425' with cane Target Visit 8 PT Goal 2 Goal / Goal Update * up/down 12 steps with alternating step pattern and one hand railing Target Visit 8
--- NOTE | 2024-10-28 14:53 | PTOPEVAL1 ---
Assessment and note entered by Bettina Gray, PT Evaluation Information Assessment Status Evaluation ICD-10 Condition Codes (PT) Encounter for other orthopedic aftercare Z47.89, Aftercare following joint replacement surgery Z47. 1 Other ICD-10 Condition Codes ( R TKR Z96.651 PT) Onset 10-22-24 Subjective Information getting around home OK, using the wheeled walker; have been doing the exercises from the hospital-- walking every hour and stretching knee bend and straightening; Activity: 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 Reported Pain Level Pain Score Self Report Additional Pain Score Comments pain range past few days 5-10/10 taking oxycodone 3-4 x/day, always take at night, to help her sleep; activity tolerance with standing/walking at home 10 minutes with sleeping, awaken 3-4 x/night due to knee pain Assessment PT Clinical Summary Smitha had R TKR on 10-22-24. PT was delayed in initiation due to snow/bad weather. She had L TKR in March 2024, so knows what to expect post op. Self assessment with LE functional scale of 63% limitation in activity level. 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 With the evaluation: active ROM of R knee in sitting: (-20') to 110'; with passive extension stretch in supine (-15'); mat exercises x 7-10 reps; 2 minute walking test distance of 265' with wheeled walker; edema and bruising over R knee and lower leg, with reports of tenderness of her skin; Skilled PT services are indicated for modalities to decrease edema and pain, therapeutic exercises to increase knee ROM and strength with progression to lesser assistive device and education for HEP and gait training. Plan of Care Interventions Electrical Stimulation,Intermittent Compression Pump,Manual Therapy,Neuro Re-education,Patient/ Caregiver Education,Therapeutic Activities, Therapeutic Exercise,Other Other Interventions taping PT Services Indicated Yes Treatment Frequency and 2x/wk for 8 visits Duration These treatments will address the objective and functional deficits as defined above. The patient will be advanced safely and appropriately in order for the patient to progress towards his/her prior level of function. Additional exercises will be introduced and as well as a comprehensive home exercise program upon discharge, if needed, ?to ensure carryover of functional gains achieved in the clinic. This treatment plan has been reviewed and agreement upon by the patient.
--- NOTE | 2024-10-30 09:02 | PCPTNOTE ---
Pt canceled today due to weather.
--- NOTE | 2024-11-20 08:56 | PTOPDC ---
Assessment and note entered by Bettina Gray, PT Assessment Status Discharge ICD-10 Condition Codes (PT) Encounter for other orthopedic aftercare Z47.89, Aftercare following joint replacement surgery Z47. 1 Other ICD-10 Condition Codes ( R TKR Z96.651 PT) Onset 10-22-24 Subjective Information still having popping in the back of my knee, not hurting as much as it was, but still there; saw few days ago, he said to avoid pushing flexion motion and hold knee straight as much as I can; not using the cane anymore; have been working from home; doing light home activity but avoiding the stairs, to decrease flexion stretch on knee; have been doing all of the exercises; at her dr appt few days ago, said she did not need any more PT. pt agreed to d/c PT and continue with exercises on her own at home. Reported Pain Level Pain Score Self Report Additional Pain Score Comments pain range in the past week 0-5/10; having popping in back of her knee increase pain: first thing in AM, twisting knee to clean foot decrease pain: rest, tylenol PRN sleeping is good- not awaken due to knee pain; Assessment PT Clinical Summary Smitha has received 7 PT sessions; she called and canceled 1 appointment. With today's assessment: pain rating of 0-5/10; popping at R lateral hamstring with tenderness over mid to distal hamstring and ITB; self assessment LE functional scale rating of 11% limitation in activity level; no awakening from sleeping due to knee pain; active ROM in sitting: (-12') to 115; in supine, extension stretch to (- 10'); 2 minute walking test distance of 525'; is no longer using assistive device, and has R knee flexion with stance phase. Education completed for HEP. The goals were partially achieved. Discharge PT. She is to continue with HEP and continue to work on knee extension ROM. Plan of Care PT Services Indicated No
== END 2024-11-20 11:04 | disposition home or self-care (01) ==
LOC: ANHPT 08:00
PROVIDERS: PCP Family Medicine
DX: Z47.1 Aftercare following joint replacement surgery (principal); M17.11 Unilateral primary osteoarthritis, right knee; Z96.651 Presence of right artificial knee joint
CPT/HCPCS: 97014; 97016; 97110; 97140; 97161; 97530; G0283

== ENCOUNTER 2024-12-10 16:02 | Outpatient (CLI) | payer OTHER, SELFPAY ==
--- NOTE | ~2024-12-10 | MM_ITS ---
EXAMINATION: MM screening urszula BI w lana HISTORY: Screening TECHNIQUE: Craniocaudal and mediolateral oblique 3-D tomosynthesis images were obtained and synthetic 2-D images were generated. CAD analysis was submitted and interpreted. COMPARISON: Comparison to multiple prior studies sequentially, with oldest reviewed study dated 02/2020. BREAST PARENCHYMAL COMPOSITION: Not dense: There are scattered areas of fibroglandular density. FINDINGS: Bilateral breast asymmetries are stable. There is no evidence of suspicious mass, calcifica tion, or architectural distortion to suggest malignancy in either breast. There has been no suspiciou s interval change. IMPRESSION: 1. No mammographic evidence of malignancy. 2. Recommend routine screening mammography in one year. BI-RADS Category 1: Negative Reviewed, dictated and finalized at location B. F ENVIRONMENTAL COMMITMENT OFFICER
--- OUTSIDE RECORDS SUMMARY | 2024-12-10 16:04 | XMS_ITS | Clinical Summary ---
Author Organization [facility] Address [address] [place] [address] Phone Care Team Providers Care Soaping Department Supervisor Name Role Phone Josefina Martin MD Primary Care Provider Allergies Active Allergy Reactions Criticality Noted Date Comments Penicillins Hives High 04/12/2023 Medications HYDROcodone-acet aminophen (HYCET) 7.5-325 mg/15 mL SolutionIndicati ons:Morbid obesity (CMS/HCC) Take 15 mL by mouth every 6 hours as needed for Pain. Max Daily Amount: 60 mL 280 mL 04/12/2023 2:24 PM CDT 04/12/2023 Active Encounters Date Type Department Care Team Description 11/12/2024 External Device Data STL ABSTRACTION Provider, Abstract from Last 3 Months Social History Tobacco Use Types Packs/Day Years Used Date Smoking Tobacco: Former Cigarettes Tobacco Cessation:Counseling Given: Not Answered Alcohol Use Standard Drinks/Week Comments Not Currently 0 (1 standard drink = 0.6 oz pur e alcohol) Feeling Safe Answer Date Recorded Are you in a relationship wi th someone who hurts you emotionally and/or physically? No 09/27/2023 Comments Unknown Sex and Gender Information Value Date Recorded Sex Assigned at Not on file Legal Sex Female 2:56 PM CDT Gender Identity Not on file Sexual Orientation Not on file Last Filed Vital Signs Vital Sign Reading Time Taken Comments Blood Pressure 118/96 09/27/2023 1:58 PM SCRUB WHEEL OPERATOR Pulse 77 09/27/2023 1:58 PM SCRUB WHEEL OPERATOR Temperature 36.5 C (97.7 F) 09/27/2023 1:37 PM SCRUB WHEEL OPERATOR Respiratory Rate 29 09/27/2023 1:58 PM SCRUB WHEEL OPERATOR Oxygen Saturation 96% 09/27/2023 1:58 PM SCRUB WHEEL OPERATOR Inhaled Oxygen Concentration - - Weight 86.2 kg (190 lb) 09/27/2023 11:20 AM SCRUB WHEEL OPERATOR Height 165.1 cm (5' 5 ) 09/27/2023 11:20 AM SCRUB WHEEL OPERATOR Body Mass Index 31.62 09/27/2023 11:20 AM SCRUB WHEEL OPERATOR Plan of Treatment Health Maintenance Due Date Last Done Comments HEPATITIS B VACCINES (1 of 3 - 19+ 3-dose series) 02/05/1992 CERVICAL CANCER SCREENING 2003 COLORECTAL SCREENING 2018 Colorectal Cancer Screening 2018 FIT-DNA Q 3 years 2018 FIT/FOBT Q 1 year 2018 Flex Sig/CT Colonography Q 5 years 2018 BREAST CANCER SCREENING 07/06/2021 07/06/20, 01/21/2019 ZOSTER VACCINE (1 of 2) 2023 INFLUENZA VACCINE (#1) 2024 07/21/2018 DTAP/TDAP/TD VACCINES (2 - T d or Tdap) 11/06/2028 11/06/2018 PNEUMOCOCCAL VACCINE 0-64 YEARS Aged Out No longer eligible b ased on patient's age to complete this topic Medical Devices Implanted Type Area Fx Artist Device Identifier Shelf Expiration Date Model / Serial / Lot Intragastric Homer Sanderss B-4800 - [id number] Implanted:Qty: 1 on 04/12/2023 by Nancy Warren MD at [facility] Other N/A: Esophagus [employer] [id number] 06/12/2023 B-4800 / [id number] 2 / Description:600 ml of normal saline with 5m methyene blue in Balloon Insurance [facility] [id number] [place] [address] RX [employer] Member Subscriber Plan / Payer (Ef fective 2023-Present) Name:Rebecca Pantoja Relation to Subscriber:Self Name:Rebecca Pantoja Subscriber ID:Not on file Payer ID:Not on file Group ID:[id number] Type:RX Commercial Address: [address] Care Teams Soaping Department Supervisor Relationship Specialty Start Date End Date Josefina Martin MD [facility] [address] [id number] PCP - General Family Practice 04/10/23
--- OUTSIDE RECORDS SUMMARY | 2024-12-10 16:04 | XMS_ITS | Referral Summary ---
Author Organization [facility] Address [address] [place] [address] Care Team Providers Care Telephone Operator Receptionist Name Role Phone Josefina Martin MD Primary Care Provider + [facility] MD Unavailable [phone] Allergies Active Allergy Reactions Criticality Noted [...] ductal hyperplasia of right breast 12/2020 Immunizations Immunization Administration Dates Next Due Hep A, Adult [...] Comments Blood Pressure 125/69 08/24/2020 1:00 PM PRECISION INSTRUMENT AND TOOL MAKER Pulse 65 08/24/2020 1:00 PM [employer]CISION INSTRUMENT AND TOOL MAKER Temperature - - Respiratory Rate 16 08/24/2020 1:00 PM [employer]CISION IN[employer]UMENT AND TOOL MAKER Oxygen Saturation 97% 08/24/2020 1:00 PM [employer]CISION IN[employer]UMENT AND TOOL MAKER Inhaled Oxygen Concentration - - Weight 93.4 kg (206 lb) 08/24/2020 1:00 PM [employer]CISION INSTRUMENT AND TOOL MAKER Height 166.4 cm (5' 5.5 ) 08/24/2020 1:00 PM [employer]CISION IN[employer]UMENT AND TOOL MAKER Body Mass Index 33.76 08/24/2020 1:00 PM [employer] IN[employer]UMENT [employer] TOOL [employer]KER Plan of Treatment Not on file Insurance [facility] Care Teams Telephone Operator Receptionist Relationship Specialty Start Date End Date Josefina Martin MD PCP - General Family Medicine 12/29/18 Neri Van MD Referring Physician Surgery 08/24/20
--- OUTSIDE RECORDS SUMMARY | 2024-12-10 16:04 | XMS_ITS | Clinical Summary ---
Author Organization [facility] Address [address] [place] [address] Care Team Providers Care Pheresis Specialist Name Role Phone Josefina Martin MD [facility] [phone] Allergies Active Allergy Reactions Criticality Noted [...] Comments Blood Pressure 125/69 08/24/2020 1:00 PM THEATRE INSTRUCTOR Pulse 65 08/24/2020 1:00 PM THEATRE INSTRUCTOR Temperature - - Respiratory Rate 16 08/24/2020 1:00 PM THEATRE INSTRUCTOR Oxygen Saturation 97% 08/24/2020 1:00 PM THEATRE INSTRUCTOR Inhaled Oxygen Concentration - - Weight 93.4 kg (206 lb) 08/24/2020 1:00 PM THEATRE INSTRUCTOR Height 166.4 cm (5' 5.5 ) 08/24/2020 1:00 PM THEATRE INSTRUCTOR Body Mass Index 33.76 08/24/2020 1:00 PM THEATRE INSTRUCTOR Plan of Treatment Not on file Insurance [facility] Care Teams Pheresis Specialist Relationship Specialty Start Date End Date Josefina Martin MD PCP - General Family Medicine 12/29/18 Neri Van MD Referring Physician Surgery 08/24/20
--- OUTSIDE RECORDS SUMMARY | 2024-12-10 16:04 | XMS_ITS | Data Portability ---
Author Organization [place] [facility] - [facility] [place] Address [address] [place] [address] Assessment Encounter Date Assessment Date Assessment LastModified [...] by the evening of the next . [email or web address] Not available 02/18/2023 11:14:51 Plan of Treatment [...] By Organization Details Last Modified Time 02/15/2023 [id number] arthritis: care instructions [email or web address] Not available 02/15/2023 [...] questions. [email or web address] Not available 02/15/2023 14:04:05 02/18/2023 [id number] I have discussed the risks and benefits [...] Pt also agrees that me, and the [facility] Team are my treating physicians and [...] answering of all questions. Attending Attestation Note I reviewed the chart and I agree with PA note and management plan. I was available via text/email/phone/LEAFER during the patient's evaluation. I reviewed the patient's pertinent studies (labs/x-rays/EKG/e tc.). [email or web address] Not available 02/28/2023 04:18:00 Reason for Referral None Reported. Procedures Surgical History Date Name Laterality Status Provider Name and Address Organization Details Recorded Time Colonoscopy completed VALERY MICHAEL0 [address], [place], [address], [place] [facility] 02/18/2023 11:16:52 Knee Surgery completed SHARONDA RAMOS PA-C [address], [place], [address], [place] [facility] 02/18/2023 11:16:52 Lumpectomy completed SHARONDA RAMOS PA-C [address], [place], [address], [place] [facility] 02/18/2023 11:16:52 Total Hysterectomy completed SHARONDA RAMOS PA-C [address], [place], [address], [place] [facility] 02/18/2023 11:16:52 Imaging Results None recorded. Procedure Notes None recorded. Medical Equipment None Reported. Allergies Allergen ID Allergen Name Allergen Category Reaction Reaction Severity Criticality Documentation Date Start Date Code Code System Note Provider Name and Address Organization Details Recorded Time 33869 penicilli n G Not available hives moderate Not available 02/18/2023 7980 RxNorm VALERY MICHAEL0 [address], [place], [address], [facility] 11:16:51 Medications Name Sig Start Date [...] Organization Details LastModified Time Mother Anxiety disorder Not available 02/18 11:16:52 Mother Depressive disorder [email or web address] Not available 02/18 11:16:52 Mother Obesity [email or web address] Not availabl e 02/18/2023 11:16:52 Maternal Grandmother Obesity [email or web address] Not available 10/2022 11:16:52 Maternal Grandmother Diabetes mellitus [email or web address] Not available 02/18 11:16:52 Daughter Anxiety disorder [email or web address] Not available 02/18 11:16:52 Daughter Depressive disorder [email or web address] Not available 02/18 11:16:52 Sister Depressive disorder [email or web address] Not available 02/18 11:16:52 Father Diabetes mellitus [email or web address] Not available 02/18 11:16:52 Medical History Condition Response Depression Y Anxiety Disorder Y Arthritis Y Diverticulitis Y Gynecological HistoryNo gynecological history recorded. Obstetrics History GPAL:G 0 P 0 0 0 0 Past Encounters Encounter ID Performer Location Encounter Start Date Encounter Closed Date Diagnosis/Indication Diagnosis SNOMED-CT Code Diagnosis ICD10 Code Diagnosis Note [id number] [facility] [address] [place] [address] 02/15/2023 13:54:15 02/15/2023 14:24:56 Osteoarthritis 485562674 M19.90 [id number] Isabelle [facility]el [facility] [address] [place] [address] 02/18/2023 11:14:08 02/18/2023 11:43:44 Osteoarthritis [id number] M19.90 Pt cleared to advance through our medical Cannabis program. Health Concerns Section Related Observation LastModified by Organization Detai ls LastModified Time None Recorded Concern Status LastModified by Organization Details LastModified Time None Recorded Advance Directives Directive None Recorded Payers Encounter Date Sequence Insurance Name Policy Number Policy Duran Covered Member ID Duran Member ID Guarantor Name 02/15/2023 1 [facility] [id number] Rebecca [place] [id number] Rebecca [place] 02/18/2023 1 [facility] [id number] Rebecca [place] [id number] Rebecca [place] Notes Date Note Type Note [...] - OSTEOARTHRITIS Saloni Redding MD [address], [place], [address], [facility] 02/15/2023 14:05:19 02/18/2023 text/html The [...] above and future use of medical marijuana. Isabelle Paetl MD [address], [place], [address], [facility] [place] 02/28/2023 04:18:05 OBGyn Episode No OBEpisode recorded.
--- OUTSIDE RECORDS SUMMARY | 2024-12-10 16:04 | XMS_ITS | Clinical Summary ---
Author Organization [facility] Address [facility] [place] [address] Care Team Providers Care Traffic Signal Supervisor Maintenance Name Role Phone Josefina Martin MD Primary Care Provider [phone] Allergies Active Allergy Reactions Criticality Noted Date [...] 70 08/03/2020 1:20 PM CDT Temperature 36.8 C (98.3 F) 08/03/2020 1:20 PM CDT Respiratory Rate 16 08/03/2020 1:20 PM CDT [...] Vaccines (1 of 2) 2023 COVID-19 Vaccine (2023-2 5 season) 2024 Influenza Adult (#1) 2024 Meningococcal B Vaccine Aged Out No l onger eligible based on patient's age to complete this topic Meningococcal Vaccine Aged Out No janett brenda [...] for marker placement RECOMMENDATION: 1: Clinical management right COMMENTS: Narrative 07/06/2020 2:29 PM CDT EXAMINATION: Digital right diagnostic mammogram EXAM DATE/TIME: 07/06/2020 2:09 PM REASON FOR EXAM: POST BX Right breast calcifications COMPARISON: 06/16/2020 TECHNIQUE: Digital [...] adjacent punctate calcifications are possible. us Neri Van MD MAMMO Final Result from Last 3 Months or Most Recently Relevant to Health Maintenance [place] [address] [place] [address] [facility] Care Teams Traffic Signal Supervisor Maintenance Relationship Specialty Start Date End Date Josefina Martin MD PCP - General FAMILY PRACTICE 01/20/19
--- OUTSIDE RECORDS SUMMARY | 2024-12-10 16:04 | XMS_ITS | Encounter Summary ---
Author Organization [facility] Address [facility] [place] [address] Care Team Providers Care Web Search Evaluator Name Role Phone Josefina Martin MD Primary Care Provider [phone] Encounter Details Date Type Department Care Team (Late st Contact Info) Description 07/26/2020 Prep for Procedure [facility]-Ad[facility] [place] [address] Neri Van MD [address] [place] [id number] Social History Tobacco Use Types Packs/Day [...] DETECTED NOT DETECTED 08/01/2020 9:46 PM CDT babberly [facility] Comment: A Not Detected (negative) test result for this test means that SARS- CoV-2 RNA was not present in the specimen above the limit of detection. A negative result does not rule out the possibility of COVID-19 and should not be used as the sole basis for treatment or patient management decisions. If COVID-19 is still suspected, based on exposure [...] providers and patients using the following websites: https://www.[employer]/home/Covid-19/HCP/NAAT/fact-sheet2 https://www.[employer]/home/Covid-19/Patients/NAAT/ fact-sheet2 This test has been authorized by the FDA under an Emergency Use Authorization (EUA) for use by authorized laboratories. Due to the current public health emergency, [facility] is receiving a high volume of samples [...] including collection of an additional specimen. Methodology: Nucleic Acid Amplification Test (NAAT) includes RT-PCR or TMA Additional information about COVID-19 can be found at the [facility] website: www.[employer]/Covid19. Test performed at [facility] [address] [place] [address] Director: JONATHAN FOWLER DO,MPH FIRST TEST YES 07/31/2020 2:30 PM CDT [facility] EMPLOYED IN HEALTHCARE NO 07/31/2020 2:30 PM CDT [facility] SYMPTOMATIC DEFINED BY CDC NO 07/31/2020 2:30 PM CDT [facility] DATE OF SYMPTOM ONSET NO 07/31/2020 3:57 PM CDT [facility] HOSPITALIZATION STATUS NO 07/31/2020 2:30 PM CDT [facility] PATIENT IN ICU NO 07/31/2020 2:30 PM CDT [facility] RESIDENT OF [facility] NO 07/31/2020 2:30 PM CDT [facility] NOT 07/31/2020 2:30 PM CDT [facility] PATIENT'S RACE WHITE OR 07/31/2020 2:30 PM CDT [facility] ETHNICITY NONHISPANIC 07/31/2020 2:30 PM CDT [facility] SOURCE (QST) NASOPHARYNGEAL SWAB 07/31/2020 2:30 PM CDT [facility] NASOPHARYNGEAL SWAB / Unknown 07/31/2020 9:50 AM CDT us Neri Van MD MICROBIOLOGY - GENERAL ORDERAB LES Final Result Performing Organization Address City/State/[facility] Co de Phone Number [facility] [address] [place] [address], [place] [phone] [place] [address], documented in this encounter Visit Diagnoses Diagnosis Preop examination- Primary Preoperative examination, unspecified documented in this encounter Additional Health Concerns Infection Onset Date Last Indicated Resolved Time COVID-19 Rule Out 07/31/2020 07/31/2020 08/01/2020 9:46 PM CDT documented as of this encounter Care Teams Web Search Evaluator Relationship Specialty Start Date End Date Josefina Martin MD PCP - General FAMILY PRACTICE 01/20/19 documented as of this encounter
== END 2024-12-10 16:03 | disposition home or self-care (01) ==
LOC: ANHIMG 16:02
PROVIDERS: PCP Family Medicine; Visit Provider Family Medicine
DX: Z12.31 Encounter for screening mammogram for malignant neoplasm of breast (principal)
CPT/HCPCS: 77063; 77067

== ENCOUNTER 2025-05-11 10:10 | Outpatient (CLI) | payer OTHER, SELFPAY ==
--- NOTE | ~2025-05-11 | XR_ITS ---
XR finger 1st LT min 2V 05/11/2025 10:27 Indication: Left first finger pain Procedure: 3 views left first finger Comparison: No prior studies for comparison. Findings: No fracture, subluxation or dislocation. No soft tissue abnormality. No foreign bodies. Impression: 1: No acute bone or joint abnormality. Reviewed, dictated and finalized at location A. Impression: 1: No acute bone or joint abnormality.
--- NOTE | ~2025-05-11 | XR_ITS ---
EXAM/ PROCEDURE: XR finger 1st RT min 2V - 05/11/2025 10:21 CDT HISTORY: 50 years old Female with S63.659A - Sprain of metacarpophalangeal joint of unspeci... COMPARISON: None available TECHNIQUE: Three view(s) FINDINGS/ IMPRESSION: There are no fractures or dislocations.Joint spaces are within normal limits. Reviewed, dictated and finalized at location A.
== END 2025-05-11 10:11 | disposition home or self-care (01) ==
PROVIDERS: PCP Family Medicine; Visit Provider Family Medicine
DX: S63.659A Sprain of metacarpophalangeal joint of unspecified finger, initial encounter (principal); M79.643 Pain in unspecified hand; X58.XXXA Exposure to other specified factors, initial encounter
CPT/HCPCS: 73140

== ENCOUNTER 2025-05-18 09:03 | Outpatient (RCR) | payer OTHER, SELFPAY ==
--- NOTE | 2025-05-18 10:09 | OTOPEVAL1 ---
Assessment and note entered by Gabriel Pearson, BIRDIE/Roxi, CHT Evaluation Information Assessment Status Evaluation Diagnosis Sprain of MCP joint of unspecified finger, Radial styloid tenosynovitis ICD-10 Condition Codes (OT) Pain in right hand M79.641,Pain in left hand M79. 642 Subjective Information Patient reports onset of pain about a week ago. She points to the dorsum of her thumbs near the MCP joint as the site of her pain. She has been wearing neoprene thumb braces with activity. Reported Pain Level Pain Score 2,2: Self Report Assessment OT Clinical Summary Patient referred to OT with bilateral thumb pain and dx of de Quervain's tenosynovitis. She has a positive Finkelstien's bilaterally. Patient having difficulties with lifting and twisting due to pain. She also has reduced gross strength of the wrists and hands. Skilled OT indicated to maximize functional use of bilateral hands through use of modalities, manual therapy, therapeutic exercise, and HEP progression. Plan of Care Interventions Therapeutic Exercise,Manual Therapy,Neuro Re- education,Therapeutic Activities,Ultrasound, Paraffin OT Services Indicated Yes Treatment Frequency and 2x/week for 6 visits Duration These treatments will address the objective and functional deficits as defined above. The patient will be advanced safely and appropriately in order for the patient to progress towards his/her prior level of function. Additional exercises will be introduced and as well as a comprehensive home exercise program upon discharge, if needed, ?to ensure carryover of functional gains achieved in the clinic. This treatment plan has been reviewed and agreement upon by the patient.
--- NOTE | 2025-05-18 10:09 | OPREHPOC ---
Outpatient Therapy Plan of Care This is a Multidisciplinary Plan of Care that may contain components documented by all disciplines (PT, OT, and ST.) OT Problem 1 OT Problem #1 Knowledge Deficit OT Goal 1 Goal / Goal Update 1. Patient to be independent with instructed materials. Target Visit 6 OT Problem 2 OT Problem #2 Pain OT Goal 1 Goal / Goal Update 1. Patient to report reduced bilateral thumb pain to 0/10 at rest and 2/10 or less during ADLs. Target Visit 6 OT Problem 3 OT Problem #3 Impaired Strength OT Goal 1 Goal / Goal Update 1. Patient to increase gross wrist strength bilaterally for ADLs as demonstrated by being able to progress to 2 lb. strengthening in all planes without pain. 2. Patient to increase gross promotion producer strength bilaterally by 8 lbs. Target Visit 6
--- NOTE | 2025-06-01 10:17 | PCOTNOTE ---
Patient did not show up for scheduled appointment this date. Patient was contacted via phone. It rang once and then message was left on her reminding of scheduled appointment and offering a reschedule. Phone number provided.
--- NOTE | 2025-06-03 14:18 | OTOPDC ---
Assessment and note entered by Gabriel Pearson, OTR/L, ALEJANDRAT OT D/C Notification 06/03/25 Assessment Status Discharge - Pt Not Present Diagnosis Sprain of MCP joint of unspecified finger, Radial styloid tenosynovitis ICD-10 Condition Codes (OT) Pain in right hand M79.641,Pain in left hand M79. 642 OT Clinical Summary Patient evaluated by OT on 05/18/25. She unfortunately has not shown for 3 consecutive appointments since her initial evaluation. We are unable to get a hold of her at this time. D/C OT.
== END 2025-06-03 16:17 | disposition home or self-care (01) ==
LOC: ANHGOSHOT 09:03
PROVIDERS: PCP Family Medicine; Visit Provider Family Medicine
DX: S63.641D Sprain of metacarpophalangeal joint of right thumb, subsequent encounter (principal); S63.642D Sprain of metacarpophalangeal joint of left thumb, subsequent encounter; M65.4 Radial styloid tenosynovitis [de Quervain]
CPT/HCPCS: 97110; 97140; 97165

== ENCOUNTER 2025-08-23 10:48 | Outpatient (CLI) | payer OTHER, SELFPAY ==
--- OUTSIDE RECORDS SUMMARY | 2025-08-23 12:00 | XMS_ITS | Clinical Summary ---
Author Organization [facility] Address [address] [place] [address] Phone Care Team Providers Care Mechanical Integrity Specialist Name Role Phone Josefina Martin MD Primary Care Provider Allergies Active Allergy Reactions Criticality Noted Date Comments Penicillins Hives High 04/12/2023 Medications HYDROcodone-acet aminophen (HYCET) 7.5-325 mg/15 mL SolutionIndicati ons:Morbid obesity (CMS/HCC) Take 15 mL by mouth every 6 hours as needed for Pain. Max Daily Amount: 60 mL 280 mL 04/12/2023 2:24 PM CDT 04/12/2023 Active Social History Tobacco Use Types [...] Comments Blood Pressure 118/96 09/27/2023 1:58 PM DIRECTOR COMPENSATION Pulse 77 09/27/2023 1:58 PM DIRECTOR COMPENSATION Temperature 36.5 C (97.7 F) 09/27/2023 1:37 PM DIRECTOR COMPENSATION Respiratory Rate 29 09/27/2023 1:58 PM DIRECTOR COMPENSATION Oxygen Saturation 96% 09/27/2023 1:58 PM DIRECTOR COMPENSATION Inhaled Oxygen Concentration - - Weight 86.2 kg (190 lb) 09/27/2023 11:20 AM DIRECTOR COMPENSATION Height 165.1 cm (5' 5) 09/27/2023 11:20 AM DIRECTOR COMPENSATION Body Mass Index 31.62 09/27/2023 11:20 AM DIRECTOR COMPENSATION Plan of Treatment Health Maintenance Due Date Last Done Comments HEPATITIS B VACCINES (1 of 3 - 19+ 3-dose series) 02/05/1992 COLORECTAL SCREENING 2018 Colorectal Cancer Screening 2018 FIT-DNA Q 3 years 2018 FIT/FOBT Q 1 year 2018 Flex Sig/CT Colonography Q 5 years 2018 BREAST CANCER SCREENING 07/06/2021 07/06/2020, 01/21 ZOSTER VACCINE (1 of 2) 2023 INFLUENZA VACCINE (#1) 2025 07/21/2018 DTAP/TDAP/TD VACCINES (2 - Td or Tdap) 11/06/2028 Medical Devices Implanted Type Area Implementation Advisor Device Identifier Shelf Expiration Date Model / Serial / Lot Intragastric Balln Orbera Sys B-4800 - [id number] Implanted:Qty: 1 on 04/12/2023 by Nancy Warren MD at [facility] Other N/A: Esophagus [employer] [id number] 06/12/2023 B-4800 / [id number] 2 / Description:600 ml of normal saline with 5m methyene blue in Balloon [place] [address] [employer] [facility] [id number] RX [employer] RX Member Subscriber Plan / Payer (Ef fective 2023-Present) Name:Rebecca Pantoja Relation to Subscriber:Self Name:Rebecca Pantoja Subscriber ID:Not on file Payer ID:Not on file Group ID:[id number] Type:RX Commercial Address: [address] Care Teams Mechanical Integrity Specialist Relationship Specialty Start Date End Date Josefina Martin MD [address] [facility] [address] [place] [id number] PCP - General Family Practice 04/10/23
--- OUTSIDE RECORDS SUMMARY | 2025-08-23 12:00 | XMS_ITS | Clinical Summary ---
Author Organization [facility] Address [facility] [place] [address] Care Team Providers Care Top Closer Name Role Phone Josefina Martin MD Primary Care Provider [phone] Allergies Active Allergy Reactions Criticality Noted Date [...] 8:25 AM CDT Height 165.1 cm (5' 5) 08/03/2020 8:25 AM CDT Body Mass Index 33.53 08/03/2020 8:25 AM CDT Plan of Treatment Health Maintenance Due Date Last Done Comments Colorectal Cancer Screening Colonoscopy (10 Years) 1973 Annual Physical 02/05/1976 Hepatitis C 1991 DTaP, Tdap and Td Vaccines ( 1 - Tdap) 02/05/1992 Hepatitis B Vaccines (1 of 3 - 19+ 3-dose series) 02/05/1992 Mammogram Screening 07/06/2022 07/06/2020, 01/21/2019 Pneumococcal Vaccine: 50+ Years (1 of 1 - PCV) 2023 Zoster Vaccines (1 of 2) 2023 COVID-19 Vaccine ( - 2024-2 6 season) 2025 Influenza Adult (#1) 2025 Hepatitis A Vaccines Aged Out No long er eligible based on patient's age to complete this topic Meningococcal B Vaccine Aged Out No l [...] Recently Relevant to Health Maintenance [place] [address] [facility] Care Teams Top Closer Relationship Specialty Start Date End Date Josefina Martin MD PCP - General FAMILY PRACTICE 01/20/19
--- OUTSIDE RECORDS SUMMARY | 2025-08-23 12:00 | XMS_ITS | Clinical Summary ---
Author Organization [facility] Address [address] [place] [address] Care Team Providers Care Shearer [employer]ed [employer] Boards Name Role Phone Josefina Martin MD Primary Care Provider + [facility] Unavailable [phone] Allergies Active Allergy Reactions Criticality Noted [...] Comments Blood Pressure 125/69 08/24/2020 1:00 PM GATE PERSON Pulse 65 08/24/2020 1:00 PM GATE PERSON Temperature - - Respiratory Rate 16 08/24/2020 1:00 PM GATE PERSON Oxygen Saturation 97% 08/24/2020 1:00 PM GATE PERSON Inhaled Oxygen Concentration - - Weight 93.4 kg (206 lb) 08/24/2020 1:00 PM GATE PERSON Height 166.4 cm (5' 5.5) 08/24/2020 1:00 PM GATE PERSON Body Mass Index 33.76 08/24/2020 1:00 PM GATE PERSON Plan of Treatment Not on file Insurance [facility] Care Teams [employer] Bo[employer] Relationship Specialty Start Date End Date Josefina Martin MD PCP - General Family Medicine 12/29/18 Neri Van MD Referring Physician Surgery 08/24/20
--- OUTSIDE RECORDS SUMMARY | 2025-08-23 12:00 | XMS_ITS | Encounter Summary ---
Author Organization [facility] Address [facility] [place] [address] Care Team Providers Care Laboratory Tester Name Role Phone Josefina Martin MD Primary Care Provider [phone] Encounter Details Date Type Department Care Team (Late st Contact Info) Description 07/26/2020 Prep for Procedure [place] Pre-Admission Testing [facility] [place] [address] Neri Van MD [address] [place] [id number] Social History Tobacco Use Types Packs/Day [...] DETECTED NOT DETECTED 08/01/2020 9:46 PM CDT [facility] Comment: A Not Detected (negative) [...] providers and patients using the following websites: https://[email or web address]/home/Covid-19/HCP/NAAT/fact-sheet2 https://www.[employer]/home/Covid-19/Patients/NAAT/ fact-sheet2 This test has been authorized by the FDA under an Emergency Use Authorization (EUA) for use by authorized laboratories. Due to the current public health emergency, [facility] is receiving a high volume of samples [...] about COVID-19 can be found at the [facility] website: www.[employer]/Covid19. Test performed at [facility] [id number] [place] [address] Director: JONATHAN FOWLER DO,MPH FIRST TEST YES 07/31/2020 2:30 PM CDT [facility] EMPLOYED IN HEALTHCARE NO 07/31/2020 2:30 PM CDT [facility] SYMPTOMATIC DEFINED BY CDC NO 07/31/2020 2:30 PM CDT [facility] DATE OF SYMPTOM ONSET NO 07/31/2020 3:57 PM CDT [facility] HOSPITALIZATION STATUS NO 07/31/2020 2:30 PM CDT [facility] PATIENT IN ICU NO 07/31/2020 2:30 PM CDT [facility] RESIDENT OF [facility] CARE NO 07/31/2020 2:30 PM CDT [facility] NOT 07/31/2020 2:30 PM CDT [facility] PATIENT'S RACE WHITE OR 07/31/2020 2:30 PM CDT [facility] ETHNICITY NONHISPANIC 07/31/2020 2:30 PM CDT [facility] SOURCE (QST) NASOPHARYNGEAL SWAB 07/31/2020 2:30 PM CDT [facility] NASOPHARYNGEAL SWAB / Unknown 07/31/2020 9:50 AM CDT us Neri Van MD MICROBIOLOGY - GENERAL ORDERAB LES Final Result Performing Organization Address City/State/[facility] Co de Phone Number [facility] [address] [place] [address], [place] [phone] [place] [address], documented in this encounter Visit Diagnoses Diagnosis Preop examination- Primary Preoperative examination, unspecified documented in this encounter Additional Health Concerns Infection Onset Date Last Indicated Resolved Time COVID-19 Rule Out 07/31/2020 07/31/2020 08/01/2020 9:46 PM CDT documented as of this encounter Care Teams Laboratory Tester Relationship Specialty Start Date End Date Josefina Martin MD PCP - General FAMILY PRACTICE 01/20/19 documented as of this encounter
[2025-08-23 13:56] LABS: Influenza A QL RT-PCR Negative (Negative); Influenza B QL RT-PCR Negative (Negative); RSV RNA, RT-PCR Negative (Negative); SARS-CoV-2 RNA PCR Negative (Negative)
== END 2025-08-23 10:49 | disposition home or self-care (01) ==
PROVIDERS: PCP Family Medicine; Visit Provider Student in an Organized Health Care Education/Training Program
DX: R05.9 Cough, unspecified (principal); R50.9 Fever, unspecified; Z20.822 Contact with and (suspected) exposure to COVID-19
CPT/HCPCS: 87637